=== PATIENT | male | born 1950 | race Caucasian/White ===

== ENCOUNTER 2017-03-04 06:00 | Emergency (ER) | payer BC ==
[2017-03-04 06:55] LABS: CHLORIDE,CL 103 mEq/L (98-106); SODIUM,NA 137 mEq/L (136-145)
--- NOTE | 2017-03-04 07:10 | EDM.PDOC ---
<Marla Evans - Last Filed: 03/04/17 06:59> ED HPI GENERAL MEDICAL PROBLEM - General Chief Complaint: General Stated Complaint: CP Time Seen by Provider: 03/04/17 06:35 Source of Information: Reports: Patient History Limitations: Reports: No Limitations - History of Present Illness INITIAL COMMENTS - FREE TEXT/NARRATIVE: Patient presents today with concerns of back and chest pain. He was at work at the [employer] and around 4 am he started having pain in his back and radiated through to this chest. Went and sat out in his car and took 2 aspirin but the pain didn't subside. He states he was belching a great deal but that did not relieve the pain. Patient has a cardiac/DC history, had CABG 6 years ago. Has not had a stress test since that time. Did have some shortness of breath with this. No nausea or diaphoresis. He relates that prior to his DC, he was feeling very weak, got very diaphoretic and legs did not feel they would hold him up. Did not experience those same symptoms today. 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 Also relates that he has broke posterior ribs that on occasion to give him pain but that also feels different than today. He is pain free while at rest now. Onset: sudden Duration: Hour(s): Location: Reports: chest, back Quality: Reports: Ache Severity: mild Improves with: Reports: Rest Associated Symptoms: Reports: chest pain, shortness of breath (breathing became heavier but didn't feel short of breath), weakness (legs feel somewhat weak). 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 Chest Pain Score (Numeric/FACES): 4 - Related Data Allergies Allergy/AdvReac Type Severity Reaction Status Date / Time meperidine [From Demerol] Allergy Cannot Verified 03/04/17 06:14 Remember Penicillins Allergy Airway Verified 03/04/17 06:14 Tightness Home Meds: Home Meds Aspirin/Calcium Carbonate/Mag [Aspirin Buffered 325 mg Tab] 325 mg PO DAILY 03/07 [History] Ibuprofen 600 mg PO Q6H PRN 07/30/16 [History] Cholecalciferol (Vitamin D3) [Vitamin D3] 2,000 unit PO DAILY 08/03/16 [History] Magnesium 250 mg PO DAILY 08/03/16 [History] atorvaSTATin Calcium [Atorvastatin Calcium] 20 mg PO DAILY 08/03/16 [History] Lisinopril 10 mg PO DAILY 10/10/16 [History] Past Medical History HEENT History: Reports: Hard of hearing Cardiovascular History: Reports: High cholesterol, Hypertension, [place] Other Cardiovascular History: reports that pt had a heart attack in 2010 follow by a "5 way coronary artery bypass." Gastrointestinal History: Reports: GERD, Other (see below) Other Gastrointestinal History: colitis Genitourinary History: Reports: Renal calculus Musculoskeletal History: Reports: Arthritis, Fracture, Neck pain, chronic Other Musculoskeletal History: "I have broken lots of bones. 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." Oncologic (Cancer) History: Reports: Other (see below) Other Oncologic History: skin CA Dermatologic History: Reports: Other (see below) Other Dermatologic History: skin CA - Past Surgical History Cardiovascular Surgical History: Reports: Other (see below) Other Cardiovascular Surgeries/Procedures: 5 way bypass GI Surgical History: Reports: Cholecystectomy Dermatological Surgical History: Reports: Skin biopsy Social & Family History - Family History Family Medical History: Noncontributory Cardiac: Reports: [place] Oncologic: Reports: Brain - Tobacco Use Smoking Status *Q: Never Smoker Second Hand Smoke Exposure: No - Caffeine Use Caffeine Use: Reports: None - Recreational Drug Use Recreational Drug Use: No ED ROS GENERAL - Review of Systems Review Of Systems: See Below Constitutional: Reports: Weakness. Denies: Fever, Chills, Malaise, Fatigue, Decreased Appetite HEENT: Reports: Rhinitis, Sinus Problem Respiratory: Denies: Shortness of Breath, Other Cardiovascular: Reports: Chest Pain. Denies: Edema, Lightheadedness Endocrine: Reports: Fatigue GI/Abdominal: Denies: Abdominal Pain, Nausea, Vomiting : Reports: No Symptoms Musculoskeletal: Reports: Back Pain, Joint Pain Skin: Reports: No Symptoms Neurological: Reports: No Symptoms Psychiatric: Reports: No Symptoms ED EXAM, GENERAL - Physical Exam Exam: See Below Exam Limited By: No Limitations General Appearance: Alert, WD/WN, No Apparent Distress Ears: Normal External Exam, Normal TMs Nose: Normal Inspection, Normal Mucosa, No Blood Throat/Mouth: Normal Inspection, Normal Oropharynx Head: Normocephalic Neck: Normal Inspection, Supple, Non-Tender Respiratory/Chest: No Respiratory Distress, Lungs Clear, Normal Breath Sounds Cardiovascular: No Edema, Bradycardia GI/Abdominal: Normal Bowel Sounds, Soft, Non-Tender Extremities: Normal Inspection, Normal Capillary Refill Neurological: Alert, Oriented Skin Exam: Warm, Dry EKG INTERPRETATION EKG Date: 03/04/17 Rhythm: NSR Rate (beats/min): 52 Course - Vital Signs Last Recorded V/S: Last Vital Signs Temp 97.2 F 03/04/17 10:17 Pulse 51 L 03/04/17 10:17 Resp 18 03/04/17 10:17 BP 107/65 03/04/17 10:17 Pulse Ox 96 03/04/17 10:17 - Orders/Labs/Meds Orders: Active Orders 24 hr Category Date Time Status EKG Documentation Completion [RC] STAT Care 03/04/17 06:25 Active Chest 2V [CR] Stat Exams 03/04/17 06:07 Taken Labs: Laboratory Tests 03/04/17 03/04/17 03/04/17 Range/Units 06:32 06:32 06:32 WBC 6.9 (5.0-10.0) 10^3/uL RBC 4.24 L (4.50-6.00) 10^6/uL Hgb 12.9 L (14.0-18.0) g/dL Hct 38.6 L (40.0-54.0) % MCV 91.0 (82.0-94.0) fL MCH 30.4 (27.0-32.0) pg MCHC 33.4 (33.0-38.0) g/dL RDW Coeff of Keith 12.3 (11.0-15.0) % Plt Count 157 (150-400) 10^3/uL Neut % (Auto) 64.9 (35-85) % Lymph % (Auto) 24.0 (10-55) % Cloud % (Auto) 7.9 (0-16) % Eos % (Auto) 3.1 (0-5) % Baso % (Auto) 0.1 (0-3) % Neut # (Auto) 4.46 (1.80-7.00) 10^3/uL Lymph # (Auto) 1.65 (1.00-4.80) 10^3/uL Cloud # (Auto) 0.54 (0.00-0.80) 10^3/uL Eos # (Auto) 0.21 (0.00-0.45) 10^3/uL Baso # (Auto) 0.01 10^3/uL PT 11.0 (9.7-12.3) SEC INR 1.02 (0.92-1.18) APTT 27.9 (24.5-30.9) SEC Sodium 137 (136-145) mEq/L Potassium 4.2 (3.5-5.0) mEq/L Chloride 103 (98-106) mEq/L Carbon Dioxide 26 (21-32) mmol/L BUN 35 H D (7-18) mg/dL Creatinine 1.4 H (0.7-1.3) mg/dL Est Cr Clr Drug Dosing 51.57 mL/min Estimated GFR (MDRD) 51 L (>=60) mL/min Glucose 144 H D (75-99) mg/dL Calcium 8.5 (8.4-10.1) mg/dL Lactate Dehydrogenase 159 (100-190) U/L Creatine Kinase 296 H (35-232) U/L Troponin I < 0.017 (0.00-0.06) ng/mL Amylase 68 (25-115) U/L 03/04/17 Range/Units 11:09 WBC (5.0-10.0) 10^3/uL RBC (4.50-6.00) 10^6/uL Hgb (14.0-18.0) g/dL Hct (40.0-54.0) % MCV (82.0-94.0) fL MCH (27.0-32.0) pg MCHC (33.0-38.0) g/dL RDW Coeff of Keith (11.0-15.0) % Plt Count (150-400) 10^3/uL Neut % (Auto) (35-85) % Lymph % (Auto) (10-55) % Cloud % (Auto) (0-16) % Eos % (Auto) (0-5) % Baso % (Auto) (0-3) % Neut # (Auto) (1.80-7.00) 10^3/uL Lymph # (Auto) (1.00-4.80) 10^3/uL Cloud # (Auto) (0.00-0.80) 10^3/uL Eos # (Auto) (0.00-0.45) 10^3/uL Baso # (Auto) 10^3/uL PT (9.7-12.3) SEC INR (0.92-1.18) APTT (24.5-30.9) SEC Sodium (136-145) mEq/L Potassium (3.5-5.0) mEq/L Chloride (98-106) mEq/L Carbon Dioxide (21-32) mmol/L BUN (7-18) mg/dL Creatinine (0.7-1.3) mg/dL Est Cr Clr Drug Dosing mL/min Estimated GFR (MDRD) (>=60) mL/min Glucose (75-99) mg/dL Calcium (8.4-10.1) mg/dL Lactate Dehydrogenase 173 (100-190) U/L Creatine Kinase 270 H (35-232) U/L Troponin I < 0.017 (0.00-0.06) ng/mL Amylase (25-115) U/L - Re-Assessments/Exams Free Text/Narrative Re-Assessment/Exam: 03/04/17 07:24 Patient EKG shows sinus olman but he relates that is chronic for him. CPK is elevated, troponin normal. Patient informed. Due to his medical history and symptoms, will repeat his troponin in 4 hours and possibly, if normal, schedule him for a cardiolyte stress test. Departure - Departure Disposition: Home, Self-Care 01 Clinical Impression: Chest wall pain Back pain Qualifiers: Back pain location: thoracic back pain Chronicity: chronic Back pain laterality : midline Qualified Code(s): M54.6 - Pain in thoracic spine; G89.29 - Other chronic pain - Discharge Information Referrals: Dewayne Cramer MD [Primary Care Provider] - Forms: ED Department Discharge Additional Instructions: Follow up with Dr. Cramer in 1 week for the back pain or if chest pains return Tylenol or advil as needed for pain Ice to back where it is most painful Recheck sooner if symptoms change <Kathy Dailey - Last Filed: 03/04/17 11:50> Course - Re-Assessments/Exams Free Text/Narrative Re-Assessment/Exam: 03/04/17 11:46 In to discuss normal repeat labs. Will discharge home Note for work given to return Follow up with Dr. Cramer in 1 week for recheck. Departure - Departure Time of Disposition: 11:48 Condition: good - Problem List & Annotations (1) Back pain SNOMED Code(s): 757771665 Code(s): M54.9 - DORSALGIA, UNSPECIFIED Status: Acute Priority: High Current Visit: Yes Qualifiers: Back pain location: thoracic back pain Chronicity: chronic Back pain laterality: midline Qualified Code(s): M54.6 - Pain in thoracic spine; G89.29 - Other chronic pain (2) Chest wall pain SNOMED Code(s): 977402879 Code(s): R07.89 - OTHER CHEST PAIN Status: Acute Priority: High Current Visit: Yes - Problem List Review Problem List Initiated/Reviewed/Updated: Yes
[2017-03-04 10:18] VITALS: BP 107/65
== END 2017-03-04 11:56 | disposition home or self-care (01) ==
LOC: CC.ED 06:00
DX: R07.89 Other chest pain (principal); M54.6 Pain in thoracic spine; G89.29 Other chronic pain; E78.00 Pure hypercholesterolemia, unspecified; I10 Essential (primary) hypertension; I25.2 Old myocardial infarction; K21.9 Gastro-esophageal reflux disease without esophagitis; M19.90 Unspecified osteoarthritis, unspecified site; F41.9 Anxiety disorder, unspecified; F32.9 Major depressive disorder, single episode, unspecified; Z88.0 Allergy status to penicillin; Z88.5 Allergy status to narcotic agent; Z79.82 Long term (current) use of aspirin; Z79.899 Other long term (current) drug therapy; Z90.49 Acquired absence of other specified parts of digestive tract; Z95.1 Presence of aortocoronary bypass graft
CPT/HCPCS: 36415; 71020; 80048; 82150; 82550; 83615; 84484; 85025; 85610; 85730; 93005; 99285

== ENCOUNTER 2017-08-12 13:14 | Emergency (ER) | payer MEDICARE, BC ==
[2017-08-12 13:26] VITALS: BP 143/82
[2017-08-12 13:54] LABS: CHLORIDE,CL 106 mEq/L (98-106); SODIUM,NA 142 mEq/L (136-145)
[2017-08-12] MEDS ORDERED: Lidocaine 1% 20 ML MDV ONE (14:16)
[2017-08-12] MEDS ORDERED: cefTRIAXone 1 GM Vial IM ONE (14:18)
[2017-08-12] MEDS ORDERED: methylPREDNISolone Acetate 80 MG/ML SDV IM ONE (14:18)
--- NOTE | 2017-08-12 14:20 | EDM.PDOC ---
ED HPI GENERAL MEDICAL PROBLEM - General Chief Complaint: General Stated Complaint: R) flank pain, cold symptoms Time Seen by Provider: 08/12/17 14:04 Source of Information: Reports: Patient History Limitations: Reports: No Limitations - History of Present Illness INITIAL COMMENTS - FREE TEXT/NARRATIVE: Patient presents to ER with a 2 week history of cough and chest congestion. States symptoms are worsening. He is worried about pneumonia as he has had this several times in the past. States started off as sinus congestion and postnasal drainage. Unable to sleep due to drainage and cough. Patient denies fever. Does have productive cough of green phlegm. He denies sore throat or ear pain. Patient has taken advil and OTC cough medicine without much relief. Onset: Gradual Duration: Week(s): Location: Reports: Chest Severity: Mild Improves with: Reports: Rest Associated Symptoms: Reports: Cough, cough w sputum, Headaches, Shortness of Breath. 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 Right Flank Pain Score (Numeric/FACES): 5 - Related Data Allergies Allergy/AdvReac Type Severity Reaction Status Date / Time meperidine [From Demerol] Allergy Cannot Verified 08/12/17 13:26 Remember Penicillins Allergy Airway Verified 08/12/17 13:26 Tightness Home Meds: Home Meds Ibuprofen 600 mg PO Q6H PRN 07/30/16 [History] Cholecalciferol (Vitamin D3) [Vitamin D3] 2,000 unit PO DAILY 08/03/16 [History] Magnesium 250 mg PO DAILY 08/03/16 [History] atorvaSTATin Calcium [Atorvastatin Calcium] 20 mg PO DAILY 08/03/16 [History] Lisinopril 10 mg PO DAILY 10/10/16 [History] Aspirin [Ecotrin] 81 mg PO DAILY 08/12/17 [History] Past Medical History HEENT History: Reports: Hard of Hearing Cardiovascular History: Reports: High Cholesterol, Hypertension, [place] Other Cardiovascular History: reports that pt had a heart attack in 2010 follow by a "5 way coronary artery bypass." Gastrointestinal History: Reports: GERD, Other (See Below) Other Gastrointestinal History: colitis Genitourinary History: Reports: Renal Calculus Musculoskeletal History: Reports: Arthritis, Fracture, Neck Pain, Chronic Other Musculoskeletal History: "I have broken lots of bones. 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." Oncologic (Cancer) History: Reports: Other (See Below) Other Oncologic History: skin CA Dermatologic History: Reports: Other (See Below) Other Dermatologic History: skin CA - Past Surgical History Cardiovascular Surgical History: Reports: Other (See Below) Dermatological Surgical History: Reports: Skin Biopsy Social & Family History - Family History Family Medical History: Noncontributory Cardiac: Reports: [place] Oncologic: Reports: Brain - Tobacco Use Smoking Status *Q: Never Smoker Second Hand Smoke Exposure: No - Caffeine Use Caffeine Use: Reports: None - Recreational Drug Use Recreational Drug Use: No ED ROS GENERAL - Review of Systems Review Of Systems: See Below Constitutional: Reports: Chills, Weakness. Denies: Fever HEENT: Reports: Rhinitis, Sinus Problem, Throat Pain. Denies: Ear Discharge, Ear Pain Respiratory: Reports: Cough, Sputum. Denies: Shortness of Breath Cardiovascular: Reports: No Symptoms Endocrine: Reports: Fatigue GI/Abdominal: Reports: No Symptoms : Reports: No Symptoms Musculoskeletal: Reports: No Symptoms Skin: Reports: No Symptoms Neurological: Reports: Headache ED EXAM, GENERAL - Physical Exam Exam: See Below Exam Limited By: No Limitations General Appearance: Alert, WD/WN, No Apparent Distress Ears: Normal External Exam, Normal TMs Nose: Normal Inspection, Nasal Drainage Throat/Mouth: Normal Inspection, Normal Oropharynx Head: Normocephalic Neck: Normal Inspection, Supple, Non-Tender Respiratory/Chest: No Respiratory Distress, Decreased Breath Sounds Cardiovascular: Regular Rate, Rhythm GI/Abdominal: Normal Bowel Sounds, Soft, Non-Tender Extremities: Normal Inspection, No Pedal Edema Neurological: Alert, Oriented Skin Exam: Warm, Dry Course - Vital Signs Last Recorded V/S: Last Vital Signs Temp 98.9 F 08/12/17 13:20 Pulse 68 08/12/17 13:20 Resp 20 08/12/17 13:20 BP 143/82 H 08/12/17 13:20 Pulse Ox 97 08/12/17 13:20 - Orders/Labs/Meds Orders: Active Orders 24 hr Category Date Time Status Chest 2V [CR] Stat Exams 08/12/17 13:37 Taken Labs: Laboratory Tests 08/12/17 08/12/17 08/12/17 Range/Units 13:37 13:49 13:49 WBC 9.0 (5.0-10.0) 10^3/uL RBC 4.90 (4.50-6.00) 10^6/uL Hgb 14.5 (14.0-18.0) g/dL Hct 43.9 (40.0-54.0) % MCV 89.6 (82.0-94.0) fL MCH 29.6 (27.0-32.0) pg MCHC 33.0 (33.0-38.0) g/dL RDW Coeff of Keith 13.3 (11.0-15.0) % Plt Count 168 (150-400) 10^3/uL Neut % (Auto) 64.7 (35-85) % Lymph % (Auto) 22.2 (10-55) % Wilkinson % (Auto) 8.9 (0-16) % Eos % (Auto) 4.0 (0-5) % Baso % (Auto) 0.2 (0-3) % Neut # (Auto) 5.80 (1.80-7.00) 10^3/uL Lymph # (Auto) 1.99 (1.00-4.80) 10^3/uL Wilkinson # (Auto) 0.80 (0.00-0.80) 10^3/uL Eos # (Auto) 0.36 (0.00-0.45) 10^3/uL Baso # (Auto) 0.02 10^3/uL Sodium 142 (136-145) mEq/L Potassium 4.1 (3.5-5.0) mEq/L Chloride 106 (98-106) mEq/L Carbon Dioxide 29 (21-32) mmol/L BUN 11 D (7-18) mg/dL Creatinine 1.2 (0.7-1.3) mg/dL Est Cr Clr Drug Dosing 59.38 mL/min Estimated GFR (MDRD) > 60 (>=60) mL/min Glucose 102 H (75-99) mg/dL Calcium 8.9 (8.4-10.1) mg/dL C-Reactive Protein 2.2 H (0.2-0.8) mg/dL Urine Color Yellow (YELLOW) Urine Appearance Clear (CLEAR) Urine pH 6.0 (4.5-8.0) Ur Specific [place] 1.010 (1.003-1.020) Urine Protein Negative (NEGATIVE) mg/dL Urine Glucose (UA) Negative (NEGATIVE) mg/dL Urine Ketones Negative (NEGATIVE) mg/dL Urine Occult Blood Negative (NEGATIVE) Urine Nitrite Negative (NEGATIVE) Urine Bilirubin Negative (NEGATIVE) Urine Urobilinogen 0.2 (0.2-1.0) EU/dL Ur Leukocyte Esterase Negative (NEGATIVE) Urine RBC Not seen (0-5) /HPF Urine WBC Not seen (0-5) /HPF Meds: Medications Discontinued Medications Generic Name Dose Route Start Last Admin Trade Name Blackq PRN Reason Stop Dose Admin Ceftriaxone Sodium 1 gm 08/12/17 14:18 08/12/17 14:30 Rocephin IM 08/12/17 14:19 1 gm ONETIME ONE Administration Lidocaine HCl Confirm 08/12/17 14:16 08/12/17 14:30 Xylocaine 1% Administered 08/12/17 14:17 2.1 ml Dose Administration 20 ml .ROUTE .STK-MED ONE Methylprednisolone Acetate 80 mg 08/12/17 14:18 08/12/17 14:28 Depo-Medrol IM 08/12/17 14:19 80 mg ONETIME ONE Administration - Re-Assessments/Exams Free Text/Narrative Re-Assessment/Exam: 08/12/17 Lab and xray reviewed. All stable at this time. Departure - Departure Time of Disposition: 14:19 Disposition: Home, Self-Care 01 Condition: Good Clinical Impression: Bronchitis - Discharge Information Forms: ED Department Discharge Additional Instructions: 1. Rest 2. Push fluids 3. Levaquin 500 mg daily for 10 days 4. Follow up with primary care provider if any ongoing concerns. - My Orders Last 24 Hours: My Active Orders 08/12/17 13:37 Chest 2V [CR] Stat - Assessment/Plan Last 24 Hours: My Active Orders 08/12/17 13:37 Chest 2V [CR] Stat
== END 2017-08-12 14:40 | disposition home or self-care (01) ==
LOC: CC.ED 13:14
DX: J40 Bronchitis, not specified as acute or chronic (principal); E78.00 Pure hypercholesterolemia, unspecified; I10 Essential (primary) hypertension; Z88.0 Allergy status to penicillin; Z79.82 Long term (current) use of aspirin
CPT/HCPCS: 36415; 71020; 80048; 81001; 85025; 86140; 96372; 99283; J0696; J1040

== ENCOUNTER 2017-08-18 21:25 | Emergency (ER) | payer MEDICARE, BC ==
[2017-08-18 21:28] VITALS: BP 125/74
[2017-08-18] MEDS ORDERED: Ondansetron 4 MG/2 ML SDV IVPUSH STA (21:29)
[2017-08-18] MEDS ORDERED: Ketorolac 30 MG/ML SDV IVPUSH ONE (21:29)
--- NOTE | 2017-08-18 22:09 | EDM.PDOC ---
ED HPI GENERAL MEDICAL PROBLEM - General Chief Complaint: Headache Stated Complaint: headache Time Seen by Provider: 08/18/17 21:45 Source of Information: Reports: Patient History Limitations: Reports: No Limitations - History of Present Illness INITIAL COMMENTS - FREE TEXT/NARRATIVE: Patient presents to ER with complaints of a severe headache. States was sitting in the recliner tonight watching TV when started experiencing neck pain that ultimately radiated around the right side of his head. States pain to forehead and by eye were very intense. He did have associated nausea and photophobia. Has never experienced migraines or really even had headaches. He does admit to moving 2 couches to the dump ground earlier today and relates did tweak his shoulder. Tonight shoulder joint not hurting so bad but neck remains sore. Did take one of his 's excedrin and has some relief of the headache now. Onset: Today, Sudden Duration: Minutes: Location: Reports: Head, Neck Quality: Reports: Sharp, Throbbing Severity: Severe Improves with: Reports: Medication Associated Symptoms: Reports: Nausea/Vomiting. 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 (see below) Other Treatments AIR INTERCEPT CONTROLLER SUPERVISOR: excedrin migraine Right Headache Pain Score (Numeric/FACES): 10 - Related Data Allergies Allergy/AdvReac Type Severity Reaction Status Date / Time meperidine [From Demerol] Allergy Cannot Verified 08/18/17 21:28 Remember Penicillins Allergy Airway Verified 08/18/17 21:28 Tightness Home Meds: Home Meds Ibuprofen 600 mg PO Q6H PRN 07/30/16 [History] Cholecalciferol (Vitamin D3) [Vitamin D3] 2,000 unit PO DAILY 08/03/16 [History] Magnesium 250 mg PO DAILY 08/03/16 [History] atorvaSTATin Calcium [Atorvastatin Calcium] 20 mg PO DAILY 08/03/16 [History] Lisinopril 10 mg PO DAILY 10/10/16 [History] Aspirin [Ecotrin] 81 mg PO DAILY 08/12/17 [History] Past Medical History HEENT History: Reports: Hard of Hearing Cardiovascular History: Reports: High Cholesterol, Hypertension, [place] Other Cardiovascular History: reports that pt had a heart attack in 2010 follow by a "5 way coronary artery bypass." Gastrointestinal History: Reports: GERD, Other (See Below) Other Gastrointestinal History: colitis Genitourinary History: Reports: Renal Calculus Musculoskeletal History: Reports: Arthritis, Fracture, Neck Pain, Chronic Other Musculoskeletal History: "I have broken lots of bones. 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." Oncologic (Cancer) History: Reports: Other (See Below) Other Oncologic History: skin CA Dermatologic History: Reports: Other (See Below) Other Dermatologic History: skin CA - Past Surgical History Cardiovascular Surgical History: Reports: Other (See Below) Dermatological Surgical History: Reports: Skin Biopsy Social & Family History - Family History Family Medical History: Noncontributory Cardiac: Reports: [place] Oncologic: Reports: Brain - Tobacco Use Smoking Status *Q: Never Smoker Second Hand Smoke Exposure: No - Caffeine Use Caffeine Use: Reports: Tea - Recreational Drug Use Recreational Drug Use: No ED ROS GENERAL - Review of Systems Review Of Systems: See Below Constitutional: Denies: Fever, Chills, Malaise, Weakness, Decreased Appetite HEENT: Reports: Eye Pain. Denies: Ear Pain, Rhinitis, Throat Pain Respiratory: Denies: Shortness of Breath, Wheezing, Cough Cardiovascular: Denies: Chest Pain, Edema, Lightheadedness Endocrine: Denies: Fatigue GI/Abdominal: Reports: Nausea. Denies: Abdominal Pain, Vomiting : Reports: No Symptoms Musculoskeletal: Reports: Neck Pain Skin: Reports: No Symptoms Neurological: Reports: Headache. Denies: Trouble Speaking, Difficulty Walking, Weakness, Change in Speech, Gait Disturbance Psychiatric: Reports: No Symptoms - Physical Exam Exam: See Below Exam Limited By: No Limitations General Appearance: Alert, WD/WN, No Apparent Distress Eye Exam: Bilateral Eye: EOMI, PERRL Ears: Normal External Exam, Normal TMs Nose: Normal Inspection, Normal Mucosa, No Blood Throat/Mouth: Normal Inspection, Normal Oropharynx Head Exam: Normocephalic Neck: Normal Inspection, Supple, Full Range of Motion (has pain with rotation of neck), Tender Lateral (right) Respiratory/Chest: No Respiratory Distress, Lungs Clear, Normal Breath Sounds Cardiovascular: Regular Rate, Rhythm GI/Abdominal: Normal Bowel Sounds, Soft, Non-Tender Extremities: Normal Inspection, Normal Capillary Refill Psychiatric: Normal Affect, Normal Mood Skin Exam: Warm, Dry Course - Vital Signs Last Recorded V/S: Last Vital Signs Temp 96.0 F 08/18/17 21:25 Pulse 65 08/18/17 21:25 Resp 18 08/18/17 21:25 BP 125/74 08/18/17 21:25 Pulse Ox 98 08/18/17 21:25 - Orders/Labs/Meds Orders: Active Orders 24 hr Category Date Time Status Head wo Cont [CT] Stat Exams 08/18/17 21:53 Ordered Meds: Medications Discontinued Medications Generic Name Dose Route Start Last Admin Trade Name Elizabeth PRN Reason Stop Dose Admin Ketorolac Tromethamine 30 mg 08/18/17 21:29 08/18/17 21:35 Toradol IVPUSH 08/18/17 21:30 30 mg ONETIME ONE Administration Ondansetron HCl 4 mg 08/18/17 21:29 08/18/17 21:35 Zofran IVPUSH 08/18/17 21:30 4 mg NOW STA Administration Orphenadrine Citrate 60 mg 08/18/17 22:17 08/18/17 22:18 Norflex IM 08/18/17 22:18 Not Given NOW STA Orphenadrine Citrate 60 mg 08/18/17 22:18 08/18/17 22:20 Norflex IV 08/18/17 22:19 60 mg NOW STA Administration - Re-Assessments/Exams Free Text/Narrative Re-Assessment/Exam: 08/18/17 22:23 Patient does have improvement of his headache. CT scan done. Awaiting report. Norflex given in the ER. Departure - Departure Time of Disposition: 22:35 Disposition: Home, Self-Care 01 Condition: Fair Clinical Impression: Tension-type headache - Discharge Information Referrals: Dewayne Cramer MD [Primary Care Provider] - Forms: ED Department Discharge Additional Instructions: 1. Rest 2. Push fluids 3. Toradol 10 mg every 6 hours as needed for headache/neck pain 4. Flexeril 10 mg every 8 hours as needed for muscle spasms 5. If continue to have ongoing neck pain, may need to consider seeing physical therapy 6. Follow up with Dr. Cramer for any ongoing concern - My Orders Last 24 Hours: My Active Orders 08/18/17 21:53 Head wo Cont [CT] Stat - Assessment/Plan Last 24 Hours: My Active Orders 08/18/17 21:53 Head wo Cont [CT] Stat
== END 2017-08-18 22:48 | disposition home or self-care (01) ==
LOC: CC.ED 21:25
DX: G44.209 Tension-type headache, unspecified, not intractable (principal); I10 Essential (primary) hypertension; E78.00 Pure hypercholesterolemia, unspecified; Z88.0 Allergy status to penicillin; Z88.8 Allergy status to other drugs, medicaments and biological substances
CPT/HCPCS: 70450; 96374; 96375; 99284; J1885; J2360; J2405; 99283

== ENCOUNTER 2017-08-24 13:58 | Emergency (ER) | payer MEDICARE, BC ==
[2017-08-24] MEDS ORDERED: Meclizine 12.5 MG Tab PO ONE (14:38)
--- NOTE | 2017-08-24 14:46 | EDM.PDOC ---
ED HPI GENERAL MEDICAL PROBLEM - General Chief Complaint: Neuro Symptoms/Deficits Stated Complaint: dizziness, head tingling Time Seen by Provider: 08/24/17 14:25 Source of Information: Reports: Patient History Limitations: Reports: No Limitations - History of Present Illness INITIAL COMMENTS - FREE TEXT/NARRATIVE: States that he woke up at 0200 this morning at about and he was very dizzy and everything was spinning. Then up again at 0400 and the same thing happened. Feels weak no n/v/d with it "If I lay still it isn't bad" The top of my head tingles and feels prickly. No unilateral weakness noted with the dizziness. No headache. No chest pain with it. No SOB with it. no cough but did state that he had a cold about 10 days ago. Onset: Sudden Location: Reports: Head Worsens with: Reports: Movement Associated Symptoms: Denies: Chest Pain, Cough, Fever/Chills, Headaches, Nausea/ Vomiting, Shortness of Breath - Related Data Allergies Allergy/AdvReac Type Severity Reaction Status Date / Time meperidine [From Demerol] Allergy Cannot Verified 08/24/17 14:05 Remember Penicillins Allergy Airway Verified 08/24/17 14:05 Tightness Home Meds: Home Meds Ibuprofen 600 mg PO Q6H PRN 07/30/16 [History] Cholecalciferol (Vitamin D3) [Vitamin D3] 2,000 unit PO DAILY 08/03/16 [History] Magnesium 250 mg PO DAILY 08/03/16 [History] atorvaSTATin Calcium [Atorvastatin Calcium] 20 mg PO DAILY 08/03/16 [History] Lisinopril 10 mg PO DAILY 10/10/16 [History] Aspirin [Ecotrin] 81 mg PO DAILY 08/12/17 [History] Past Medical History HEENT History: Reports: Hard of Hearing Cardiovascular History: Reports: High Cholesterol, Hypertension, [place] Other Cardiovascular History: reports that pt had a heart attack in 2010 follow by a "5 way coronary artery bypass." Gastrointestinal History: Reports: GERD, Other (See Below) Other Gastrointestinal History: colitis Genitourinary History: Reports: Renal Calculus Musculoskeletal History: Reports: Arthritis, Fracture, Neck Pain, Chronic Other Musculoskeletal History: "I have broken lots of bones. 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." Oncologic (Cancer) History: Reports: Other (See Below) Other Oncologic History: skin CA Dermatologic History: Reports: Other (See Below) Other Dermatologic History: skin CA - Past Surgical History Cardiovascular Surgical History: Reports: Other (See Below) Dermatological Surgical History: Reports: Skin Biopsy Social & Family History - Family History Family Medical History: Noncontributory Cardiac: Reports: [place] Oncologic: Reports: Brain - Tobacco Use Smoking Status *Q: Never Smoker Second Hand Smoke Exposure: No - Caffeine Use Caffeine Use: Reports: Tea - Recreational Drug Use Recreational Drug Use: No ED ROS GENERAL - Review of Systems Review Of Systems: See Below Constitutional: Reports: Weakness. Denies: Fever, Chills HEENT: Reports: Ear Pain (last evening for about 15 minutes.) Respiratory: Denies: Shortness of Breath, Cough Cardiovascular: Denies: Chest Pain, Dyspnea on Exertion, Edema GI/Abdominal: Denies: Constipation, Diarrhea, Nausea, Vomiting Musculoskeletal: Reports: No Symptoms Skin: Reports: No Symptoms ED EXAM, NEURO - Physical Exam Exam: See Below Exam Limited By: No Limitations General Appearance: Alert, Mild Distress Ears: Normal External Exam, Normal Canal, Normal TMs Nose: Normal Inspection, Normal Mucosa Throat/Mouth: Normal Inspection, Normal Oropharynx, No Airway Compromise Head Exam: Atraumatic, Normocephalic Neck: Normal Inspection, Supple, Non-Tender Respiratory/Chest: No Respiratory Distress, Lungs Clear, Normal Breath Sounds Cardiovascular: Regular Rate, Rhythm, No Edema, No Murmur GI/Abdominal: Normal Bowel Sounds, Soft, Non-Tender, No Organomegaly Neurological: Alert, Oriented x 3, Other (NHISS stroke scale is 0. neuro check is completely normal.) Back Exam: Normal Inspection, Full Range of Motion Extremities: Normal Inspection, No Pedal Edema, Normal Capillary Refill Skin Exam: Warm, Dry, Intact Course - Vital Signs Last Recorded V/S: Last Vital Signs Temp 97.2 F 08/24/17 14:02 Pulse 66 08/24/17 14:55 Resp 20 08/24/17 14:02 BP 199/85 H 08/24/17 15:16 Pulse Ox 96 08/24/17 14:02 - Orders/Labs/Meds Labs: Laboratory Tests 08/24/17 08/24/17 08/24/17 Range/Units 14:15 14:15 14:15 WBC 8.8 (5.0-10.0) 10^3/uL RBC 4.99 (4.50-6.00) 10^6/uL Hgb 14.9 (14.0-18.0) g/dL Hct 44.5 (40.0-54.0) % MCV 89.2 (82.0-94.0) fL MCH 29.9 (27.0-32.0) pg MCHC 33.5 (33.0-38.0) g/dL RDW Coeff of Keith 13.6 (11.0-15.0) % Plt Count 189 (150-400) 10^3/uL Neut % (Auto) 67.2 (35-85) % Lymph % (Auto) 22.5 (10-55) % [place] % (Auto) 8.3 (0-16) % Eos % (Auto) 1.8 (0-5) % Baso % (Auto) 0.2 (0-3) % Neut # (Auto) 5.91 (1.80-7.00) 10^3/uL Lymph # (Auto) 1.98 (1.00-4.80) 10^3/uL [place] # (Auto) 0.73 (0.00-0.80) 10^3/uL Eos # (Auto) 0.16 (0.00-0.45) 10^3/uL Baso # (Auto) 0.02 10^3/uL PT 11.4 (9.7-12.3) SEC INR 1.05 (0.92-1.18) Sodium 136 (136-145) mEq/L Potassium 4.1 (3.5-5.0) mEq/L Chloride 102 (98-106) mEq/L Carbon Dioxide 28 (21-32) mmol/L BUN 21 H D (7-18) mg/dL Creatinine 1.2 (0.7-1.3) mg/dL Est Cr Clr Drug Dosing 59.38 mL/min Estimated GFR (MDRD) > 60 (>=60) mL/min Glucose 127 H (75-99) mg/dL Calcium 9.4 (8.4-10.1) mg/dL Lactate Dehydrogenase 172 (100-190) U/L Creatine Kinase 63 (35-232) U/L Troponin I < 0.017 (0.00-0.06) ng/mL Meds: Medications Discontinued Medications Generic Name Dose Route Start Last Admin Trade Name Elizabeth PRN Reason Stop Dose Admin Clonidine HCl 0.1 mg 08/24/17 15:14 08/24/17 15:16 Catapres PO 08/24/17 15:15 0.1 mg NOW ONE Administration Meclizine HCl 25 mg 08/24/17 14:38 08/24/17 14:41 Antivert PO 08/24/17 14:39 25 mg ONETIME ONE Administration - Re-Assessments/Exams Free Text/Narrative Re-Assessment/Exam: 08/24/17 15:49 In to visit with pt and daughter. He feels much better as far as the dizziness. No chest pain or SOB. Is very talkative which daughter states is his normal. Is able to be up and around without increase in dizziness or having to hold on to wall. Feels much calmer at this time. Departure - Departure Time of Disposition: 15:51 Disposition: Home, Self-Care 01 Condition: Good Clinical Impression: Inner ear dysfunction Qualifiers: Laterality: bilateral Qualified Code(s): H83.93 - Unspecified disease of inner ear, bilateral - Discharge Information Forms: ED Department Discharge Additional Instructions: Meclizine 25 mg three tmes a day for the next week and then as needed if dizzy Push fluids as much as possible Check BP at home daily and if not below 140/90 then contact your primary care provider - Problem List & Annotations (1) Inner ear dysfunction SNOMED Code(s): 956022015 Code(s): H83.90 - UNSPECIFIED DISEASE OF INNER EAR, UNSPECIFIED EAR Status : Acute Priority: High Qualifiers: Laterality: bilateral Qualified Code(s): H83.93 - Unspecified disease of inner ear, bilateral (2) Hypertension SNOMED Code(s): 85100398 Code(s): I10 - ESSENTIAL (PRIMARY) HYPERTENSION Status: Chronic Priority : High Qualifiers: Hypertension type: essential hypertension Qualified Code(s): I10 - Essential (primary) hypertension
[2017-08-24 14:48] LABS: CHLORIDE,CL 102 mEq/L (98-106); SODIUM,NA 136 mEq/L (136-145)
[2017-08-24] MEDS ORDERED: cloNIDine 0.1 MG Tab PO ONE (15:14)
[2017-08-24 15:16] VITALS: BP 199/85
== END 2017-08-24 15:56 | disposition home or self-care (01) ==
LOC: CC.ED 13:58
DX: H83.93 Unspecified disease of inner ear, bilateral (principal); I10 Essential (primary) hypertension; E78.00 Pure hypercholesterolemia, unspecified; Z88.0 Allergy status to penicillin; Z88.8 Allergy status to other drugs, medicaments and biological substances; Z79.82 Long term (current) use of aspirin
CPT/HCPCS: 36415; 80048; 82550; 83615; 84484; 85025; 85610; 93005; 99284; A9270; 93010; 99283

== ENCOUNTER 2019-01-09 21:05 | Emergency (ER) | payer BC, MEDICARE ==
[2019-01-09] MEDS ORDERED: Alum Hydrox/Mag Hydrox/Simeth 30 ML, Lidocaine 2% 15 ML PO ONE ×2 (21:09)
--- NOTE | 2019-01-09 21:14 | EDM.PDOC ---
ED HPI GENERAL MEDICAL PROBLEM - General Chief Complaint: Chest Pain Stated Complaint: chest and epigastric pain Time Seen by Provider: 01/09/19 21:05 Source of Information: Reports: Patient History Limitations: Reports: No Limitations - History of Present Illness INITIAL COMMENTS - FREE TEXT/NARRATIVE: Patient presents to ER with midepigastric and chest discomfort. States has been noting increased discomfort, mild dizziness and nausea after eating for the last month or so but has gotten much worse over the last 3 days. States "feels like I swallowed gasoline". Chest muscles are "sore". No shortness of breath or diaphoresis. Does have a history of 5 vessel bypass. Has been taking TUMS and OTC antacid pills but has not been getting relief from that. Unable to eat anything or lie down now due to the discomfort. Denies melena or hematochezia. History of cholecystectomy 2 years ago. Denies any history of PUD. Onset: Gradual Duration: Day(s):, Getting Worse Location: Reports: Chest, Abdomen Quality: Reports: Burning Severity: Severe Improves with: Reports: None Worsens with: Reports: Eating Associated Symptoms: Reports: Chest Pain, Nausea/Vomiting. Denies: Cough, Diaphoresis, Fever/Chills, Loss of Appetite, Shortness of Breath Chest Pain Score (Numeric/FACES): 10 - Related Data Allergies Allergy/AdvReac Type Severity Reaction Status Date / Time meperidine [From Demerol] Allergy Cannot Verified 01/09/19 21:17 Remember Penicillins Allergy Airway Verified 01/09/19 21:17 Tightness Home Meds: Home Meds Ibuprofen 600 mg PO Q6H PRN 07/30/16 [History] Cholecalciferol (Vitamin D3) [Vitamin D3] 2,000 unit PO DAILY 08/03/16 [History] Magnesium 250 mg PO DAILY 08/03/16 [History] atorvaSTATin Calcium [Atorvastatin Calcium] 20 mg PO DAILY 08/03/16 [History] Lisinopril 10 mg PO DAILY 10/10/16 [History] Aspirin [Ecotrin] 81 mg PO DAILY 08/12/17 [History] Past Medical History HEENT History: Reports: Hard of Hearing Cardiovascular History: Reports: High Cholesterol, Hypertension, [place] Other Cardiovascular History: reports that pt had a heart attack in 2010 follow by a "5 way coronary artery bypass." Gastrointestinal History: Reports: GERD, Other (See Below) Other Gastrointestinal History: colitis Genitourinary History: Reports: Renal Calculus Musculoskeletal History: Reports: Arthritis, Fracture, Neck Pain, Chronic Other Musculoskeletal History: "I have broken lots of bones. 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 Denies: Fever, Chills, Malaise, Weakness HEENT: Reports: No Symptoms Respiratory: Reports: Pleuritic Chest Pain. Denies: Shortness of Breath, Cough Cardiovascular: Denies: Chest Pain, Edema, Lightheadedness Endocrine: Denies: Fatigue GI/Abdominal: Reports: Abdominal Pain, Nausea. Denies: Diarrhea, Hematochezia, Melena, Vomiting : Reports: No Symptoms Musculoskeletal: Reports: No Symptoms Skin: Reports: No Symptoms Neurological: Reports: Dizziness ED EXAM, GI/ABD - Physical Exam Exam: See Below Exam Limited By: No Limitations General Appearance: Alert, WD/WN, Mild Distress Ears: Normal External Exam, Normal TMs Nose: Normal Inspection, Normal Mucosa, No Blood Throat/Mouth: Normal Inspection, Normal Oropharynx Head: Normocephalic Neck: Normal Inspection, Supple, Non-Tender Respiratory/Chest: No Respiratory Distress, Lungs Clear, Normal Breath Sounds Cardiovascular: Regular Rate, Rhythm GI/Abdominal Exam: Normal Bowel Sounds, Soft, Tender (midepigastric area) Extremities: Normal Inspection, Normal Capillary Refill Neurological: Alert, Oriented Skin Exam: Warm, Dry Course - Vital Signs Last Recorded V/S: Last Vital Signs Temp 97.5 F 01/09/19 21:20 Pulse 65 01/09/19 21:42 Resp 18 01/09/19 21:20 BP 155/97 H 03/18/19 21:42 Pulse Ox 100 01/09/19 21:20 - Orders/Labs/Meds Orders: Active Orders 24 hr Category Date Time Status EKG Documentation Completion [RC] STAT Care 01/09/19 21:24 Active EKG 12 Lead [EK] Stat Ther 01/09/19 21:08 Ordered Labs: Laboratory Tests 01/09/19 01/09/19 Range/Units 21:20 21:20 WBC 8.0 (5.0-10.0) 10^3/uL RBC 4.98 (4.50-6.00) 10^6/uL Hgb 15.6 (14.0-18.0) g/dL Hct 45.5 (40.0-54.0) % MCV 91.4 (82.0-94.0) fL MCH 31.3 (27.0-32.0) pg MCHC 34.3 (33.0-38.0) g/dL RDW Coeff of Keith 12.7 (11.0-15.0) % Plt Count 185 (150-400) 10^3/uL Neut % (Auto) 59.7 (35-85) % Lymph % (Auto) 30.2 (10-55) % [place] % (Auto) 7.2 (0-16) % Eos % (Auto) 2.7 (0-5) % Baso % (Auto) 0.2 (0-3) % Neut # (Auto) 4.78 (1.80-7.00) 10^3/uL Lymph # (Auto) 2.42 (1.00-4.80) 10^3/uL [place] # (Auto) 0.58 (0.00-0.80) 10^3/uL Eos # (Auto) 0.22 (0.00-0.45) 10^3/uL Baso # (Auto) 0.02 10^3/uL Sodium 142 (136-145) mEq/L Potassium 3.9 (3.5-5.0) mEq/L Chloride 104 (98-106) mEq/L Carbon Dioxide 30 (21-32) mmol/L BUN 31 H (7-18) mg/dL Creatinine 1.4 H (0.7-1.3) mg/dL Est Cr Clr Drug Dosing 50.21 mL/min Estimated GFR (MDRD) 51 L (>=60) mL/min Glucose 113 H (75-99) mg/dL Calcium 9.3 (8.4-10.1) mg/dL Lactate Dehydrogenase 166 (100-190) U/L Creatine Kinase 97 (35-232) U/L Troponin I 0.051 (0.00-0.06) ng/mL Lipase 127 (73-393) U/L Meds: Medications Discontinued Medications Generic Name Dose Route Start Last Admin Trade Name Elizabeth PRN Reason Stop Dose Admin Al Hydroxide/Mg Hydroxide 30 0 ml 01/09/19 21:09 01/09/19 21:10 ml/ Lidocaine HCl 15 ml PO 01/09/19 21:10 30 ml ONETIME ONE Administration Pantoprazole Sodium 40 mg 01/09/19 22:00 Protonix PO 01/09/19 22:01 NOW STA - Re-Assessments/Exams Free Text/Narrative Re-Assessment/Exam: 01/09/19 22:02 Lab results all essentially negative. patient did get significant relief from the GI cocktail, feeling much better, states was "almost instantaneous". Departure - Departure Time of Disposition: 22:02 Disposition: Home, Self-Care 01 Condition: Good Clinical Impression: GERD (gastroesophageal reflux disease) - Discharge Information *PRESCRIPTION DRUG MONITORING PROGRAM REVIEWED*: No *COPY OF PRESCRIPTION DRUG MONITORING REPORT IN PATIENT MELISSA: No Forms: ED Department Discharge Additional Instructions: 1. Rest 2. Push fluids 3. Avoid stimulants, ie. caffeine, spicy foods, alcohol, nicotine 4. Start Protonix 40 mg daily 5. Carafate 1 gm four times a day for 10 days 6. If pain persists, likely proceed with EGD (scope of abdomen) 7. Follow up in clinic for blood pressure check later this week. - My Orders Last 24 Hours: My Active Orders 01/09/19 21:08 EKG 12 Lead [EK] Stat 01/09/19 21:24 EKG Documentation Completion [RC] STAT - Assessment/Plan Last 24 Hours: My Active Orders 01/09/19 21:08 EKG 12 Lead [EK] Stat 01/09/19 21:24 EKG Documentation Completion [RC] STAT
[2019-01-09 21:43] VITALS: BP 155/97
[2019-01-09] MEDS ORDERED: Pantoprazole 40 MG Tab.CR PO STA (22:00)
== END 2019-01-09 22:20 | disposition home or self-care (01) ==
LOC: CC.ED 21:05
DX: K21.9 Gastro-esophageal reflux disease without esophagitis (principal); I10 Essential (primary) hypertension; Z88.0 Allergy status to penicillin; Z88.8 Allergy status to other drugs, medicaments and biological substances; Z79.899 Other long term (current) drug therapy
CPT/HCPCS: 36415; 80048; 82550; 83615; 83690; 84484; 85025; 93005; 99284; A9270

== ENCOUNTER 2019-02-02 19:51 | Emergency (ER) | payer BC, MEDICARE ==
[2019-02-02 20:44] VITALS: BP 157/69
--- NOTE | 2019-02-02 21:07 | EDM.PDOC ---
ED HPI GENERAL MEDICAL PROBLEM - General Chief Complaint: Chest Pain Stated Complaint: chest pain Time Seen by Provider: 02/02/19 20:27 Source of Information: Reports: Patient History Limitations: Reports: No Limitations - History of Present Illness INITIAL COMMENTS - FREE TEXT/NARRATIVE: Patient presents to ER with complaints of chest heaviness and shortness of breath. Was sitting at home in his recliner, heard the wind blow over his garbage can so he got up suddenly and quickly went out the door. States was "residential down the driveway when had sudden chest heaviness and had trouble breathing". No nausea or diaphoresis. Did have to stop what he was doing and relates had a difficult time getting back to his house. On presentation to ER, chest heaviness has nearly resolved. "Doesn't feel quite right yet though". Did have CABG back in 2010, has not had any cardiac issues since that time. States "was run over 17 years ago and has had continued back and chest discomfort since then as well". Was seen in the ER weeks ago for midepigastric/ burning pain in chest. Has been on a PPI since that time and admits that type of discomfort has much improved. Onset: Today, Sudden Duration: Minutes: Location: Reports: Chest Quality: Reports: Sharp, Stabbing Severity: Moderate Worsens with: Reports: Rest Associated Symptoms: Reports: Chest Pain, Shortness of Breath. Denies: Cough, Diaphoresis, Fever/Chills, Headaches, Loss of Appetite, Nausea/Vomiting, Syncope , Weakness Chest Pain Score (Numeric/FACES): 3 - Related Data Allergies Allergy/AdvReac Type Severity Reaction Status Date / Time meperidine [From Demerol] Allergy Cannot Verified 02/02/19 20:11 Remember Penicillins Allergy Airway Verified 02/02/19 20:11 Tightness Home Meds: Home Meds Ibuprofen 600 mg PO Q6H PRN 07/30/16 [History] atorvaSTATin Calcium [Atorvastatin Calcium] 20 mg PO DAILY 08/03/16 [History] Lisinopril 10 mg PO DAILY 10/10/16 [History] Aspirin [Ecotrin] 81 mg PO DAILY 08/12/17 [History] Past Medical History HEENT History: Reports: Hard of Hearing Cardiovascular History: Reports: High Cholesterol, Hypertension, [place] Other Cardiovascular History: reports that pt had a heart attack in 2011 follow by a "5 way coronary artery bypass." Gastrointestinal History: Reports: GERD, Other (See Below) Other Gastrointestinal History: colitis Genitourinary History: Reports: Renal Calculus Musculoskeletal History: Reports: Arthritis, Fracture, Neck Pain, Chronic, Other (See Below) Other Musculoskeletal History: "I have broken lots of bones. 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." Hematologic History: Reports: Blood Transfusion(s) Oncologic (Cancer) History: Reports: Basal Cell Carcinoma Other Oncologic History: skin CA Dermatologic History: Reports: Other (See Below) Other Dermatologic History: skin CA, basal carcinoma - Past Surgical History HEENT Surgical History: Reports: None Cardiovascular Surgical History: Reports: Coronary Artery Bypass GI Surgical History: Reports: Cholecystectomy, Colonoscopy, Hernia Repair/Other Male Surgical History: Reports: Lithotripsy ([facility]) Neurological Surgical History: Reports: None Musculoskeletal Surgical History: Reports: ORIF Oncologic Surgical History: Reports: None Dermatological Surgical History: Reports: Skin Biopsy Social & Family History - Family History Family Medical History: Noncontributory Cardiac: Reports: [place] Oncologic: Reports: Brain - Tobacco Use Smoking Status *Q: Never Smoker - Caffeine Use Caffeine Use: Reports: None - Recreational Drug Use Recreational Drug Use: No ED ROS GENERAL - Review of Systems Review Of Systems: See Below Constitutional: Denies: Fever, Chills, Malaise, Weakness HEENT: Reports: No Symptoms Respiratory: Reports: Shortness of Breath. Denies: Pleuritic Chest Pain, Cough Cardiovascular: Reports: Chest Pain. Denies: Edema, Lightheadedness Endocrine: Denies: Fatigue GI/Abdominal: Denies: Abdominal Pain, Nausea, Vomiting : Reports: No Symptoms Musculoskeletal: Reports: Arm Pain, Back Pain Skin: Reports: No Symptoms Neurological: Reports: No Symptoms Psychiatric: Reports: No Symptoms ED EXAM, GENERAL - Physical Exam Exam: See Below Exam Limited By: No Limitations General Appearance: Alert, WD/WN, No Apparent Distress Ears: Normal External Exam, Normal TMs Nose: Normal Inspection, Normal Mucosa, No Blood Throat/Mouth: Normal Inspection, Normal Oropharynx Head: Normocephalic Neck: Normal Inspection, Supple, Non-Tender Respiratory/Chest: No Respiratory Distress, Lungs Clear, Normal Breath Sounds Cardiovascular: Regular Rate, Rhythm, No Edema GI/Abdominal: Normal Bowel Sounds, Soft, Non-Tender Extremities: Normal Inspection, No Pedal Edema Neurological: Alert, Oriented Skin Exam: Warm, Dry Course - Vital Signs Last Recorded V/S: Last Vital Signs Temp 97.4 F 02/02/19 19:54 Pulse 57 L 02/02/19 20:43 Resp 16 02/02/19 20:43 BP 157/69 H 02/02/19 20:43 Pulse Ox 96 02/02/19 20:43 - Orders/Labs/Meds Labs: Laboratory Tests 02/02/19 02/02/19 02/02/19 Range/Units 20:09 20:09 20:09 WBC 7.4 (5.0-10.0) 10^3/uL RBC 4.58 (4.50-6.00) 10^6/uL Hgb 14.5 (14.0-18.0) g/dL Hct 41.7 (40.0-54.0) % MCV 91.0 (82.0-94.0) fL MCH 31.7 (27.0-32.0) pg MCHC 34.8 (33.0-38.0) g/dL RDW Coeff of Keith 12.4 (11.0-15.0) % Plt Count 161 (150-400) 10^3/uL Neut % (Auto) 55.9 (35-85) % Lymph % (Auto) 30.1 (10-55) % [place] % (Auto) 8.3 (0-16) % Eos % (Auto) 5.3 H (0-5) % Baso % (Auto) 0.4 (0-3) % Neut # (Auto) 4.13 (1.80-7.00) 10^3/uL Lymph # (Auto) 2.22 (1.00-4.80) 10^3/uL [place] # (Auto) 0.61 (0.00-0.80) 10^3/uL Eos # (Auto) 0.39 (0.00-0.45) 10^3/uL Baso # (Auto) 0.03 10^3/uL PT 10.1 (9.7-12.3) SEC INR 0.98 (0.92-1.18) Sodium 142 (136-145) mEq/L Potassium 3.6 (3.5-5.0) mEq/L Chloride 107 H (98-106) mEq/L Carbon Dioxide 28 (21-32) mmol/L BUN 25 H (7-18) mg/dL Creatinine 1.4 H (0.7-1.3) mg/dL Est Cr Clr Drug Dosing 50.21 mL/min Estimated GFR (MDRD) 51 L (>=60) mL/min Glucose 148 H D (75-99) mg/dL Calcium 9.1 (8.4-10.1) mg/dL Lactate Dehydrogenase 170 (100-190) U/L Creatine Kinase 211 (35-232) U/L Troponin I 0.024 (0.00-0.06) ng/mL - Re-Assessments/Exams Free Text/Narrative Re-Assessment/Exam: 02/02 Labs, EKG normal at this time. Discussed pursuing stress test as outpatient. Patient hesitant, concerned of the "chemical portion of a cardiolyte". Will contact patient tomorrow to arrange if agreeable at that time. Departure - Departure Time of Disposition: 21:04 Disposition: Home, Self-Care 01 Clinical Impression: Atypical chest pain Forms: ED Department Discharge Additional Instructions: 1. Rest 2. Usual meds as ordered 3. Will call you to schedule cardiolyte stress test. 4. Return if any new concerns or complaints
== END 2019-02-02 21:11 | disposition home or self-care (01) ==
LOC: CC.ED 19:51
DX: R07.89 Other chest pain (principal); E78.00 Pure hypercholesterolemia, unspecified; I10 Essential (primary) hypertension; I25.2 Old myocardial infarction; F41.9 Anxiety disorder, unspecified; F32.9 Major depressive disorder, single episode, unspecified; Z88.8 Allergy status to other drugs, medicaments and biological substances; Z88.0 Allergy status to penicillin; Z79.899 Other long term (current) drug therapy; Z79.82 Long term (current) use of aspirin; Z95.1 Presence of aortocoronary bypass graft
CPT/HCPCS: 36415; 71046; 80048; 82550; 83615; 84484; 85025; 85610; 93005; 99285-25

== ENCOUNTER 2019-02-13 01:04 | Observation (INO) | payer BC, MEDICARE ==
[2019-02-13] MEDS: Albuterol/Ipratropium 3.0-0.5 MG/3 ML Neb Soln ONE ×2 (01:10→01:56)
[2019-02-13] MEDS ORDERED: Albuterol/Ipratropium 3.0-0.5 MG/3 ML Neb Soln NEB ONE (01:10)
--- NOTE | 2019-02-13 01:21 | EDM.PDOC ---
ED HPI GENERAL MEDICAL PROBLEM - General Chief Complaint: Respiratory Problem Stated Complaint: SOB Time Seen by Provider: 02/13/19 01:04 Source of Information: Reports: Patient History Limitations: Reports: No Limitations - History of Present Illness INITIAL COMMENTS - FREE TEXT/NARRATIVE: Patient presents to ER with shortness of breath. Concerned that he aspirated. Relates he awoke suddenly with coughing, felt he was choking. Got up to the bathroom and thought he was going to black out from lack of air so called EMS. EMS arrived to find patient lying on his right side, coughing up yellowish mucous. Oxygen sats were in the 80s. Applied NRB mask with 15 liters of oxygen. EMS relates he appeared dusky and now is much improved after the oxygen. He states still feels chest heaviness and shortness of breath. Is anxious. Oxygen sat on room air here 98%. Lung sounds are clear. Per EMS, had wheezing in the right lower lobe. Patient denies heartburn. Concerns of having a heart attack. Is actually scheduled for a cardiolyte this as he has been in the ER x2 prior to this with chest pain and has history of CABG in 2010. Has been taking Protonix now for the last month and that has helped his acid reflux. Onset: Today, Sudden Duration: Minutes:, Improving Location: Reports: Chest Quality: Reports: Ache, Dull Severity: Moderate Improves with: Reports: Rest Associated Symptoms: Reports: Chest Pain, Cough, cough w sputum, Nausea/Vomiting , Shortness of Breath. 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 - Related Data Allergies Allergy/AdvReac Type Severity Reaction Status Date / Time meperidine [From Demerol] Allergy Cannot Verified 02/13/19 01:19 Remember Penicillins Allergy Airway Verified 02/13/19 01:19 Tightness Home Meds: Home Meds Ibuprofen 600 mg PO Q6H PRN 07/30/16 [History] atorvaSTATin Calcium [Atorvastatin Calcium] 20 mg PO DAILY 08/03/16 [History] Lisinopril 10 mg PO DAILY 10/10/16 [History] Aspirin [Ecotrin] 81 mg PO DAILY 08/12/17 [History] Pantoprazole Sodium [Protonix] 40 mg PO DAILY 02/13/19 [History] Past Medical History HEENT History: Reports: Hard of Hearing Cardiovascular History: Reports: High Cholesterol, Hypertension, CT Other Cardiovascular History: reports that pt had a heart attack in 2011 follow by a "5 way coronary artery bypass." Gastrointestinal History: Reports: GERD, Other (See Below) Other Gastrointestinal History: colitis Genitourinary History: Reports: Renal Calculus Musculoskeletal History: Reports: Arthritis, Fracture, Neck Pain, Chronic, Other (See Below) Other Musculoskeletal History: "I have broken lots of bones. 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." Hematologic History: Reports: Blood Transfusion(s) Oncologic (Cancer) History: Reports: Basal Cell Carcinoma Other Oncologic History: skin CA Dermatologic History: Reports: Other (See Below) Other Dermatologic History: skin CA, basal carcinoma - Past Surgical History HEENT Surgical History: Reports: None Cardiovascular Surgical History: Reports: Coronary Artery Bypass GI Surgical History: Reports: Cholecystectomy, Colonoscopy, Hernia Repair/Other Male Surgical History: Reports: Lithotripsy (ESWL) Neurological Surgical History: Reports: None Musculoskeletal Surgical History: Reports: ORIF Oncologic Surgical History: Reports: None Dermatological Surgical History: Reports: Skin Biopsy Social & Family History - Family History Family Medical History: Noncontributory Cardiac: Reports: CT Oncologic: Reports: Brain - Caffeine Use Caffeine Use: Reports: None ED ROS GENERAL - Review of Systems Review Of Systems: See Below Constitutional: Denies: Fever, Chills, Malaise, Weakness, Fatigue HEENT: Reports: Rhinitis. Denies: Ear Pain, Sinus Problem, Throat Pain Respiratory: Reports: Shortness of Breath, Cough, Sputum Cardiovascular: Reports: Lightheadedness. Denies: Chest Pain, Edema Endocrine: Denies: Fatigue GI/Abdominal: Reports: Nausea, Vomiting. Denies: Abdominal Pain, Decreased Appetite : Reports: No Symptoms Musculoskeletal: Reports: No Symptoms Skin: Reports: No Symptoms Neurological: Reports: No Symptoms Psychiatric: Reports: Anxiety ED EXAM, GENERAL - Physical Exam Exam: See Below Exam Limited By: No Limitations General Appearance: Alert, WD/WN, No Apparent Distress Ears: Normal External Exam, Normal TMs Nose: Normal Inspection, Normal Mucosa, No Blood Throat/Mouth: Normal Inspection, Normal Oropharynx Head: Normocephalic Neck: Normal Inspection, Supple, Non-Tender Respiratory/Chest: No Respiratory Distress, Lungs Clear, Normal Breath Sounds Cardiovascular: Regular Rate, Rhythm, No Edema GI/Abdominal: Normal Bowel Sounds, Soft, Non-Tender Extremities: Normal Inspection, Normal Capillary Refill Neurological: Alert, Oriented Psychiatric: Anxious Skin Exam: Warm, Dry Course - Vital Signs Last Recorded V/S: Last Vital Signs Temp 98.6 F 02/13/19 01:05 Pulse 67 02/13/19 02:07 Resp 16 02/13/19 02:07 BP 162/84 H 02/13/19 02:07 Pulse Ox 95 02/13/19 02:07 - Orders/Labs/Meds Orders: Active Orders 24 hr Category Date Time Status Patient Status Manage Transfer [TRANSFER] Routine ADT 02/13/19 02:12 Ordered RT Aerosol Therapy [RC] ASDIRECTED Care 02/13/19 01:47 Active Respiratory Care Assess and Treatment [CONS] Stat Cons 02/13/19 01:14 Active Chest 2V [CR] Stat Exams 02/13/19 01:14 Taken Ondansetron [Zofran] Med 02/13/19 01:43 Active 4 mg IVPUSH Q6H PRN Resuscitation Status Routine Resus Stat 02/13/19 02:13 Ordered Medication Orders Ondansetron HCl (Zofran) 4 mg IVPUSH Q6H PRN PRN Reason: Nausea Last Admin: 02/13/19 01:51 Dose: 4 mg Labs: Laboratory Tests 02/13/19 02/13/19 02/13/19 Range/Units 01:40 01:40 01:40 WBC 7.8 (5.0-10.0) 10^3/uL RBC 4.68 (4.50-6.00) 10^6/uL Hgb 14.7 (14.0-18.0) g/dL Hct 42.6 (40.0-54.0) % MCV 91.0 (82.0-94.0) fL MCH 31.4 (27.0-32.0) pg MCHC 34.5 (33.0-38.0) g/dL RDW Coeff of Keith 12.4 (11.0-15.0) % Plt Count 140 L (150-400) 10^3/uL Neut % (Auto) 56.6 (35-85) % Lymph % (Auto) 33.0 (10-55) % [place] % (Auto) 8.7 (0-16) % Eos % (Auto) 1.4 (0-5) % Baso % (Auto) 0.3 (0-3) % Neut # (Auto) 4.41 (1.80-7.00) 10^3/uL Lymph # (Auto) 2.57 (1.00-4.80) 10^3/uL [place] # (Auto) 0.68 (0.00-0.80) 10^3/uL Eos # (Auto) 0.11 (0.00-0.45) 10^3/uL Baso # (Auto) 0.02 10^3/uL D-Dimer, Quantitative 0.28 (0.00-0.50) Sodium 141 (136-145) mEq/L Potassium 3.2 L (3.5-5.0) mEq/L Chloride 103 (98-106) mEq/L Carbon Dioxide 29 (21-32) mmol/L BUN 15 (7-18) mg/dL Creatinine 1.5 H (0.7-1.3) mg/dL Est Cr Clr Drug Dosing 46.87 mL/min Estimated GFR (MDRD) 47 L (>=60) mL/min Glucose 130 H (75-99) mg/dL Calcium 9.0 (8.4-10.1) mg/dL Troponin I 0.026 (0.00-0.06) ng/mL C-Reactive Protein < 0.2 L (0.2-0.8) mg/dL Meds: Medications Generic Name Dose Route Start Last Admin Trade Name Freq PRN Reason Stop Dose Admin Ondansetron HCl 4 mg 02/13/19 01:43 02/13/19 01:51 Zofran IVPUSH 4 mg Q6H PRN Administration Nausea Discontinued Medications Generic Name Dose Route Start Last Admin Trade Name Freq PRN Reason Stop Dose Admin Albuterol/Ipratropium Confirm 02/13/19 00:59 02/13/19 01:56 Duoneb 3.0-0.5 Mg/3 Ml Administered 02/13/19 01:00 Not Given Dose 3 ml .ROUTE .STK-MED ONE Albuterol/Ipratropium 3 ml 02/13/19 01:10 02/13/19 01:10 Duoneb 3.0-0.5 Mg/3 Ml NEB 02/13/19 01:11 3 ml ONETIME ONE Administration - Re-Assessments/Exams Free Text/Narrative Re-Assessment/Exam: 02/13/19 02:18 Lab and xray normal. Patient still complaining of burning/discomfort in his chest and shortness of breath. Has been nauseated so given zofran. Feels weak. Will keep him observation for cardiac monitoring and repeat of labs. Departure - Departure Time of Disposition: : Disposition: Refer to Observation Condition: Good Clinical Impression: Shortness of breath, GERD (gastroesophageal reflux disease) - Discharge Information *PRESCRIPTION DRUG MONITORING PROGRAM REVIEWED*: No *COPY OF PRESCRIPTION DRUG MONITORING REPORT IN PATIENT MELISSA: No Forms: ED Department Discharge - Problem List & Annotations (1) Atypical chest pain SNOMED Code(s): 477212796 Code(s): R07.89 - OTHER CHEST PAIN Status: Acute Priority: High Current Visit: Yes (2) GERD (gastroesophageal reflux disease) SNOMED Code(s): 553820123 Code(s): K21.9 - GASTRO-ESOPHAGEAL REFLUX DISEASE WITHOUT ESOPHAGITIS Status: Acute Priority: High Current Visit: Yes (3) Shortness of breath SNOMED Code(s): 089321092 Code(s): R06.02 - SHORTNESS OF BREATH Status: Acute Priority: High Current Visit: Yes - Problem List Review Problem List Initiated/Reviewed/Updated: Yes - My Orders Last 24 Hours: My Active Orders 02/13/19 01:14 Respiratory Care Assess and Treatment [CONS] Stat Chest 2V [CR] Stat 02/13/19 01:43 Ondansetron [Zofran] 4 mg IVPUSH Q6H PRN 02/13/19 01:47 RT Aerosol Therapy [RC] ASDIRECTED 02/13/19 02:12 Patient Status Manage Transfer [TRANSFER] Routine 02/13/19 02:13 Resuscitation Status Routine - Assessment/Plan Admission H&P: Please use this note as an admission H&P Last 24 Hours: My Active Orders 02/13/19 01:14 Respiratory Care Assess and Treatment [CONS] Stat Chest 2V [CR] Stat 02/13/19 01:43 Ondansetron [Zofran] 4 mg IVPUSH Q6H PRN 02/13/19 01:47 RT Aerosol Therapy [RC] ASDIRECTED 02/13/19 02:12 Patient Status Manage Transfer [TRANSFER] Routine 02/13/19 02:13 Resuscitation Status Routine Assessment:: Shortness of Breath GERD Atypical chest discomfort Plan: Admit to observation. Will repeat labs and EKG in am. Start IV Protonix
[2019-02-13] MEDS ORDERED: Ondansetron 4 MG/2 ML SDV IVPUSH PRN (01:43)
[2019-02-13 02:03] LABS: CHLORIDE,CL 103 mEq/L (98-106); SODIUM,NA 141 mEq/L (136-145)
[2019-02-13] MEDS ORDERED: Acetaminophen 325 MG Tab PO PRN (02:47)
[2019-02-13] MEDS ORDERED: Ondansetron 4 MG Tab.DIS PO PRN (02:47)
[2019-02-13] MEDS ORDERED: Pantoprazole 40 MG Vial IVPUSH SCH (02:47)
[2019-02-13] MEDS ORDERED: Albuterol/Ipratropium 3.0-0.5 MG/3 ML Neb Soln NEB PRN (02:47)
[2019-02-13] MEDS ORDERED: Sodium Chloride 0.9% 10 ML Syringe FLUSH PRN (02:47)
[2019-02-13] MEDS ORDERED: Ondansetron 4 MG/2 ML SDV IV PRN (02:47)
[2019-02-13] MEDS ORDERED: Lisinopril 10 MG Tab PO SCH (08:00)
[2019-02-13] MEDS ORDERED: atorvaSTATin 20 MG Tab PO SCH (08:00)
[2019-02-13] MEDS ORDERED: Aspirin 81 MG Tab.EC PO SCH (08:00)
[2019-02-13 08:02] VITALS: BP 124/71
[2019-02-13 08:02] LABS: CHLORIDE,CL 106 mEq/L (98-106); SODIUM,NA 141 mEq/L (136-145)
--- NOTE | 2019-02-13 09:08 | PCM.DCSUM1 ---
Discharge Summary - Hospital Course Free Text/Narrative:: Patient presented to ER early am with increased shortness of breath. States awoke suddenly, questioned if aspirated as was having a great deal of sputum production, felt lightheaded during cough. He was ambulating to the bathroom and had to lie down on the floor. As was unable to catch breath, EMS was called. EMS states was dusky on arrival, did respond well to 15 liters of oxygen. Patient questions if may have vomited or had acid reflux and then "choked on it". Labs done in ER show normal WBC, negative CRP. Chest xray unremarkable. Effie chest discomfort so was admitted to monitor due to shortness of breath, cardiac monitoring Diagnosis: Stroke: No Modified [place] Scale: No Symptoms at All Modified [place] Scale Score: 0 - Discharge Data Discharge Date: 02/13/19 Discharge Disposition: Home, Self-Care 01 Condition: Good - Discharge Diagnosis/Problem(s) (1) Atypical chest pain SNOMED Code(s): 494521856 ICD Code: R07.89 - OTHER CHEST PAIN Status: Acute Priority: High (2) GERD (gastroesophageal reflux disease) SNOMED Code(s): 606522251 ICD Code: K21.9 - GASTRO-ESOPHAGEAL REFLUX DISEASE WITHOUT ESOPHAGITIS Status: Acute Priority: High (3) Shortness of breath SNOMED Code(s): 207645065 ICD Code: R06.02 - SHORTNESS OF BREATH Status: Acute Priority: High - Patient Summary/Data Complications: none Consults: Consultations 02/13/19 01:14 Respiratory Care Assess and Treatment [CONS] Stat Hospital Course: Patient feels much better this am. Now questions if it was the whipped cream he ate for supper as that has triggered worsening reflux before for him. He states his throat hurts this am now and feels related to reflux. Denies any shortness of breath or chest discomfort this am. Labs have remained normal this am. He is up and ambulating now, less weakness. EKG unchanged. Ate breakfast without difficulty. Will discharge home. Continue Protonix. Avoid eating in the evening. Will proceed with cardiolyte stress test on as previously scheduled. - Patient Instructions Diet: Usual Diet as Tolerated Activity: As Tolerated - Discharge Plan *PRESCRIPTION DRUG MONITORING PROGRAM REVIEWED*: No *COPY OF PRESCRIPTION DRUG MONITORING REPORT IN PATIENT MELISSA: No Home Medications: Home Meds Ibuprofen 600 mg PO Q6H PRN 07/30/16 [History] atorvaSTATin Calcium [Atorvastatin Calcium] 20 mg PO DAILY 08/03/16 [History] Lisinopril 10 mg PO DAILY 10/10/16 [History] Aspirin [Ecotrin] 81 mg PO DAILY 08/12/17 [History] Pantoprazole Sodium [Protonix] 40 mg PO DAILY 02/13/19 [History] Patient Handouts: Gastroesophageal Reflux Disease, Adult, [id number] Forms: ED Department Discharge Referrals: Marla Evans PA [Primary Care Provider] - (Hospital follow up in one week with Antoinette) - Discharge Summary/Plan Comment DC Time >30 min.: No - General Info Date of Service: 02/13/19 Admission Dx/Problem (Free Text: GERD Functional Status: Reports: Pain Controlled, Tolerating Diet, Ambulating - Review of Systems General: Reports: Fatigue, Malaise. Denies: Weakness HEENT: Reports: Sore Throat Pulmonary: Denies: Shortness of Breath, Cough Cardiovascular: Denies: Chest Pain, Edema, Lightheadedness Gastrointestinal: Denies: Abdominal Pain, Nausea, Vomiting Genitourinary: Reports: No Symptoms Musculoskeletal: Reports: No Symptoms Skin: Reports: No Symptoms Neurological: Reports: No Symptoms Psychiatric: Reports: No Symptoms - Patient Data Vitals - Most Recent: Last Vital Signs Temp 99.3 F 02/13/19 08:01 Pulse 64 02/13/19 08:01 Resp 16 02/13/19 08:01 BP 124/71 02/13/19 08:01 Pulse Ox 96 02/13/19 08:01 Weight - Most Recent: 190 lb 1.6 oz Lab Results - Last 24 hrs: Laboratory Results - last 24 hr 02/13/19 02/13/19 02/13/19 Range/Units 01:40 01:40 01:40 WBC 7.8 (5.0-10.0) 10^3/uL RBC 4.68 (4.50-6.00) 10^6/uL Hgb 14.7 (14.0-18.0) g/dL Hct 42.6 (40.0-54.0) % MCV 91.0 (82.0-94.0) fL MCH 31.4 (27.0-32.0) pg MCHC 34.5 (33.0-38.0) g/dL RDW Coeff of Keith 12.4 (11.0-15.0) % Plt Count 140 L (150-400) 10^3/uL Neut % (Auto) 56.6 (35-85) % Lymph % (Auto) 33.0 (10-55) % [place] % (Auto) 8.7 (0-16) % Eos % (Auto) 1.4 (0-5) % Baso % (Auto) 0.3 (0-3) % Neut # (Auto) 4.41 (1.80-7.00) 10^3/uL Lymph # (Auto) 2.57 (1.00-4.80) 10^3/uL [place] # (Auto) 0.68 (0.00-0.80) 10^3/uL Eos # (Auto) 0.11 (0.00-0.45) 10^3/uL Baso # (Auto) 0.02 10^3/uL D-Dimer, Quantitative 0.28 (0.00-0.50) Sodium 141 (136-145) mEq/L Potassium 3.2 L (3.5-5.0) mEq/L Chloride 103 (98-106) mEq/L Carbon Dioxide 29 (21-32) mmol/L BUN 15 (7-18) mg/dL Creatinine 1.5 H (0.7-1.3) mg/dL Est Cr Clr Drug Dosing 46.87 mL/min Estimated GFR (MDRD) 47 L (>=60) mL/min Glucose 130 H (75-99) mg/dL Calcium 9.0 (8.4-10.1) mg/dL Troponin I 0.026 (0.00-0.06) ng/mL C-Reactive Protein < 0.2 L (0.2-0.8) mg/dL 02/13/19 02/13/19 Range/Units 07:00 07:00 WBC 8.9 (5.0-10.0) 10^3/uL RBC 4.34 L (4.50-6.00) 10^6/uL Hgb 13.6 L (14.0-18.0) g/dL Hct 40.2 (40.0-54.0) % MCV 92.6 (82.0-94.0) fL MCH 31.3 (27.0-32.0) pg MCHC 33.8 (33.0-38.0) g/dL RDW Coeff of [place] 12.6 (11.0-15.0) % Plt Count 165 (150-400) 10^3/uL Neut % (Auto) 70.3 (35-85) % Lymph % (Auto) 21.3 (10-55) % [place] % (Auto) 7.2 (0-16) % Eos % (Auto) 1.0 (0-5) % Baso % (Auto) 0.2 (0-3) % Neut # (Auto) 6.25 (1.80-7.00) 10^3/uL Lymph # (Auto) 1.89 (1.00-4.80) 10^3/uL [place] # (Auto) 0.64 (0.00-0.80) 10^3/uL Eos # (Auto) 0.09 (0.00-0.45) 10^3/uL Baso # (Auto) 0.02 10^3/uL D-Dimer, Quantitative (0.00-0.50) Sodium 141 (136-145) mEq/L Potassium 3.8 (3.5-5.0) mEq/L Chloride 106 (98-106) mEq/L Carbon Dioxide 29 (21-32) mmol/L BUN 18 (7-18) mg/dL Creatinine 1.4 H (0.7-1.3) mg/dL Est Cr Clr Drug Dosing 50.21 mL/min Estimated GFR (MDRD) 51 L (>=60) mL/min Glucose 137 H (75-99) mg/dL Calcium 8.9 (8.4-10.1) mg/dL Troponin I 0.029 (0.00-0.06) ng/mL C-Reactive Protein < 0.2 L (0.2-0.8) mg/dL Med Orders - Current: Current Medications Acetaminophen (Tylenol) 650 mg PO Q4H PRN PRN Reason: Pain (Mild 1-3)/fever Albuterol/Ipratropium (Duoneb 3.0-0.5 Mg/3 Ml) 3 ml NEB Q4H PRN PRN Reason: Shortness Of Breath/wheezing Aspirin (Halfprin) 81 mg PO DAILY [facility] Atorvastatin Calcium (Lipitor) 20 mg PO BEDTIME MARGO Lisinopril (Prinivil) 10 mg PO DAILY [facility] Ondansetron HCl (Zofran Odt) 4 mg PO Q4H PRN PRN Reason: nausea, able to take PO Ondansetron HCl (Zofran) 4 mg IV Q4H PRN PRN Reason: Nausea/Vomiting Pantoprazole Sodium (Protonix Iv) 40 mg IVPUSH BEDTIME MARGO Last Admin: 02/13/19 03:22 Dose: 40 mg Sodium Chloride (Saline Flush) 10 ml FLUSH ASDIRECTED PRN PRN Reason: Keep Vein Open Discontinued Medications Albuterol/Ipratropium (Duoneb 3.0-0.5 Mg/3 Ml) Confirm Administered Dose 3 ml .ROUTE .STK-MED ONE Stop: 02/13/19 01:00 Last Admin: 02/13/19 01:56 Dose: Not Given Albuterol/Ipratropium (Duoneb 3.0-0.5 Mg/3 Ml) 3 ml NEB ONETIME ONE Stop: 02/13/19 01:11 Last Admin: 02/13/19 01:10 Dose: 3 ml Atorvastatin Calcium (Lipitor) 20 mg PO DAILY [facility] Ondansetron HCl (Zofran) 4 mg IVPUSH Q6H PRN PRN Reason: Nausea Last Admin: 02/13/19 01:51 Dose: 4 mg - Exam General: Reports: Alert, Oriented HEENT: Reports: Mucous Membr. Moist/[place] Neck: Reports: Supple Lungs: Reports: Clear to Auscultation, Normal Respiratory Effort Cardiovascular: Reports: Regular Rate, Regular Rhythm GI/Abdominal Exam: Normal Bowel Sounds, Soft, Non-Tender Extremities: Normal Inspection, No Pedal Edema Skin: Reports: Warm, Dry Neurological: Reports: No New Focal Deficit
== END 2019-02-13 10:30 | disposition home or self-care (01) ==
LOC: CC.ED 01:04 → CC.MS 02:13 → UNDOADMOB 02:30
PROVIDERS: ADMIT Physician Assistant Medical; ATTEND Family Medicine
DX: R06.02 Shortness of breath (principal); R07.89 Other chest pain; K21.9 Gastro-esophageal reflux disease without esophagitis; I10 Essential (primary) hypertension; I25.2 Old myocardial infarction; E78.00 Pure hypercholesterolemia, unspecified; Z88.0 Allergy status to penicillin; Z88.5 Allergy status to narcotic agent; Z95.1 Presence of aortocoronary bypass graft; Z79.82 Long term (current) use of aspirin; Z79.899 Other long term (current) drug therapy
CPT/HCPCS: 36415; 71046; 80048; 84484; 85025; 85379; 86140; 93005; 94640; 96374; 99285-25; C9113; J2405; J7620-GY

== ENCOUNTER 2019-03-19 08:00 | Emergency (ER) | payer BC, MEDICARE ==
--- NOTE | 2019-03-19 08:42 | EDM.PDOC ---
ED HPI GENERAL MEDICAL PROBLEM - General Chief Complaint: Chest Pain Stated Complaint: HEART BEATING FUNNY Time Seen by Provider: 03/19/19 08:20 Source of Information: Reports: Patient History Limitations: Reports: No Limitations - History of Present Illness INITIAL COMMENTS - FREE TEXT/NARRATIVE: This patient is a 68 year old male that presents to the ER. Patient arrived via private vehicle. Patient reports that he woke up this morning at 4am to let his dogs out and felt fine, went back to bed. Then, about 7:15am this morning he wok up. He reports that the chest tightness and sensation to belch woke him from his sleep. Patient reports that he felt like his heart was beating 7 times a second. He reports taking his pulse and becoming anxious. He reports that he told his he needed to go to the hospital. Patient reports that she told him it was nothing, patient then said he argued with his and drove himself to the hospital. Patient reports upon arriving tot [facility] and walking in, he still had his chest tightness, belching sensation, increased HR. He also then developed shortness of breath and felt dizzy. The patent reports he does not have history of Afib. Patient reports he had a 5 vessel bypass about 10 years ago in [place] after having a big [place]. Patient reports he was see in our ER 02/13/19 for shrotness of breath and CP. He reports on 02/16/19 he was supposed to have a cardiolyte, but could not lay on the table due to back pain, so it was cancelled. Onset: Today Onset Date: 03/19/19 Onset Time: 07:15 Duration: Constant Location: Reports: Chest Quality: Reports: Other ("Tightness, with senstation I have to belch) Severity: Moderate Improves with: Reports: None Worsens with: Reports: None Associated Symptoms: Reports: Chest Pain ("tightness"), Shortness of Breath. 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 - Related Data Allergies Allergy/AdvReac Type Severity Reaction Status Date / Time meperidine [From Demerol] Allergy Cannot Verified 03/19/19 08:10 Remember Penicillins Allergy Airway Verified 03/19/19 08:10 Tightness Home Meds: Home Meds Ibuprofen 600 mg PO Q6H PRN 07/30/16 [History] atorvaSTATin Calcium [Atorvastatin Calcium] 20 mg PO DAILY 08/03/16 [History] Lisinopril 10 mg PO DAILY 10/10/16 [History] Aspirin [Ecotrin] 81 mg PO DAILY 08/12/17 [History] Pantoprazole Sodium [Protonix] 40 mg PO DAILY 02/13/19 [History] Past Medical History HEENT History: Reports: Hard of Hearing Cardiovascular History: Reports: High Cholesterol, Hypertension, [place] Other Cardiovascular History: reports that pt had a heart attack in 2010 follow by a "5 way coronary artery bypass." Gastrointestinal History: Reports: GERD, Other (See Below) Other Gastrointestinal History: colitis Genitourinary History: Reports: Renal Calculus Musculoskeletal History: Reports: Arthritis, Fracture, Neck Pain, Chronic, Other (See Below) Other Musculoskeletal History: "I have broken lots of bones. 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." Hematologic History: Reports: Blood Transfusion(s) Oncologic (Cancer) History: Reports: Basal Cell Carcinoma Other Oncologic History: skin CA Dermatologic History: Reports: Other (See Below) Other Dermatologic History: skin CA, basal carcinoma - Past Surgical History HEENT Surgical History: Reports: None Cardiovascular Surgical History: Reports: Coronary Artery Bypass GI Surgical History: Reports: Cholecystectomy, Colonoscopy, Hernia Repair/Other Male Surgical History: Reports: Lithotripsy (ESWL) Neurological Surgical History: Reports: None Musculoskeletal Surgical History: Reports: ORIF Oncologic Surgical History: Reports: None Dermatological Surgical History: Reports: Skin Biopsy Social & Family History - Family History Family Medical History: Noncontributory Cardiac: Reports: [place] Oncologic: Reports: Brain - Tobacco Use Smoking Status *Q: Never Smoker - Caffeine Use Caffeine Use: Reports: Tea - Recreational Drug Use Recreational Drug Use: No ED ROS GENERAL - Review of Systems Review Of Systems: See Below Constitutional: Reports: No Symptoms HEENT: Reports: No Symptoms Respiratory: Reports: Shortness of Breath Cardiovascular: Reports: Chest Pain, Dyspnea on Exertion, Lightheadedness Endocrine: Reports: No Symptoms GI/Abdominal: Reports: No Symptoms : Reports: No Symptoms Musculoskeletal: Reports: No Symptoms Skin: Reports: No Symptoms Neurological: Reports: No Symptoms Psychiatric: Reports: No Symptoms Hematologic/Lymphatic: Reports: No Symptoms Immunologic: Reports: No Symptoms ED EXAM, GENERAL - Physical Exam Exam: See Below Exam Limited By: No Limitations General Appearance: Alert, WD/WN, Anxious, Mild Distress Eye Exam: Bilateral Eye: Normal Inspection, PERRL Ears: Normal External Exam, Normal Canal, Hearing Grossly Normal, Normal TMs Ear Exam: Bilateral Ear: Auricle Normal, Canal Normal, TM normal Nose: Normal Inspection, Normal Mucosa, No Blood Throat/Mouth: Normal Inspection, Normal Lips, Normal Teeth, Normal Gums, Normal Oropharynx, Normal Voice, No Airway Compromise Head: Atraumatic, Normocephalic Neck: Normal Inspection, Supple, Non-Tender, Full Range of Motion Respiratory/Chest: No Respiratory Distress, Lungs Clear, Normal Breath Sounds, No Accessory Muscle Use, Chest Non-Tender. No: Respiratory Distress Cardiovascular: Irregularly Irregular (Rate 110 irregular. ) Peripheral Pulses: 2+: Radial (L), Radial (R), Posterior Tibial (L), Posterior Tibial (R), Dorsalis Pedis (L), Dorsalis Pedis (R) GI/Abdominal: Normal Bowel Sounds, Soft, Non-Tender, No Organomegaly, No Distention, No Abnormal Bruit, No Mass, Pelvis Stable Back Exam: Normal Inspection, Full Range of Motion Extremities: Normal Inspection, Normal Range of Motion, Non-Tender, No Pedal Edema, Normal Capillary Refill Neurological: Alert, Oriented, Normal Cognition, Normal Gait, No Motor/Sensory Deficits Psychiatric: Normal Affect, Normal Mood Skin Exam: Warm, Dry, Intact, Normal Color, No Rash Lymphatic: No Adenopathy EKG INTERPRETATION EKG Date: 03/19/19 Time: 08:00 Rhythm: A-Fib Rate (Beats/Min): 104 Comparison: Change From Previous EKG EKG Interpretation Comments: Dr. Ashley Hansen also reviewed EKG and agrees with Course - Vital Signs Last Recorded V/S: Last Vital Signs Temp 97.3 F 03/19/19 09:59 Pulse 53 L 03/19/19 10:14 Resp 16 03/19/19 10:14 BP 179/84 H 03/19/19 10:14 Pulse Ox 98 03/19/19 10:14 - Orders/Labs/Meds Labs: Laboratory Tests 03/19/19 03/19/19 03/19/19 Range/Units 08:05 08:05 08:05 WBC 6.4 (5.0-10.0) 10^3/uL RBC 5.25 (4.50-6.00) 10^6/uL Hgb 16.7 (14.0-18.0) g/dL Hct 47.1 (40.0-54.0) % MCV 89.7 (82.0-94.0) fL MCH 31.8 (27.0-32.0) pg MCHC 35.5 (33.0-38.0) g/dL RDW Coeff of Keith 12.2 (11.0-15.0) % Plt Count 193 (150-400) 10^3/uL Neut % (Auto) 50.8 (35-85) % Lymph % (Auto) 36.0 (10-55) % [place] % (Auto) 9.6 (0-16) % Eos % (Auto) 3.3 (0-5) % Baso % (Auto) 0.3 (0-3) % Neut # (Auto) 3.23 (1.80-7.00) 10^3/uL Lymph # (Auto) 2.29 (1.00-4.80) 10^3/uL [place] # (Auto) 0.61 (0.00-0.80) 10^3/uL Eos # (Auto) 0.21 (0.00-0.45) 10^3/uL Baso # (Auto) 0.02 10^3/uL PT 10.0 (9.7-12.3) SEC INR 0.97 (0.92-1.18) APTT 26.5 (23.2-32.3) SEC Sodium (136-145) mEq/L Potassium (3.5-5.0) mEq/L Chloride (98-106) mEq/L Carbon Dioxide (21-32) mmol/L BUN (7-18) mg/dL Creatinine (0.7-1.3) mg/dL Est Cr Clr Drug Dosing mL/min Estimated GFR (MDRD) (>=60) mL/min Glucose (75-99) mg/dL Calcium (8.4-10.1) mg/dL Total Bilirubin (0.0-1.0) mg/dL AST (15-37) U/L ALT (12-78) U/L Alkaline Phosphatase (46-116) U/L Lactate Dehydrogenase 220 H (100-190) U/L Creatine Kinase 251 H (35-232) U/L Troponin I < 0.017 (0.00-0.06) ng/mL NT-Pro-B Natriuret Pep (0-1000) pg/mL Total Protein (6.4-8.2) g/dL Albumin (3.4-5.0) g/dL 03/19/19 03/19/19 Range/Units 08:34 10:00 WBC (5.0-10.0) 10^3/uL RBC (4.50-6.00) 10^6/uL Hgb (14.0-18.0) g/dL Hct (40.0-54.0) % MCV (82.0-94.0) fL MCH (27.0-32.0) pg MCHC (33.0-38.0) g/dL RDW Coeff of Keith (11.0-15.0) % Plt Count (150-400) 10^3/uL Neut % (Auto) (35-85) % Lymph % (Auto) (10-55) % [place] % (Auto) (0-16) % Eos % (Auto) (0-5) % Baso % (Auto) (0-3) % Neut # (Auto) (1.80-7.00) 10^3/uL Lymph # (Auto) (1.00-4.80) 10^3/uL [place] # (Auto) (0.00-0.80) 10^3/uL Eos # (Auto) (0.00-0.45) 10^3/uL Baso # (Auto) 10^3/uL PT (9.7-12.3) SEC INR (0.92-1.18) APTT (23.2-32.3) SEC Sodium 140 (136-145) mEq/L Potassium 4.0 (3.5-5.0) mEq/L Chloride 103 (98-106) mEq/L Carbon Dioxide 27 (21-32) mmol/L BUN 18 (7-18) mg/dL Creatinine 1.3 (0.7-1.3) mg/dL Est Cr Clr Drug Dosing 54.08 mL/min Estimated GFR (MDRD) 55 L (>=60) mL/min Glucose 123 H (75-99) mg/dL Calcium 9.5 (8.4-10.1) mg/dL Total Bilirubin 0.6 (0.0-1.0) mg/dL AST 25 (15-37) U/L ALT 27 (12-78) U/L Alkaline Phosphatase 102 (46-116) U/L Lactate Dehydrogenase (100-190) U/L Creatine Kinase (35-232) U/L Troponin I 0.030 (0.00-0.06) ng/mL NT-Pro-B Natriuret Pep 255 (0-1000) pg/mL Total Protein 8.0 (6.4-8.2) g/dL Albumin 3.9 (3.4-5.0) g/dL Meds: Medications Discontinued Medications Generic Name Dose Route Start Last Admin Trade Name Elizabeth PRN Reason Stop Dose Admin Diltiazem HCl 20 mg 03/19/19 08:31 03/19/19 08:43 Diltiazem IVPUSH 03/19/19 08:32 20 mg ONETIME ONE Administration Diltiazem HCl 100 mg/ Sodium 100 mls @ 5 mls/hr 03/19/19 08:45 Chloride IV TITRATE MARGO Protocol 5 MG/HR - Radiology Interpretation Free Text/Narrative:: CXR: No acute abnormality - Re-Assessments/Exams Free Text/Narrative Re-Assessment/Exam: 03/19/19 08:54 The patient was in A-fib and symptomatic with rate of about 110. Raúl Lenz RN reports during the push, about 5mg in, patient converted, rate of 64. Patient now reports he no longer has dyspnea, chest tightness, belching sensation. He reports he no longer feels anxious. He states "I feel good and feel like I could go home." Patient HR now is 68, BP is now 174/95. Repeat EKG done at 0901am rate 59, SR, with very mild ST elevation. This is compared to previous 02/13/19 ekg with very subtle changes of ST elevation. 03/19/19 09:[address] Reis hospitalist at [facility]. He has accepted the patient. No other medication tx at this time per Dr. Reis. 03/19/19 09:45 The patient has agreed now to call his , will use his cell phone. 03/19/19 09:[address] Ramirez at [facility] about this patient. he agrees with EKG interpretation and transfer of this patient. He reports that at this time, since patient is asymptomatic, no heparin, nitro, or meds at this time. He reports transfer for possible stress/cath of this patient. Especially with patient history and presentation. Awaiting transfer ambulance at this time. Departure - Departure Time of Disposition: 09:46 Disposition: DC/Tfer to Acute Hospital 02 Reason for Transfer *Q: Other Condition: Fair Clinical Impression: Hypertension Qualifiers: Hypertension type: essential hypertension Qualified Code(s): I10 - Essential ( primary) hypertension Atrial fibrillation Qualifiers: Atrial fibrillation type: paroxysmal Qualified Code(s): I48.0 - Paroxysmal atrial fibrillation Chest pain Qualifiers: Chest pain type: chest pain due to myocardial ischemia Ischemic chest pain type : other angina pectoris type Qualified Code(s): I20.8 - Other forms of angina pectoris Dyspnea Qualifiers: Dyspnea type: shortness of breath Qualified Code(s): R06.02 - Shortness of breath Referrals: Marla Evans PA [Primary Care Provider] - Forms: ED Department Discharge - Assessment/Plan Plan: PLEASE SEE RN NOTE FOR PFSH. The patient is being transferred to [facility]. The risks and benefits have been explained to the patient. The patient has discussed concern over billing because he is currently paying collections on a bill from here previously. After further conversation, the patient has agreed to the transfer. The risks of the transfer are going agustin into A-fib, cardiac arrest, mvc, . The benefits of the transfer are seeing a steamer tender, higher level of care, ability for stress test, cardiac intervention if needed. The risks of staying in [place] is no steamer tender, no cardiac intervention available, . The benefits of staying in [place] is close to home.
[2019-03-19] MEDS: Diltiazem 25 MG/5 ML SDV IVPUSH ONE (08:43)
[2019-03-19] MEDS ORDERED: Diltiazem 100 MG in Sodium Chloride 0.9% 100 ML IV SCH (08:45)
[2019-03-19 10:15] VITALS: BP 179/84
== END 2019-03-19 10:28 ==
LOC: CC.ED 08:00
DX: I48.0 Paroxysmal atrial fibrillation (principal); I10 Essential (primary) hypertension; I25.2 Old myocardial infarction; E78.00 Pure hypercholesterolemia, unspecified; K21.9 Gastro-esophageal reflux disease without esophagitis; F41.9 Anxiety disorder, unspecified; F32.9 Major depressive disorder, single episode, unspecified; Z85.828 Personal history of other malignant neoplasm of skin; Z79.82 Long term (current) use of aspirin; Z79.899 Other long term (current) drug therapy; Z88.0 Allergy status to penicillin; Z88.5 Allergy status to narcotic agent; Z88.8 Allergy status to other drugs, medicaments and biological substances
CPT/HCPCS: 36415; 71046; 80053; 82550; 83615; 83880; 84484; 85025; 85610; 85730; 93005; 96374; 99285; J3490

== ENCOUNTER 2019-04-22 18:41 | Emergency (ER) | payer BC, MEDICARE ==
[2019-04-22] MEDS ORDERED: Acetaminophen/HYDROcodone 325-5 MG Tab PO ONE (18:42)
[2019-04-22] MEDS ORDERED: Ondansetron 4 MG Tab.DIS PO ONE (18:42)
[2019-04-22] MEDS ORDERED: Sodium Chloride 0.9% 1,000 ML IV ONE (18:46)
[2019-04-22] MEDS ORDERED: Morphine 4 MG/ML Syringe IVPUSH ONE (18:46)
[2019-04-22] MEDS ORDERED: Ondansetron 4 MG/2 ML SDV IVPUSH STA (18:47)
--- NOTE | 2019-04-22 18:49 | EDM.PDOC ---
ED HPI GENERAL MEDICAL PROBLEM - General Chief Complaint: Abdominal Pain Stated Complaint: POSSIBLE KIDNEY STONE Time Seen by Provider: 04/22/19 18:41 Source of Information: Reports: Patient History Limitations: Reports: No Limitations - History of Present Illness INITIAL COMMENTS - FREE TEXT/NARRATIVE: This patient is a 68 year old male that presents to the ER. Patient reports that two days ago he has been feeling right groin pain. Patient reports that the pain has come and gone over the past 2 days. Patient reports yesterday he began having gross hematuria. Patient reports that he was seen in the clinic yesterday, had labs, urine, and ct done. Patient reports he was told he has kidney stones and a urology appointment was made in May. Patient reports that today he has had an increase in pain with nausea and continued blood clots in his urine. Patient reports nausea. Patient reports he has not taken anything for pain. Onset Date: 04/20/19 Duration: Colic Location: Reports: Other (right groin) Quality: Reports: Sharp Severity: Moderate Improves with: Reports: None Worsens with: Reports: None Associated Symptoms: Denies: Confusion, Chest Pain, Cough, cough w sputum, Diaphoresis, Fever/Chills, Headaches, Loss of Appetite, Malaise, Nausea/Vomiting , Rash, Seizure, Shortness of Breath, Syncope, Weakness Right Lower Abdominal Pain Score (Numeric/FACES): 10 - Related Data Allergies Allergy/AdvReac Type Severity Reaction Status Date / Time meperidine [From Demerol] Allergy Cannot Verified 04/22/19 18:43 Remember Penicillins Allergy Airway Verified 04/22/19 18:43 Tightness Home Meds: Home Meds atorvaSTATin Calcium [Atorvastatin Calcium] 80 mg PO DAILY 08/03/16 [History] Pantoprazole Sodium [Protonix] 40 mg PO DAILY 02/13/19 [History] Clopidogrel Bisulfate [Clopidogrel] 75 mg PO DAILY 04/22/19 [History] Sotalol HCl [Sotalol] 80 mg PO DAILY 04/22/19 [History] Past Medical History HEENT History: Reports: Hard of Hearing Cardiovascular History: Reports: High Cholesterol, Hypertension, [place] Other Cardiovascular History: reports that pt had a heart attack in 2010 follow by a "5 way coronary artery bypass." Gastrointestinal History: Reports: GERD, Other (See Below) Other Gastrointestinal History: colitis Genitourinary History: Reports: Renal Calculus Musculoskeletal History: Reports: Arthritis, Fracture, Neck Pain, Chronic, Other (See Below) Other Musculoskeletal History: "I have broken lots of bones. 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." Hematologic History: Reports: Blood Transfusion(s) Oncologic (Cancer) History: Reports: Basal Cell Carcinoma Other Oncologic History: skin CA Dermatologic History: Reports: Other (See Below) Other Dermatologic History: skin CA, basal carcinoma - Past Surgical History HEENT Surgical History: Reports: None Cardiovascular Surgical History: Reports: Coronary Artery Bypass GI Surgical History: Reports: Cholecystectomy, Colonoscopy, Hernia Repair/Other Male Surgical History: Reports: Lithotripsy (ESWL) Neurological Surgical History: Reports: None Musculoskeletal Surgical History: Reports: ORIF Oncologic Surgical History: Reports: None Dermatological Surgical History: Reports: Skin Biopsy Social & Family History - Family History Family Medical History: Noncontributory Cardiac: Reports: [place] Oncologic: Reports: Brain - Caffeine Use Caffeine Use: Reports: Tea ED ROS GENERAL - Review of Systems Review Of Systems: See Below Constitutional: Reports: No Symptoms HEENT: Reports: No Symptoms Respiratory: Reports: No Symptoms Cardiovascular: Reports: No Symptoms Endocrine: Reports: No Symptoms GI/Abdominal: Reports: Nausea. Denies: Abdominal Pain, Constipation, Diarrhea, Vomiting : Reports: Hematuria, Other (right groin pain) Musculoskeletal: Reports: No Symptoms Skin: Reports: No Symptoms Neurological: Reports: No Symptoms Psychiatric: Reports: No Symptoms Hematologic/Lymphatic: Reports: No Symptoms ED EXAM, RENAL/ - Physical Exam Exam: See Below Exam Limited By: No Limitations General Appearance: Alert, WD/WN, No Apparent Distress, Anxious Eye Exam: Bilateral Eye: Normal Inspection, PERRL Ears: Normal External Exam, Normal Canal, Hearing Grossly Normal, Normal TMs Nose: Normal Inspection, Normal Mucosa, No Blood Throat/Mouth: Normal Inspection, Normal Lips, Normal Teeth, Normal Gums, Normal Oropharynx, Normal Voice, No Airway Compromise Head: Atraumatic, Normocephalic Neck: Normal Inspection, Supple, Non-Tender, Full Range of Motion Respiratory/Chest: No Respiratory Distress, Lungs Clear, Normal Breath Sounds, No Accessory Muscle Use Cardiovascular: Normal Peripheral Pulses, Regular Rate, Rhythm, No Edema, No Gallop, No JVD, No Murmur, No Rub GI/Abdominal: Normal Bowel Sounds, Soft, Non-Tender, No Organomegaly, No Distention, No Abnormal Bruit, No Mass, Pelvis Stable (Male) Exam: Other (Right groin tenderness. ) Rectal (Males) Exam: Deferred Back Exam: Normal Inspection, Full Range of Motion. No: CVA Tenderness (L), CVA Tenderness (R) Extremities: Normal Inspection, Normal Range of Motion, Non-Tender, No Pedal Edema, Normal Capillary Refill Neurological: Alert, Oriented, Normal Cognition, Normal Gait, No Motor/Sensory Deficits Psychiatric: Normal Affect, Normal Mood, Anxious Skin Exam: Warm, Dry, Intact, Normal Color Lymphatic: No Adenopathy Course - Vital Signs Last Recorded V/S: Last Vital Signs Temp 99.0 F 04/22/19 19:01 Pulse 60 04/22/19 19:01 Resp 18 04/22/19 19:01 BP 138/80 04/22/19 19:01 Pulse Ox 97 04/22/19 19:01 - Orders/Labs/Meds Orders: Active Orders 24 hr Category Date Time Status Acetaminophen/HYDROcodone [Take Home: Acetaminophen/ Med 04/22/19 20:01 Once HYDROcod, 2 Tab Pack] 3 packet PO ONETIME ONE Ondansetron [Take Home: Ondansetron ODT 4 MG, 2 Tab Med 04/22/19 20:02 Once Pack] 2 packet PO ONETIME ONE Medication Orders Hydrocodone Bitart/Acetaminophen (Take Home: Acetaminophen/Hydrocod, 2 Tab Pack ) 3 packet PO ONETIME ONE Stop: 04/22/19 20:02 Labs: Laboratory Tests 04/22/19 04/22/19 04/22/19 Range/Units 18:44 18:44 18:44 WBC 7.4 (5.0-10.0) 10^3/uL RBC 4.69 (4.50-6.00) 10^6/uL Hgb 14.5 (14.0-18.0) g/dL Hct 41.9 (40.0-54.0) % MCV 89.3 (82.0-94.0) fL MCH 30.9 (27.0-32.0) pg MCHC 34.6 (33.0-38.0) g/dL RDW Coeff of Keith 12.4 (11.0-15.0) % Plt Count 173 (150-400) 10^3/uL Neut % (Auto) 59.4 (35-85) % Lymph % (Auto) 25.0 (10-55) % [place] % (Auto) 9.6 (0-16) % Eos % (Auto) 5.6 H (0-5) % Baso % (Auto) 0.4 (0-3) % Neut # (Auto) 4.38 (1.80-7.00) 10^3/uL Lymph # (Auto) 1.84 (1.00-4.80) 10^3/uL [place] # (Auto) 0.71 (0.00-0.80) 10^3/uL Eos # (Auto) 0.41 (0.00-0.45) 10^3/uL Baso # (Auto) 0.03 10^3/uL Sodium 142 (136-145) mEq/L Potassium 3.9 (3.5-5.0) mEq/L Chloride 104 (98-106) mEq/L Carbon Dioxide 28 (21-32) mmol/L BUN 15 (7-18) mg/dL Creatinine 1.3 (0.7-1.3) mg/dL Est Cr Clr Drug Dosing 50.44 mL/min Estimated GFR (MDRD) 55 L (>=60) mL/min Glucose 108 H (75-99) mg/dL Calcium 9.3 (8.4-10.1) mg/dL Total Bilirubin 0.5 (0.0-1.0) mg/dL AST 17 (15-37) U/L ALT 20 (12-78) U/L Alkaline Phosphatase 101 (46-116) U/L Total Protein 7.1 (6.4-8.2) g/dL Albumin 3.2 L (3.4-5.0) g/dL Urine Color Red (YELLOW) Urine Appearance Cloudy (CLEAR) Urine pH 5.5 (4.5-8.0) Ur Specific [place] 1.020 (1.003-1.020) Urine Protein 100 H (NEGATIVE) mg/dL Urine Glucose (UA) Negative (NEGATIVE) mg/dL Urine Ketones Negative (NEGATIVE) mg/dL Urine Occult Blood Large H (NEGATIVE) Urine Nitrite Negative (NEGATIVE) Urine Bilirubin Negative (NEGATIVE) Urine Urobilinogen 0.2 (0.2-1.0) EU/dL Ur Leukocyte Esterase Negative (NEGATIVE) Urine RBC >100 H (0-5) /HPF Urine WBC Not seen (0-5) /HPF Meds: Medications Generic Name Dose Route Start Last Admin Trade Name Freq PRN Reason Stop Dose Admin Hydrocodone Bitart/Acetaminophen 3 packet 04/22/19 20:01 Take Home: Acetaminophen/Hydrocod, 2 Tab Pack PO 04/22/19 20:02 ONETIME ONE Discontinued Medications Generic Name Dose Route Start Last Admin Trade Name Freq PRN Reason Stop Dose Admin Sodium Chloride 1,000 mls @ 1,000 mls/hr 04/22/19 18:46 04/22/19 18:56 Normal Saline IV 04/22/19 19:45 1,000 mls/hr .BOLUS ONE Administration Morphine Sulfate 4 mg 04/22/19 18:46 Morphine IVPUSH 04/22/19 18:47 ONETIME ONE Ondansetron HCl 4 mg 04/22/19 18:47 Zofran IVPUSH 04/22/19 18:48 NOW STA Tamsulosin HCl 0.4 mg 04/22/19 20:01 Flomax PO 04/22/19 20:02 ONETIME ONE Tamsulosin HCl 0.4 mg 04/22/19 20:01 Flomax PO 04/22/19 20:02 ONETIME ONE - Radiology Interpretation Free Text/Narrative:: CT abd/pelvis with and without contrast: Done yesterday in clinic 04/21/19. "extensive nephrolithiasis. 1cm calculus at the right UPJ with minimal obstructive change. the right ureter distal to the UPJ is not opacified. portions of the left ureter are opacified. the visualized portions appear normal. The bladder is not well visualized. There may be some bladder wall thickening. It would be difficult to exclude a mass on this study. Renal cysts. Cholecystectomy." CT Results Date: 04/21/19 - Re-Assessments/Exams Free Text/Narrative Re-Assessment/Exam: 04/22/19 19:56 After my examination, the patient urinated and reported his pain and nausea has completely resolved. The patient has been in the ER more than an hour after urinating. He has been pain free this entire time. I discussed with the patient he possibly could have passed the stone. However, did also discuss he may not have. After discussion and the patient being pain free, will discharge home. Will prescribe him medications in case he has not passed stone. Educated also that he should return to the ER if the pain returns. He agrees with this plan. Departure - Departure Time of Disposition: 19:58 Disposition: Home, Self-Care 01 Condition: Fair Clinical Impression: Ureteropelvic junction (UPJ) obstruction, right, Nephrolithiasis - Discharge Information *PRESCRIPTION DRUG MONITORING PROGRAM REVIEWED*: No *COPY OF PRESCRIPTION DRUG MONITORING REPORT IN PATIENT MELISSA: No Instructions: Kidney Stones, [id number] Referrals: Marla Evans PA [Primary Care Provider] - Forms: ED Department Discharge Additional Instructions: Followup with your primary care provider Return to the ER for worsening of condition or any emergent concerns or return of pain Increase fluids [place] 5/325mg 1-2 pills every 4-6 hours as needed for pain #6 take home Flomax 0.4mg 1 pill once a day #1 take home: #5 no refill Zofran 4mg 1 pill every 6 hours as needed for nausea #4 take home - My Orders Last 24 Hours: My Active Orders 04/22/19 20:01 Acetaminophen/HYDROcodone [Take Home: Acetaminophen/HYDROcod, 2 Tab Pack] 3 packet PO ONETIME ONE 04/22/19 20:02 Ondansetron [Take Home: Ondansetron ODT 4 MG, 2 Tab Pack] 2 packet PO ONETIME ONE - Assessment/Plan Last 24 Hours: My Active Orders 04/22/19 20:01 Acetaminophen/HYDROcodone [Take Home: Acetaminophen/HYDROcod, 2 Tab Pack] 3 packet PO ONETIME ONE 04/22/19 20:02 Ondansetron [Take Home: Ondansetron ODT 4 MG, 2 Tab Pack] 2 packet PO ONETIME ONE Plan: PLEASE SEE RN NOTE FOR PFSH.
[2019-04-22 19:04] VITALS: BP 138/80
[2019-04-22] MEDS ORDERED: Tamsulosin 0.4 MG Cap.ER PO ONE ×2 (20:01)
[2019-04-22] MEDS ORDERED: Take Home: Acetaminophen/HYDROcodone 325-5 MG, 2 Tab Pack PO ONE (20:01)
[2019-04-22] MEDS ORDERED: Take Home: Ondansetron 4 MG Tab.DIS, 2 Tab Pack PO ONE (20:02)
== END 2019-04-22 20:17 | disposition home or self-care (01) ==
LOC: CC.ED 18:41
DX: N13.5 Crossing vessel and stricture of ureter without hydronephrosis (principal); N20.0 Calculus of kidney; I10 Essential (primary) hypertension; K21.9 Gastro-esophageal reflux disease without esophagitis; I25.2 Old myocardial infarction; Z88.0 Allergy status to penicillin; Z88.8 Allergy status to other drugs, medicaments and biological substances; Z79.899 Other long term (current) drug therapy; Z95.1 Presence of aortocoronary bypass graft; Z90.49 Acquired absence of other specified parts of digestive tract
CPT/HCPCS: 36415; 80053; 81001; 85025; 99283; A9270-GY; J7030

== ENCOUNTER 2019-05-22 19:30 | Emergency (ER) | payer BC, MEDICARE ==
[2019-05-22] MEDS ORDERED: Acetaminophen/HYDROcodone 325-5 MG Tab PO ONE (19:31)
[2019-05-22] MEDS ORDERED: Ketorolac 60 MG/2 ML SDV IM ONE (19:43)
--- NOTE | 2019-05-22 20:05 | EDM.PDOC ---
ED HPI GENERAL MEDICAL PROBLEM - General Chief Complaint: General Stated Complaint: facial pain Time Seen by Provider: 05/22/19 20:04 Source of Information: Reports: Patient History Limitations: Reports: No Limitations - History of Present Illness INITIAL COMMENTS - FREE TEXT/NARRATIVE: Jason is a 68 year old male who presents to the ED with c/o left sided facial pain. He reports he was seen in the clinic Sunday 05/20, day of onset of symptoms, and was diagnosed with sinusitis. He reports he has been taking his antibiotic as prescribed. Reports today his facial pain seemed to be worsening. Reports it is a constant ache with episodes of sharp stabbing pains. Reports it got unbearable this evening, prompting ED visit. He reports he is also nauseated. Points to left cheek when c/o pain. He reports the only thing that makes the pain better is when his mouth is full of cold water. Onset Date: 05/20/19 Duration: Getting Worse Location: Reports: Face (left) Quality: Reports: Ache, Stabbing Severity: Severe Improves with: Reports: Cold Therapy Associated Symptoms: Reports: Loss of Appetite, Nausea/Vomiting. Denies: Confusion, Chest Pain, Cough, cough w sputum, Diaphoresis, Fever/Chills, Headaches, Malaise, Rash, Seizure, Shortness of Breath, Syncope, Weakness Treatments BARK TANNER: Reports: Cold Therapy Left Face/Facial Pain Score (Numeric/FACES): 10 - Related Data Allergies Allergy/AdvReac Type Severity Reaction Status Date / Time meperidine [From Demerol] Allergy Cannot Verified 05/22/19 19:31 Remember Penicillins Allergy Airway Verified 05/22/19 19:31 Tightness Home Meds: Home Meds atorvaSTATin Calcium [Atorvastatin Calcium] 80 mg PO DAILY 08/03/16 [History] Pantoprazole Sodium [Protonix] 40 mg PO DAILY 02/13/19 [History] Clopidogrel Bisulfate [Clopidogrel] 75 mg PO DAILY 04/22/19 [History] Sotalol HCl [Sotalol] 80 mg PO DAILY 04/22/19 [History] Hydrocodone/Acetaminophen [Rainier 5-325 Tablet] 1 - 2 tab PO Q4H PRN #20 tablet 05/22/19 [Rx] cephALEXin [Cephalexin] 500 mg PO TID 05/22/19 [History] predniSONE 40 mg PO DAILY 5 Days #10 tab 05/22/19 [Rx] Past Medical History HEENT History: Reports: Hard of Hearing Cardiovascular History: Reports: High Cholesterol, Hypertension, [place] Other Cardiovascular History: reports that pt had a heart attack in 2010 follow by a "5 way coronary artery bypass." Gastrointestinal History: Reports: GERD, Other (See Below) Other Gastrointestinal History: colitis Genitourinary History: Reports: Renal Calculus Musculoskeletal History: Reports: Arthritis, Fracture, Neck Pain, Chronic, Other (See Below) Other Musculoskeletal History: "I have broken lots of bones. 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." Hematologic History: Reports: Blood Transfusion(s) Oncologic (Cancer) History: Reports: Basal Cell Carcinoma Other Oncologic History: skin CA Dermatologic History: Reports: Other (See Below) Other Dermatologic History: skin CA, basal carcinoma - Past Surgical History HEENT Surgical History: Reports: None Cardiovascular Surgical History: Reports: Coronary Artery Bypass GI Surgical History: Reports: Cholecystectomy, Colonoscopy, Hernia Repair/Other Male Surgical History: Reports: Lithotripsy (ESWL) Neurological Surgical History: Reports: None Musculoskeletal Surgical History: Reports: ORIF Oncologic Surgical History: Reports: None Dermatological Surgical History: Reports: Skin Biopsy Social & Family History - Family History Family Medical History: Noncontributory Cardiac: Reports: [place] Oncologic: Reports: Brain - Tobacco Use Smoking Status *Q: Never Smoker - Caffeine Use Caffeine Use: Reports: Tea - Recreational Drug Use Recreational Drug Use: No ED ROS GENERAL - Review of Systems Review Of Systems: ROS reveals no pertinent complaints other than HPI. ED EXAM, GENERAL - Physical Exam Exam: See Below Exam Limited By: No Limitations General Appearance: Alert, WD/WN, Anxious, Moderate Distress Eye Exam: Bilateral Eye: EOMI, Normal Fundi, Normal Inspection, PERRL Ears: Normal External Exam, Normal Canal, Hearing Grossly Normal, Normal TMs Nose: Nasal Swelling, Nasal Drainage, Clear Rhinorrhea Throat/Mouth: Normal Inspection, Normal Lips, Normal Teeth, Normal Gums, Normal Oropharynx, Normal Voice, No Airway Compromise Head: Atraumatic, Normocephalic, Facial Tenderness (left sided), Sinus Tenderness (left maxillary) Neck: Normal Inspection, Supple, Non-Tender, Full Range of Motion Respiratory/Chest: No Respiratory Distress, Lungs Clear, Normal Breath Sounds, No Accessory Muscle Use, Chest Non-Tender Cardiovascular: Normal Peripheral Pulses, Regular Rate, Rhythm, No Edema, No Gallop, No JVD, No Murmur, No Rub GI/Abdominal: Normal Bowel Sounds, Soft, Non-Tender, No Organomegaly, No Distention, No Abnormal Bruit, No Mass Neurological: Alert, Oriented, CN II-XII Intact, Normal Cognition, Normal Gait, No Motor/Sensory Deficits Psychiatric: Anxious, Tearful Skin Exam: Warm, Dry, Intact, Normal Color, No Rash Lymphatic: No Adenopathy Course - Vital Signs Last Recorded V/S: Last Vital Signs Temp 97.7 F 05/22/19 19:31 Pulse 66 05/22/19 20:42 Resp 16 05/22/19 19:31 BP 178/82 H 05/22/19 20:42 Pulse Ox 99 05/22/19 19:31 - Orders/Labs/Meds Labs: Laboratory Tests 05/22/19 05/22/19 05/22/19 Range/Units 19:42 19:50 19:50 WBC 6.4 (5.0-10.0) 10^3/uL RBC 4.78 (4.50-6.00) 10^6/uL Hgb 14.7 (14.0-18.0) g/dL Hct 42.7 (40.0-54.0) % MCV 89.3 (82.0-94.0) fL MCH 30.8 (27.0-32.0) pg MCHC 34.4 (33.0-38.0) g/dL RDW Coeff of Keith 12.2 (11.0-15.0) % Plt Count 160 (150-400) 10^3/uL Neut % (Auto) 67.0 (35-85) % Lymph % (Auto) 22.0 (10-55) % [place] % (Auto) 7.7 (0-16) % Eos % (Auto) 3.0 (0-5) % Baso % (Auto) 0.3 (0-3) % Neut # (Auto) 4.29 (1.80-7.00) 10^3/uL Lymph # (Auto) 1.41 (1.00-4.80) 10^3/uL [place] # (Auto) 0.49 (0.00-0.80) 10^3/uL Eos # (Auto) 0.19 (0.00-0.45) 10^3/uL Baso # (Auto) 0.02 10^3/uL ESR 14 (0-15) mm/hr Sodium 143 (136-145) mEq/L Potassium 4.1 (3.5-5.0) mEq/L Chloride 104 (98-106) mEq/L Carbon Dioxide 34 H (21-32) mmol/L BUN 22 H (7-18) mg/dL Creatinine 1.6 H (0.7-1.3) mg/dL Est Cr Clr Drug Dosing 43.94 mL/min Estimated GFR (MDRD) 43 L (>=60) mL/min Glucose 112 H (75-99) mg/dL Calcium 9.1 (8.4-10.1) mg/dL C-Reactive Protein 0.5 (0.2-0.8) mg/dL Urine Color Light yellow (YELLOW) Urine Appearance Clear (CLEAR) Urine pH 7.0 (4.5-8.0) Ur Specific [place] 1.015 (1.003-1.020) Urine Protein Negative (NEGATIVE) mg/dL Urine Glucose (UA) Negative (NEGATIVE) mg/dL Urine Ketones Negative (NEGATIVE) mg/dL Urine Occult Blood Negative (NEGATIVE) Urine Nitrite Negative (NEGATIVE) Urine Bilirubin Negative (NEGATIVE) Urine Urobilinogen 0.2 (0.2-1.0) EU/dL Ur Leukocyte Esterase Negative (NEGATIVE) Urine RBC 0-5 (0-5) /HPF Urine WBC Not seen (0-5) /HPF Meds: Medications Discontinued Medications Generic Name Dose Route Start Last Admin Trade Name Freq PRN Reason Stop Dose Admin Hydrocodone Bitart/Acetaminophen 3 packet 05/22/19 20:30 05/22/19 20:37 Take Home: Acetaminophen/Hydrocod, 2 Tab Pack PO 05/22/19 20:31 3 packet ONETIME ONE Administration Ketorolac Tromethamine 60 mg 05/22/19 19:43 05/22/19 19:53 Toradol IM 05/22/19 19:44 60 mg ONETIME ONE Administration Methylprednisolone Acetate 80 mg 05/22/19 20:27 05/22/19 20:34 Depo-Medrol IM 05/22/19 20:28 80 mg ONETIME ONE Administration Ondansetron HCl 4 mg 05/22/19 20:09 05/22/19 20:11 Zofran Odt PO 05/22/19 20:10 4 mg ONETIME ONE Administration Ondansetron HCl Confirm 05/22/19 20:17 05/22/19 20:14 Zofran Odt Administered 05/22/19 20:18 Not Given Dose 4 mg .ROUTE .STK-MED ONE Departure - Departure Time of Disposition: 20:34 Disposition: Home, Self-Care 01 Condition: Fair Clinical Impression: Left facial pain Sinusitis, acute Qualifiers: Sinusitis location: maxillary Recurrence: not specified as recurrent Qualified Code(s): J01.00 - Acute maxillary sinusitis, unspecified - Discharge Information *PRESCRIPTION DRUG MONITORING PROGRAM REVIEWED*: No (unable to access as sytem down at this time) *COPY OF PRESCRIPTION DRUG MONITORING REPORT IN PATIENT MELISSA: No Prescriptions: Hydrocodone/Acetaminophen [Rainier 5-325 Tablet] 1 - 2 tab PO Q4H PRN #20 tablet PRN Reason: Pain predniSONE 40 mg PO DAILY 5 Days #10 tab Forms: ED Department Discharge Additional Instructions: - Ice affected area - Start Prednisone 40 mg daily x 5 days tomorrow. Can be picked up from pharmacy. - Continue antibiotics as previously prescribed - Continue Zofran as needed for nausea - Rainier 1-2 tablets every 4-6 hours as needed for pain. Additional can be picked up at pharmacy. May want to start daily stool softener while taking pain medications. - May also use Tylenol 1000 mg and ibuprofen 800 mg as needed for pain - Rest and take it easy - Note provided to excuse from work tomorrow 05/23/2019 - Follow up with Antoinette for recheck this week, sooner rather than later if symptoms do not seem to be improving. Need BP recheck.
[2019-05-22] MEDS ORDERED: Ondansetron 4 MG Tab.DIS PO ONE (20:09)
[2019-05-22] MEDS ORDERED: Ondansetron 4 MG Tab.DIS ONE (20:17)
[2019-05-22] MEDS ORDERED: methylPREDNISolone Acetate 80 MG/ML SDV IM ONE (20:27)
[2019-05-22] MEDS ORDERED: Take Home: Acetaminophen/HYDROcodone 325-5 MG, 2 Tab Pack PO ONE (20:30)
[2019-05-22 20:55] VITALS: BP 178/82; PULSE 66
== END 2019-05-22 20:54 | disposition home or self-care (01) ==
LOC: CC.ED 19:30
DX: J01.00 Acute maxillary sinusitis, unspecified (principal); E78.00 Pure hypercholesterolemia, unspecified; I10 Essential (primary) hypertension; I25.2 Old myocardial infarction; K21.9 Gastro-esophageal reflux disease without esophagitis; Z88.0 Allergy status to penicillin; Z88.5 Allergy status to narcotic agent; Z79.899 Other long term (current) drug therapy; Z87.442 Personal history of urinary calculi; Z85.828 Personal history of other malignant neoplasm of skin
CPT/HCPCS: 36415; 80048; 81001; 85025; 85651; 86140; 96372; 99283; A9270; J1040; J1885

== ENCOUNTER 2019-12-25 18:58 | Emergency (ER) | payer BC, MEDICARE ==
[2019-12-25 19:06] VITALS: BP 147/83; PULSE 75
== END 2019-12-25 19:17 | disposition left against medical advice (07) ==
LOC: CC.ED 18:58
DX: Z53.21 Procedure and treatment not carried out due to patient leaving prior to being seen by health care provider (principal)

== ENCOUNTER 2020-02-01 15:15 | Emergency (ER) | payer BC, MEDICARE ==
--- NOTE | 2020-02-01 15:30 | EDM.PDOC ---
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 He continues to feel weak. States that everything went black and felt like he was very weak. Denies any chest pain or shortness of breathe. He did not completely black out. He did check his BP after this and it was 150/94 and his pulse was regular. He arrived per private car. He states that he feels weak. After lying down he states that he feels better. No nausea noted. Onset: Sudden Location: Reports: Generalized Worsens with: Reports: Rest Associated Symptoms: Reports: Weakness. Denies: Confusion, Chest Pain, Cough, Diaphoresis, Fever/Chills, Nausea/Vomiting, Shortness of Breath - Related Data Allergies Allergy/AdvReac Type Severity Reaction Status Date / Time meperidine [From Demerol] Allergy Cannot Verified 02/01/20 15:50 Remember Penicillins Allergy Airway Verified 02/01/20 15:50 Tightness Home Meds: Home Meds atorvaSTATin Calcium [Atorvastatin Calcium] 80 mg PO DAILY 08/03/16 [History] Clopidogrel Bisulfate [Clopidogrel] 75 mg PO DAILY 04/22/19 [History] Sotalol HCl [Sotalol] 80 mg PO DAILY 04/22/19 [History] Aspirin 325 mg PO DAILY PRN 02/01/20 [History] Calcium Carbonate [Calcium] 500 mg PO DAILY 02/01/20 [History] Cholecalciferol (Vitamin D3) [Vitamin D3] 5,000 unit PO DAILY 02/01/20 [History] [place]-3/DHA/Epa/Fish Oil [Fish Oil 1,000 mg Softgel] 1 cap PO DAILY 02/01/20 [ History] Past Medical History HEENT History: Reports: Hard of Hearing Cardiovascular History: Reports: High Cholesterol, Hypertension, [place] Other Cardiovascular History: reports that pt had a heart attack in 2010 follow by a "5 way coronary artery bypass." Gastrointestinal History: Reports: GERD, Other (See Below) Other Gastrointestinal History: colitis Genitourinary History: Reports: Renal Calculus Musculoskeletal History: Reports: Arthritis, Fracture, Neck Pain, Chronic, Other (See Below) Other Musculoskeletal History: "I have broken lots of bones. 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." Hematologic History: Reports: Blood Transfusion(s) Oncologic (Cancer) History: Reports: Basal Cell Carcinoma Other Oncologic History: skin CA Dermatologic History: Reports: Other (See Below) Other Dermatologic History: skin CA, basal carcinoma - Past Surgical History HEENT Surgical History: Reports: None Cardiovascular Surgical History: Reports: Coronary Artery Bypass GI Surgical History: Reports: Cholecystectomy, Colonoscopy, Hernia Repair/Other Male Surgical History: Reports: Lithotripsy (ESWL) Neurological Surgical History: Reports: None Musculoskeletal Surgical History: Reports: ORIF Oncologic Surgical History: Reports: None Dermatological Surgical History: Reports: Skin Biopsy Social & Family History - Family History Family Medical History: Noncontributory Cardiac: Reports: [place] Oncologic: Reports: Brain - Caffeine Use Caffeine Use: Reports: Tea - Living Situation & Occupation Living situation: Reports: , with Family Occupation: Employed ED ROS GENERAL - Review of Systems Review Of Systems: See Below Constitutional: Reports: Weakness. Denies: Fever, Chills, Diaphoresis HEENT: Reports: No Symptoms Respiratory: Reports: No Symptoms Cardiovascular: Reports: No Symptoms GI/Abdominal: Reports: No Symptoms Musculoskeletal: Reports: No Symptoms Skin: Reports: No Symptoms Neurological: Reports: Dizziness, Tingling. Denies: Confusion, Headache, Numbness Psychiatric: Reports: Anxiety ED EXAM, DIZZINESS - Physical Exam Exam: See Below Exam Limited By: No Limitations General Appearance: Alert, WD/WN, Mild Distress Ears: Normal External Exam Throat/Mouth: Normal Inspection, Normal Oropharynx Head Exam: Atraumatic, Normocephalic Vertigo: No: reproducible Neck: Normal Inspection, Supple, Non-Tender Respiratory/Chest: No Respiratory Distress, Lungs Clear, Normal Breath Sounds Cardiovascular: Regular Rate, Rhythm, No Edema GI/Abdominal: Normal Bowel Sounds, Soft, Non-Tender Neurological: Alert, Oriented x 3 Back Exam: Normal Inspection Extremities: Normal Inspection, No Pedal Edema Psychiatric: Tearful Skin Exam: Warm, Dry, Intact Course - Vital Signs Last Recorded V/S: Last Vital Signs Temp 99.1 F 02/01/20 15:43 Pulse 83 02/01/20 15:43 Resp 16 02/01/20 15:43 BP 169/100 H 02/01/20 15:43 Pulse Ox 100 02/01/20 15:43 - Orders/Labs/Meds Orders: Active Orders 24 hr Category Date Time Status Chest 2V [CR] Stat Exams 02/01/20 15:20 Taken Labs: Laboratory Tests 02/01/20 02/01/20 02/01/20 Range/Units 15:25 15:25 15:25 WBC 7.7 (5.0-10.0) 10^3/uL RBC 4.45 L (4.50-6.00) 10^6/uL Hgb 13.7 L (14.0-18.0) g/dL Hct 39.7 L (40.0-54.0) % MCV 89.2 (82.0-94.0) fL MCH 30.8 (27.0-32.0) pg MCHC 34.5 (33.0-38.0) g/dL RDW Coeff of Keith 12.4 (11.0-15.0) % Plt Count 175 (150-400) 10^3/uL Neut % (Auto) 64.7 (35-85) % Lymph % (Auto) 24.3 (10-55) % [place] % (Auto) 8.0 (0-16) % Eos % (Auto) 2.7 (0-5) % Baso % (Auto) 0.3 (0-3) % Neut # (Auto) 5.00 (1.80-7.00) 10^3/uL Lymph # (Auto) 1.88 (1.00-4.80) 10^3/uL [place] # (Auto) 0.62 (0.00-0.80) 10^3/uL Eos # (Auto) 0.21 (0.00-0.45) 10^3/uL Baso # (Auto) 0.02 10^3/uL PT 10.4 (9.7-12.3) SEC INR 1.03 (0.92-1.18) APTT 24.7 (23.2-32.3) SEC Sodium 137 (136-145) mEq/L Potassium 4.0 (3.5-5.0) mEq/L Chloride 100 (98-106) mEq/L Carbon Dioxide 28 (21-32) mmol/L BUN 29 H (7-18) mg/dL Creatinine 1.5 H (0.7-1.3) mg/dL Est Cr Clr Drug Dosing TNP Estimated GFR (MDRD) 47 L (>=60) mL/min Glucose 121 H (75-99) mg/dL Calcium 9.2 (8.4-10.1) mg/dL Total Bilirubin 0.3 (0.0-1.0) mg/dL AST 16 (15-37) U/L ALT 21 (12-78) U/L Alkaline Phosphatase 70 (46-116) U/L Lactate Dehydrogenase 154 (100-190) U/L Creatine Kinase 149 (35-232) U/L Troponin I < 0.017 (0.00-0.06) ng/mL Total Protein 7.2 (6.4-8.2) g/dL Albumin 3.5 (3.4-5.0) g/dL Lipase 109 (73-393) U/L Urine Color (YELLOW) Urine Appearance (CLEAR) Urine pH (4.5-8.0) Ur Specific [place] (1.003-1.020) Urine Protein (NEGATIVE) mg/dL Urine Glucose (UA) (NEGATIVE) mg/dL Urine Ketones (NEGATIVE) mg/dL Urine Occult Blood (NEGATIVE) Urine Nitrite (NEGATIVE) Urine Bilirubin (NEGATIVE) Urine Urobilinogen (0.2-1.0) EU/dL Ur Leukocyte Esterase (NEGATIVE) Urine RBC (0-5) /HPF Urine WBC (0-5) /HPF Ur Epithelial Cells (NOT SEEN) /HPF Urine Mucus (NOT SEEN) /HPF 02/01/20 Range/Units 16:09 WBC (5.0-10.0) 10^3/uL RBC (4.50-6.00) 10^6/uL Hgb (14.0-18.0) g/dL Hct (40.0-54.0) % MCV (82.0-94.0) fL MCH (27.0-32.0) pg MCHC (33.0-38.0) g/dL RDW Coeff of [place] (11.0-15.0) % Plt Count (150-400) 10^3/uL Neut % (Auto) (35-85) % Lymph % (Auto) (10-55) % [place] % (Auto) (0-16) % Eos % (Auto) (0-5) % Baso % (Auto) (0-3) % Neut # (Auto) (1.80-7.00) 10^3/uL Lymph # (Auto) (1.00-4.80) 10^3/uL [place] # (Auto) (0.00-0.80) 10^3/uL Eos # (Auto) (0.00-0.45) 10^3/uL Baso # (Auto) 10^3/uL PT (9.7-12.3) SEC INR (0.92-1.18) APTT (23.2-32.3) SEC Sodium (136-145) mEq/L Potassium (3.5-5.0) mEq/L Chloride (98-106) mEq/L Carbon Dioxide (21-32) mmol/L BUN (7-18) mg/dL Creatinine (0.7-1.3) mg/dL Est Cr Clr Drug Dosing Estimated GFR (MDRD) (>=60) mL/min Glucose (75-99) mg/dL Calcium (8.4-10.1) mg/dL Total Bilirubin (0.0-1.0) mg/dL AST (15-37) U/L ALT (12-78) U/L Alkaline Phosphatase (46-116) U/L Lactate Dehydrogenase (100-190) U/L Creatine Kinase (35-232) U/L Troponin I (0.00-0.06) ng/mL Total Protein (6.4-8.2) g/dL Albumin (3.4-5.0) g/dL Lipase (73-393) U/L Urine Color Yellow (YELLOW) Urine Appearance Clear (CLEAR) Urine pH 6.5 (4.5-8.0) Ur Specific [place] 1.020 (1.003-1.020) Urine Protein Negative (NEGATIVE) mg/dL Urine Glucose (UA) Negative (NEGATIVE) mg/dL Urine Ketones Negative (NEGATIVE) mg/dL Urine Occult Blood Trace-intact H (NEGATIVE) Urine Nitrite Negative (NEGATIVE) Urine Bilirubin Negative (NEGATIVE) Urine Urobilinogen 0.2 (0.2-1.0) EU/dL Ur Leukocyte Esterase Negative (NEGATIVE) Urine RBC 0-5 (0-5) /HPF Urine WBC 0-5 (0-5) /HPF Ur Epithelial Cells Occasional H (NOT SEEN) /HPF Urine Mucus Moderate H (NOT SEEN) /HPF - Re-Assessments/Exams Free Text/Narrative Re-Assessment/Exam: 02/01/20 15:54 Discussed lab results with pt. All are normal as well as EKG and CXR. Will watch pt as he gets up and moves around. Currently he feels back to baseline. Departure - Departure Time of Disposition: 15:55 Disposition: Home, Self-Care 01 Condition: Good Clinical Impression: Near syncope, Anxiety - Discharge Information *PRESCRIPTION DRUG MONITORING PROGRAM REVIEWED*: Not Applicable *COPY OF PRESCRIPTION DRUG MONITORING REPORT IN PATIENT MELISSA: Not Applicable Instructions: Near-Syncope, Near-Syncope, [id number] Referrals: Natalio Hilton MD [Primary Care Provider] - Forms: ED Department Discharge Additional Instructions: Follow with primary provider if not feeling well. continue on all meds as currently ordered. Sepsis Event Note - Focused Exam Date Exam was Performed: 02/02/20 Time Exam was Performed: 14:26 - Problem List & Annotations (1) Near syncope SNOMED Code(s): 476330736 Code(s): R55 - SYNCOPE AND COLLAPSE Status: Acute Priority: High (2) Anxiety SNOMED Code(s): 58539038 Code(s): F41.9 - ANXIETY DISORDER, UNSPECIFIED Status: Chronic Priority: High - Problem List Review Problem List Initiated/Reviewed/Updated: Yes - My Orders Last 24 Hours: My Active Orders 02/01/20 15:20 Chest 2V [CR] Stat - Assessment/Plan Last 24 Hours: My Active Orders 02/01/20 15:20 Chest 2V [CR] Stat
[2020-02-01 15:47] LABS: CHLORIDE,CL 100 mEq/L (98-106); SODIUM,NA 137 mEq/L (136-145)
[2020-02-01 15:49] VITALS: BP 169/100; PULSE 83
[2020-02-01 15:49] LABS: PTT,PARTIAL THROMBOPLSTIN TIME 24.7 SEC (23.2-32.3)
== END 2020-02-01 16:29 | disposition home or self-care (01) ==
LOC: CC.ED 15:15
DX: R55 Syncope and collapse (principal); F41.9 Anxiety disorder, unspecified; I10 Essential (primary) hypertension; E78.00 Pure hypercholesterolemia, unspecified; I25.2 Old myocardial infarction; Z88.0 Allergy status to penicillin; Z79.02 Long term (current) use of antithrombotics/antiplatelets; Z79.82 Long term (current) use of aspirin; Z79.899 Other long term (current) drug therapy; Z88.5 Allergy status to narcotic agent
CPT/HCPCS: 36415; 71046; 80053; 81001; 82550; 83615; 83690; 84484; 85025; 85610; 85730; 93005; 99284-25

== ENCOUNTER 2020-02-27 01:42 | Emergency (ER) | payer BC, MEDICARE ==
[2020-02-27] MEDS ORDERED: Acetaminophen/HYDROcodone 325-5 MG Tab PO ONE (01:43)
[2020-02-27] MEDS ORDERED: Lactated Ringers 1,000 ML IV ONE (01:51)
[2020-02-27] MEDS ORDERED: Ketorolac 30 MG/ML SDV IVPUSH ONE (01:51)
--- NOTE | 2020-02-27 02:12 | EDM.PDOC ---
ED HPI GENERAL MEDICAL PROBLEM - General Chief Complaint: Flank Pain Stated Complaint: kidney stone Time Seen by Provider: 02/27/20 02:12 Source of Information: Reports: Patient History Limitations: Reports: No Limitations - History of Present Illness INITIAL COMMENTS - FREE TEXT/NARRATIVE: Jason is a 69 yo male who presents to the ED with c/o right flank pain. REports sudden onset at 0100 this morning. Has known history of extensive kidney stones. Did see urologist for this in the past but did not follow through with recommended surgery to remove stones. Describes pain as sharp. No other symptoms. Denies any N/V/D, hematuria, dysuria, frequency, urgency. Onset: Today, Sudden Onset Date: 02/27/20 Onset Time: 01:00 Duration: Constant Location: Reports: Other (right flank) Quality: Reports: Sharp Severity: Severe Improves with: Reports: None Worsens with: Reports: None Associated Symptoms: Reports: No Other Symptoms Right Flank Pain Score (Numeric/FACES): 10 - Related Data Allergies Allergy/AdvReac Type Severity Reaction Status Date / Time meperidine [From Demerol] Allergy Cannot Verified 02/27/20 01:44 Remember Penicillins Allergy Airway Verified 02/27/20 01:44 Tightness Home Meds: Home Meds atorvaSTATin Calcium [Atorvastatin Calcium] 80 mg PO DAILY 08/03/16 [History] Clopidogrel Bisulfate [Clopidogrel] 75 mg PO DAILY 04/22/19 [History] Sotalol HCl [Sotalol] 80 mg PO DAILY 04/22/19 [History] Aspirin 325 mg PO DAILY PRN 02/01/20 [History] Calcium Carbonate [Calcium] 500 mg PO DAILY 02/01/20 [History] Cholecalciferol (Vitamin D3) [Vitamin D3] 5,000 unit PO DAILY 02/01/20 [History] [place]-3/DHA/Epa/Fish Oil [Fish Oil 1,000 mg Softgel] 1 cap PO DAILY 02/01/20 [ History] Ketorolac [Toradol] 10 mg PO Q6H PRN #20 tab 02/27/20 [Rx] Ondansetron [Zofran ODT] 4 mg PO Q6H PRN #20 tab.dis 02/27/20 [Rx] Past Medical History HEENT History: Reports: Hard of Hearing Cardiovascular History: Reports: High Cholesterol, Hypertension, [place] Other Cardiovascular History: reports that pt had a heart attack in 2011 follow by a "5 way coronary artery bypass." Respiratory History: Reports: Pneumonia, Recurrent Gastrointestinal History: Reports: GERD, Other (See Below) Other Gastrointestinal History: colitis Genitourinary History: Reports: Renal Calculus Musculoskeletal History: Reports: Arthritis, Fracture, Neck Pain, Chronic, Other (See Below) Other Musculoskeletal History: "I have broken lots of bones. 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." Hematologic History: Reports: Blood Transfusion(s) Oncologic (Cancer) History: Reports: Basal Cell Carcinoma Other Oncologic History: skin CA Dermatologic History: Reports: Other (See Below) Other Dermatologic History: skin CA, basal carcinoma - Past Surgical History HEENT Surgical History: Reports: None Cardiovascular Surgical History: Reports: Coronary Artery Bypass GI Surgical History: Reports: Cholecystectomy, Colonoscopy, Hernia Repair/Other Male Surgical History: Reports: Lithotripsy (ESWL) Neurological Surgical History: Reports: None Musculoskeletal Surgical History: Reports: ORIF Oncologic Surgical History: Reports: None Dermatological Surgical History: Reports: Skin Biopsy Social & Family History - Family History Family Medical History: Noncontributory Cardiac: Reports: [place] Oncologic: Reports: Brain - Caffeine Use Caffeine Use: Reports: Tea - Living Situation & Occupation Living situation: Reports: , with Family Occupation: Employed ED ROS GENERAL - Review of Systems Review Of Systems: Comprehensive ROS is negative, except as noted in HPI. ED EXAM, RENAL/ - Physical Exam Exam: See Below Exam Limited By: No Limitations General Appearance: Alert, WD/WN, No Apparent Distress Head: Atraumatic, Normocephalic Neck: Normal Inspection, Supple, Non-Tender, Full Range of Motion Respiratory/Chest: No Respiratory Distress, Lungs Clear, Normal Breath Sounds, No Accessory Muscle Use, Chest Non-Tender Cardiovascular: Normal Peripheral Pulses, Regular Rate, Rhythm, No Edema, No Gallop, No JVD, No Murmur, No Rub GI/Abdominal: Normal Bowel Sounds, Soft, Non-Tender, No Distention Back Exam: Normal Inspection, Full Range of Motion, CVA Tenderness (R) Extremities: Normal Inspection, Normal Range of Motion, Non-Tender, Normal Capillary Refill, No Pedal Edema Neurological: Alert, Oriented, CN II-XII Intact, Normal Cognition, Normal Gait, Normal Reflexes, No Motor/Sensory Deficits Psychiatric: Anxious Skin Exam: Warm, Dry, Intact, Normal Color, No Rash Course - Vital Signs Last Recorded V/S: Last Vital Signs Temp 98.2 F 02/27/20 01:48 Pulse 50 L 02/27/20 02:30 Resp 18 02/27/20 02:30 BP 153/83 H 02/27/20 02:30 Pulse Ox 97 02/27/20 02:30 - Orders/Labs/Meds Labs: Laboratory Tests 02/27/20 02/27/20 02/27/20 Range/Units 02:00 02:00 02:13 WBC 7.5 (5.0-10.0) 10^3/uL RBC 4.71 (4.50-6.00) 10^6/uL Hgb 14.5 (14.0-18.0) g/dL Hct 42.0 (40.0-54.0) % MCV 89.2 (82.0-94.0) fL MCH 30.8 (27.0-32.0) pg MCHC 34.5 (33.0-38.0) g/dL RDW Coeff of Keith 12.7 (11.0-15.0) % Plt Count 191 (150-400) 10^3/uL Neut % (Auto) 48.1 (35-85) % Lymph % (Auto) 38.5 (10-55) % [place] % (Auto) 8.5 (0-16) % Eos % (Auto) 4.4 (0-5) % Baso % (Auto) 0.5 (0-3) % Neut # (Auto) 3.60 (1.80-7.00) 10^3/uL Lymph # (Auto) 2.89 (1.00-4.80) 10^3/uL [place] # (Auto) 0.64 (0.00-0.80) 10^3/uL Eos # (Auto) 0.33 (0.00-0.45) 10^3/uL Baso # (Auto) 0.04 10^3/uL Sodium 141 (136-145) mEq/L Potassium 3.9 (3.5-5.0) mEq/L Chloride 102 (98-106) mEq/L Carbon Dioxide 30 (21-32) mmol/L BUN 26 H (7-18) mg/dL Creatinine 1.4 H (0.7-1.3) mg/dL Est Cr Clr Drug Dosing 49.54 mL/min Estimated GFR (MDRD) 51 L (>=60) mL/min Glucose 115 H (75-99) mg/dL Calcium 9.7 (8.4-10.1) mg/dL Total Bilirubin 0.3 (0.0-1.0) mg/dL AST 22 (15-37) U/L ALT 22 (12-78) U/L Alkaline Phosphatase 86 (46-116) U/L C-Reactive Protein 0.7 (0.2-0.8) mg/dL Total Protein 7.4 (6.4-8.2) g/dL Albumin 3.6 (3.4-5.0) g/dL Urine Color Light yellow (YELLOW) Urine Appearance Slightly cloudy (CLEAR) Urine pH 8.5 H (4.5-8.0) Ur Specific [place] 1.020 (1.003-1.020) Urine Protein Negative (NEGATIVE) mg/dL Urine Glucose (UA) Negative (NEGATIVE) mg/dL Urine Ketones Negative (NEGATIVE) mg/dL Urine Occult Blood Small H (NEGATIVE) Urine Nitrite Negative (NEGATIVE) Urine Bilirubin Negative (NEGATIVE) Urine Urobilinogen 0.2 (0.2-1.0) EU/dL Ur Leukocyte Esterase Negative (NEGATIVE) Urine RBC 10-20 H (0-5) /HPF Urine WBC Not seen (0-5) /HPF Amorphous Sediment Moderate H (NOT SEEN) /HPF Meds: Medications Discontinued Medications Generic Name Dose Route Start Last Admin Trade Name Freq PRN Reason Stop Dose Admin Hydrocodone Bitart/Acetaminophen 2 packet 02/27/20 02:29 02/27/20 02:40 Take Home: Acetaminophen/Hydrocod, 2 Tab Pack PO 02/27/20 02:30 2 packet ONETIME ONE Administration Lactated Ringer's 1,000 mls @ 999 mls/hr 02/27/20 01:51 02/27/20 02:10 Ringers, Lactated IV 02/27/20 02:51 999 mls/hr .BOLUS ONE Administration Ketorolac Tromethamine 30 mg 02/27/20 01:51 02/27/20 02:10 Toradol IVPUSH 02/27/20 01:52 30 mg ONETIME ONE Administration Departure - Departure Time of Disposition: 02:50 Disposition: Home, Self-Care 01 Condition: Good Clinical Impression: Right ureteral stone, Ureteric colic - Discharge Information *PRESCRIPTION DRUG MONITORING PROGRAM REVIEWED*: Yes *COPY OF PRESCRIPTION DRUG MONITORING REPORT IN PATIENT MELISSA: Yes Prescriptions: Ketorolac [Toradol] 10 mg PO Q6H PRN #20 tab PRN Reason: Pain Ondansetron [Zofran ODT] 4 mg PO Q6H PRN #20 tab.dis PRN Reason: Nausea Instructions: Kidney Stones, [id number] Forms: ED Department Discharge Additional Instructions: - Toradol 1 tablet every 6 hours as needed. May alternate with 1 tablet [place] every 8 hours as needed. - Zofran 1 tablet every 6 hours as needed for nausea - Push fluids - Needs to follow up with urology as patient has known 1 cm stone at right UPJ. Discussed that this large of stone will not pass on its own. - Schedule follow up visit with Dr. Willie PATRICK - Follow up with PCP for recheck - Return to ED for emergent needs Sepsis Event Note - Evaluation Sepsis Screening Result: No Definite Risk - Focused Exam Vital Signs: Vital Signs Temp Pulse Resp BP Pulse Ox 02/27/20 02:30 50 L 18 153/83 H 97 02/27/20 01:48 98.2 F 70 20 188/109 H 98 Date Exam was Performed: 02/27/20 Time Exam was Performed: 08:09 - Assessment/Plan Plan: Patient presents to ED with c/o right flank pain. Has known history of extensive nephrolithiasis, with 1 cm stone at R UPJ last year on both CT and follow up [facility]. Was advised to have lithotripsy but never followed through due to cost per patients report. Dr. Tapia's noted reviewed. Patient was given 30 mg Toradol and 1 L LR. Did report improvement in pain with Toradol. Labs stable except RBCs noted in blood. Creatinine stable at baseline, 1.4. WBC stable. UA negative for infection. Discussed with patient that we will treat symptomatically, but ultimately he needs to follow up with urology or will continue to have these issues. Advised patient that is he develops worsening of pain, fever, chills, N/V, or dysuria, he needs to follow up for reevaluation. He verbalized understanding and was agreeable with plan. Patient discharged from facility in satisfactory condition.
[2020-02-27] MEDS ORDERED: Take Home: Acetaminophen/HYDROcodone 325-5 MG, 2 Tab Pack PO ONE (02:29)
[2020-02-27 02:33] VITALS: BP 153/83; PULSE 50
== END 2020-02-27 03:12 | disposition home or self-care (01) ==
LOC: CC.ED 01:42
DX: N20.1 Calculus of ureter (principal); E78.00 Pure hypercholesterolemia, unspecified; I10 Essential (primary) hypertension; I25.2 Old myocardial infarction; Z88.5 Allergy status to narcotic agent; Z88.0 Allergy status to penicillin; Z79.02 Long term (current) use of antithrombotics/antiplatelets; Z79.82 Long term (current) use of aspirin; Z79.899 Other long term (current) drug therapy
CPT/HCPCS: 36415; 80053; 81001; 85025; 86140; 96361; 96374; 99284; A9270; J1885; J7120

== ENCOUNTER 2020-12-28 14:00 | Emergency (ER) | payer BC, MEDICARE ==
[2020-12-28] MEDS ORDERED: Aspirin 81 MG Tab.Chew PO ONE (14:18)
--- NOTE | 2020-12-28 14:35 | EDM.PDOC ---
ED HPI GENERAL MEDICAL PROBLEM - General Chief Complaint: General Stated Complaint: "heart skipping beats" Time Seen by Provider: 12/28/20 14:10 Source of Information: Reports: Patient - History of Present Illness INITIAL COMMENTS - FREE TEXT/NARRATIVE: This patient is a 70 year old male that presents to the ER. Patient reports that he was at work and went on break. Patient reports about 1:20pm he felt like he had to belch, but couldnt. Patient reports at that time, he took his pulse and it felt like it was skipping beats. He reports the skipping beats was while taking his radial pulse at wrist. Patient reports that he has had this before and it was a-fib, but usually resolved when he comes to the ER. Patient reports that as he arrived here to the ER, it completely resolved. He reports he took an ASA prior to coming. He reports that he wouldnt have come, but his employer made him. Patient denies ray, dizziness, n, v, d, f, shortness of breath, abd pain, back pain. Patient reports his irregular pulse and belching sensation is resolved. Onset: Today Onset Date: 12/28/20 Onset Time: 13:20 Duration: Minutes: (50), Resolved Prior to Arrival Location: Reports: Chest, Other Severity: Mild Improves with: Reports: None Worsens with: Reports: None Associated Symptoms: Reports: Chest Pain. Denies: Confusion, Cough, cough w sputum, Diaphoresis, Fever/Chills, Headaches, Loss of Appetite, Malaise, Nausea/Vomiting, Rash, Seizure, Shortness of Breath, Syncope, Weakness - Related Data Allergies Allergy/AdvReac Type Severity Reaction Status Date / Time meperidine [From Demerol] Allergy Cannot Verified 12/28/20 14:30 Remember Penicillins Allergy Airway Verified 12/28/20 14:30 Tightness Home Meds: Home Meds Aspirin 325 mg PO DAILY PRN 02/01/20 [History] Calcium Carbonate [Calcium] 500 mg PO DAILY 02/01/20 [History] Cholecalciferol (Vitamin D3) [Vitamin D3] 5,000 unit PO DAILY 02/01/20 [History] [place]-3/DHA/Epa/Fish Oil [Fish Oil 1,000 mg Softgel] 2 cap PO DAILY 02/01/20 [History] Ketorolac [Toradol] 10 mg PO Q6H PRN #20 tab 02/27/20 [Rx] Past Medical History HEENT History: Reports: Hard of Hearing Cardiovascular History: Reports: High Cholesterol, Hypertension, [place] Other Cardiovascular History: reports that pt had a heart attack in 2010 follow by a "5 way coronary artery bypass." Respiratory History: Reports: Pneumonia, Recurrent Gastrointestinal History: Reports: GERD, Other (See Below) Other Gastrointestinal History: colitis Genitourinary History: Reports: Renal Calculus Musculoskeletal History: Reports: Arthritis, Fracture, Neck Pain, Chronic, Other (See Below) Other Musculoskeletal History: "I have broken lots of bones. 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." Hematologic History: Reports: Blood Transfusion(s) Oncologic (Cancer) History: Reports: Basal Cell Carcinoma Other Oncologic History: skin CA Dermatologic History: Reports: Other (See Below) Other Dermatologic History: skin CA, basal carcinoma - Past Surgical History HEENT Surgical History: Reports: None Cardiovascular Surgical History: Reports: Coronary Artery Bypass GI Surgical History: Reports: Cholecystectomy, Colonoscopy, Hernia Repair/Other Male Surgical History: Reports: Lithotripsy (ESWL) Neurological Surgical History: Reports: None Musculoskeletal Surgical History: Reports: ORIF Oncologic Surgical History: Reports: None Dermatological Surgical History: Reports: Skin Biopsy Social & Family History - Family History Family Medical History: No Pertinent Family History Cardiac: Reports: [place] Oncologic: Reports: Brain - Tobacco Use Tobacco Use Status *Q: Never Tobacco User - Caffeine Use Caffeine Use: Reports: Coffee - Recreational Drug Use Recreational Drug Use: No - Living Situation & Occupation Living situation: Reports: , with Family Occupation: Employed ED ROS GENERAL - Review of Systems Review Of Systems: See Below Constitutional: Reports: No Symptoms HEENT: Reports: No Symptoms Respiratory: Reports: No Symptoms Cardiovascular: Reports: Chest Pain (belching sensation epigastric), Other (irregular pulse by taking at raddial pulse wrist) GI/Abdominal: Reports: Other (belching sensation) : Reports: No Symptoms Musculoskeletal: Reports: No Symptoms Skin: Reports: No Symptoms Neurological: Reports: No Symptoms Psychiatric: Reports: No Symptoms Hematologic/Lymphatic: Reports: No Symptoms Immunologic: Reports: No Symptoms ED EXAM, GENERAL - Physical Exam Exam: See Below Exam Limited By: No Limitations General Appearance: Alert, WD/WN, No Apparent Distress Eye Exam: Bilateral Eye: Normal Inspection, PERRL Ears: Normal External Exam, Normal Canal, Hearing Grossly Normal, Normal TMs Ear Exam: Bilateral Ear: Auricle Normal, Canal Normal, TM normal Nose: Normal Inspection, Normal Mucosa, No Blood Throat/Mouth: Normal Inspection, Normal Lips, Normal Teeth, Normal Gums, Normal Oropharynx, Normal Voice, No Airway Compromise Head: Atraumatic, Normocephalic Neck: Normal Inspection, Supple, Non-Tender, Full Range of Motion Respiratory/Chest: No Respiratory Distress, Lungs Clear, Normal Breath Sounds, No Accessory Muscle Use, Chest Non-Tender Cardiovascular: Normal Peripheral Pulses, Regular Rate, Rhythm, No Edema, No Gallop, No JVD, No Murmur, No Rub Peripheral Pulses: 2+: Carotid (L), Carotid (R), Radial (L), Radial (R), Posterior Tibial (L), Posterior Tibial (R) GI/Abdominal: Soft, Non-Tender Back Exam: Normal Inspection Extremities: Normal Inspection, Normal Range of Motion, Non-Tender, No Pedal Edema, Normal Capillary Refill Neurological: Alert, Oriented, Normal Cognition, Normal Gait, No Motor/Sensory Deficits Psychiatric: Normal Affect, Normal Mood Skin Exam: Warm, Dry, Intact, Normal Color, No Rash Course - Vital Signs Last Recorded V/S: Last Vital Signs Temp 97.9 F 12/28/20 14:03 Pulse 60 12/28/20 15:33 Resp 16 12/28/20 15:33 BP 118/74 12/28/20 15:33 Pulse Ox 96 12/28/20 15:33 - Orders/Labs/Meds Orders: Active Orders 24 hr Category Date Time Status Cardiac Monitoring [RC] . DIRECTED Care 12/28/20 14:20 Active EKG Documentation Completion [RC] STAT Care 12/28/20 14:19 Active Chest 2V [CR] Stat Exams 12/28/20 14:19 Taken TROPONIN I [CHEM] Stat Lab 12/28/20 18:00 Ordered Labs: Laboratory Tests 12/28/20 12/28/20 12/28/20 Range/Units 14:25 14:25 14:25 WBC 6.5 (5.0-10.0) 10^3/uL RBC 4.73 (4.50-6.00) 10^6/uL Hgb 14.3 (14.0-18.0) g/dL Hct 41.3 (40.0-54.0) % MCV 87.3 (82.0-94.0) fL MCH 30.2 (27.0-32.0) pg MCHC 34.6 (33.0-38.0) g/dL RDW Coeff of [place] 12.9 (11.0-15.0) % Plt Count 167 (150-400) 10^3/uL Neut % (Auto) 70.1 (35-85) % Lymph % (Auto) 19.0 (10-55) % [place] % (Auto) 7.5 (0-16) % Eos % (Auto) 3.1 (0-5) % Baso % (Auto) 0.3 (0-3) % Neut # (Auto) 4.58 (1.80-7.00) 10^3/uL Lymph # (Auto) 1.24 (1.00-4.80) 10^3/uL [place] # (Auto) 0.49 (0.00-0.80) 10^3/uL Eos # (Auto) 0.20 (0.00-0.45) 10^3/uL Baso # (Auto) 0.02 10^3/uL PT 11.0 (9.7-12.3) SEC INR 1.01 (0.92-1.18) Sodium 141 (136-145) mEq/L Potassium 4.4 (3.5-5.0) mEq/L Chloride 104 (98-106) mEq/L Carbon Dioxide 25 (21-32) mmol/L BUN 38 H (7-18) mg/dL Creatinine 1.6 H (0.7-1.3) mg/dL Est Cr Clr Drug Dosing 42.75 mL/min Estimated GFR (MDRD) 43 L (>=60) mL/min Glucose 130 H (75-99) mg/dL Calcium 9.5 (8.4-10.1) mg/dL Total Bilirubin 0.3 (0.0-1.0) mg/dL AST 16 (15-37) U/L ALT 18 (12-78) U/L Alkaline Phosphatase 69 (46-116) U/L Lactate Dehydrogenase 171 (100-190) U/L Creatine Kinase 144 (35-232) U/L Troponin I < 0.017 (0.00-0.06) ng/mL Total Protein 7.5 (6.4-8.2) g/dL Albumin 3.5 (3.4-5.0) g/dL Meds: Medications Discontinued Medications Generic Name Dose Route Start Last Admin Trade Name Elizabeth PRN Reason Stop Dose Admin Aspirin 324 mg 12/28/20 14:18 12/28/20 14:32 Aspirin PO 12/28/20 14:19 Not Given ONETIME ONE - Radiology Interpretation Free Text/Narrative:: CXR: No acute findings - Re-Assessments/Exams Free Text/Narrative Re-Assessment/Exam: 12/28/20 15:34 Patient labs are unremarkable. CR is 1.6 and is consistent with his baseline from previous multiple lab draws. Troponin is negative. Will repeat troponin in 4 hours from first draw. Patient pain free, belching sensation free, irregular pulse free per patient. Will discharge if second troponin is negative. 12/28/20 16:03 Patient reports he has been in a-fib many times before and it comes and goes. He reports he wouldnt have even known if he hadnt checked his pulse. He reports he only came because his work made him come. Patient reports he does not want to stay for a repeat troponin. He reports he has had angina and bypass before and this doesnt feel like that. Patient reports pain free, belching free, irregular pulse per patient free. Patient reports he does not want a repeat troponin and he is ready to go. Patient tells me a joke before he left. Patient aware c ould result in leaving without completion or workup. Departure - Departure Time of Disposition: 16:05 Disposition: Home, Self-Care 01 Condition: Fair Clinical Impression: Pulse irregularity, Left against medical advice - Discharge Information *PRESCRIPTION DRUG MONITORING PROGRAM REVIEWED*: Not Applicable *COPY OF PRESCRIPTION DRUG MONITORING REPORT IN PATIENT MELISSA: Not Applicable Instructions: Atrial Fibrillation, [id number] Referrals: PCP,Unknown [Primary Care Provider] - Forms: ED Department Discharge Additional Instructions: Followup with primary care provider Return to the ER for worsening of condition or any emergent concerns or if you change your mind about repeating cardiac labs Sepsis Event Note (ED) - Evaluation Sepsis Screening Result: No Definite Risk - Focused Exam Vital Signs: Vital Signs Temp Pulse Resp BP Pulse Ox 03/06/21 15:33 60 16 118/74 96 12/28/20 15:18 63 20 132/75 97 12/28/20 15:03 64 15 134/71 95 12/28/20 14:48 58 L 18 131/75 94 L 12/28/20 14:33 68 14 124/88 97 12/28/20 14:18 69 15 149/81 H 96 12/28/20 14:03 97.9 F 70 19 127/83 95 - My Orders Last 24 Hours: My Active Orders 12/28/20 14:19 EKG Documentation Completion [RC] STAT Chest 2V [CR] Stat 12/28/20 14:20 Cardiac Monitoring [RC] . DIRECTED 12/28/20 18:00 TROPONIN I [CHEM] Stat - Assessment/Plan Last 24 Hours: My Active Orders 12/28/20 14:19 EKG Documentation Completion [RC] STAT Chest 2V [CR] Stat 12/28/20 14:20 Cardiac Monitoring [RC] . DIRECTED 12/28/20 18:00 TROPONIN I [CHEM] Stat Plan: PLEASE SEE RN NOTE FOR PFSH
[2020-12-28 14:44] LABS: CHLORIDE,CL 104 mEq/L (98-106); SODIUM,NA 141 mEq/L (136-145)
[2020-12-28] MEDS ORDERED: Bacitracin Oint 28.35 GM Tube TOP STA (15:31)
[2020-12-28 16:31] VITALS: BP 143/83; PULSE 58
== END 2020-12-28 16:14 | disposition left against medical advice (07) ==
LOC: CC.ED 14:00
DX: R00.8 Other abnormalities of heart beat (principal); I10 Essential (primary) hypertension; I25.2 Old myocardial infarction; M19.90 Unspecified osteoarthritis, unspecified site; Z88.5 Allergy status to narcotic agent; Z88.0 Allergy status to penicillin
CPT/HCPCS: 36415; 71046; 80053; 82550; 83615; 84484; 85025; 85610; 93005; 99285-25; A9270-GY

== ENCOUNTER 2021-01-16 18:54 | Emergency (ER) | payer BC, MEDICARE ==
--- NOTE | 2021-01-16 19:16 | EDM.PDOC ---
ED HPI GENERAL MEDICAL PROBLEM - General Chief Complaint: Cardiovascular Problem Stated Complaint: "Heart beating abnormally" Time Seen by Provider: 01/16/21 19:16 Source of Information: Reports: Patient History Limitations: Reports: No Limitations - History of Present Illness INITIAL COMMENTS - FREE TEXT/NARRATIVE: Jason is a 70 yo male who presents to the ED with c/o his heart beating irregular. He reports he feels his pulse with his thumb on his wrist and felt like it was skipping beats so he came to ER. He reports this has been happening daily for the past few weeks. Was seen in ED 12/28/20 for same issue and had normal workup. He denies any other symptoms. Just reports he "felt funny." Denies any chest pain, shortness of breath, N/V/D, dizziness. Does have hx of CABG x5 in 2010 and PCI with stents 2018, as well as history of paroxysmal atrial fibrillation. Chart review indicates he was supposed to be on dual therapy, Eliquis and Plavix, but patient does not believe he is taking Eliquis. He has been taking Plavix. Onset: Today Location: Reports: Chest Associated Symptoms: Reports: No Other Symptoms. Denies: Confusion, Chest Pain, Cough, cough w sputum, Diaphoresis, Fever/Chills, Headaches, Loss of Appetite, Malaise, Nausea/Vomiting, Rash, Seizure, Shortness of Breath, Syncope, Weakness - Related Data Allergies Allergy/AdvReac Type Severity Reaction Status Date / Time meperidine [From Demerol] Allergy Cannot Verified 01/16/21 19:22 Remember Penicillins Allergy Airway Verified 01/16/21 19:22 Tightness Home Meds: Home Meds Aspirin 325 mg PO DAILY 02/01/20 [History] Calcium Carbonate [Calcium] 500 mg PO DAILY 02/01/20 [History] Cholecalciferol (Vitamin D3) [Vitamin D3] 5,000 unit PO DAILY 02/01/20 [History] [place]-3/DHA/Epa/Fish Oil [Fish Oil 1,000 mg Softgel] 2 cap PO DAILY 02/01/20 [History] Clopidogrel [Plavix] 75 mg PO DAILY 01/16/21 [History] atorvaSTATin [Lipitor] 40 mg PO DAILY 01/16/21 [History] Past Medical History HEENT History: Reports: Hard of Hearing Cardiovascular History: Reports: High Cholesterol, Hypertension, [place] Other Cardiovascular History: reports that pt had a heart attack in 2011 follow by a "5 way coronary artery bypass." Respiratory History: Reports: Pneumonia, Recurrent Gastrointestinal History: Reports: GERD, Other (See Below) Other Gastrointestinal History: colitis Genitourinary History: Reports: Renal Calculus Musculoskeletal History: Reports: Arthritis, Fracture, Neck Pain, Chronic, Other (See Below) Other Musculoskeletal History: "I have broken lots of bones. 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." Hematologic History: Reports: Blood Transfusion(s) Oncologic (Cancer) History: Reports: Basal Cell Carcinoma Other Oncologic History: skin CA Dermatologic History: Reports: Other (See Below) Other Dermatologic History: skin CA, basal carcinoma - Infectious Disease History Infectious Disease History: Reports: None - Past Surgical History HEENT Surgical History: Reports: None Cardiovascular Surgical History: Reports: Coronary Artery Bypass GI Surgical History: Reports: Cholecystectomy, Colonoscopy, Hernia Repair/Other Male Surgical History: Reports: Lithotripsy (ESWL) Neurological Surgical History: Reports: None Musculoskeletal Surgical History: Reports: ORIF Oncologic Surgical History: Reports: None Dermatological Surgical History: Reports: Skin Biopsy Social & Family History - Family History Family Medical History: No Pertinent Family History Cardiac: Reports: [place] Oncologic: Reports: Brain - Caffeine Use Caffeine Use: Reports: Coffee - Living Situation & Occupation Living situation: Reports: , with Family Occupation: Employed ED ROS GENERAL - Review of Systems Review Of Systems: Comprehensive ROS is negative, except as noted in HPI. ED EXAM, GENERAL - Physical Exam Exam: See Below Exam Limited By: No Limitations General Appearance: Alert, WD/WN, No Apparent Distress Eye Exam: Bilateral Eye: EOMI, Normal Fundi, Normal Inspection, PERRL Throat/Mouth: Normal Inspection, Normal Lips, Normal Teeth, Normal Gums, Normal Oropharynx, Normal Voice, No Airway Compromise Head: Atraumatic, Normocephalic Neck: Normal Inspection, Supple, Non-Tender, Full Range of Motion Respiratory/Chest: No Respiratory Distress, Lungs Clear, Normal Breath Sounds, No Accessory Muscle Use, Chest Non-Tender Cardiovascular: Normal Peripheral Pulses, Regular Rate, Rhythm, No Edema, No Gallop, No JVD, No Murmur, No Rub GI/Abdominal: Normal Bowel Sounds, Soft, Non-Tender, No Organomegaly, No Distention, No Abnormal Bruit, No Mass Back Exam: Normal Inspection, Full Range of Motion, NT Extremities: Normal Inspection, Normal Range of Motion, Non-Tender, Normal Capillary Refill, No Pedal Edema Neurological: Alert, Oriented, CN II-XII Intact, Normal Cognition, Normal Gait, Normal Reflexes, No Motor/Sensory Deficits Psychiatric: Anxious Skin Exam: Warm, Dry, Intact, Normal Color, No Rash Lymphatic: No Adenopathy Course - Vital Signs Last Recorded V/S: Last Vital Signs Temp 98.5 F 01/16/21 19:05 Pulse 68 01/16/21 19:05 Resp 20 01/16/21 19:05 BP 145/91 H 01/16/21 19:05 Pulse Ox 99 01/16/21 19:05 - Orders/Labs/Meds Labs: Laboratory Tests 01/16/21 01/16/21 01/16/21 Range/Units 19:05 19:05 19:05 WBC 6.2 (5.0-10.0) 10^3/uL RBC 4.92 (4.50-6.00) 10^6/uL Hgb 14.8 (14.0-18.0) g/dL Hct 42.9 (40.0-54.0) % MCV 87.2 (82.0-94.0) fL MCH 30.1 (27.0-32.0) pg MCHC 34.5 (33.0-38.0) g/dL RDW Coeff of Keith 13.0 (11.0-15.0) % Plt Count 178 (150-400) 10^3/uL Neut % (Auto) 68.7 (35-85) % Lymph % (Auto) 22.3 (10-55) % [place] % (Auto) 7.1 (0-16) % Eos % (Auto) 1.6 (0-5) % Baso % (Auto) 0.3 (0-3) % Neut # (Auto) 4.28 (1.80-7.00) 10^3/uL Lymph # (Auto) 1.39 (1.00-4.80) 10^3/uL [place] # (Auto) 0.44 (0.00-0.80) 10^3/uL Eos # (Auto) 0.10 (0.00-0.45) 10^3/uL Baso # (Auto) 0.02 10^3/uL PT 10.5 (9.7-12.3) SEC INR 0.96 (0.92-1.18) APTT 24.7 (23.2-32.3) SEC Sodium 142 (136-145) mEq/L Potassium 4.3 (3.5-5.0) mEq/L Chloride 105 (98-106) mEq/L Carbon Dioxide 28 (21-32) mmol/L BUN 37 H (7-18) mg/dL Creatinine 1.6 H (0.7-1.3) mg/dL Est Cr Clr Drug Dosing 42.75 mL/min Estimated GFR (MDRD) 43 L (>=60) mL/min Glucose 106 H (75-99) mg/dL Calcium 9.8 (8.4-10.1) mg/dL Lactate Dehydrogenase 197 H (100-190) U/L Creatine Kinase 353 H (35-232) U/L Troponin I < 0.017 (0.00-0.06) ng/mL Departure - Departure Time of Disposition: 19:57 Disposition: Home, Self-Care 01 Condition: Fair Clinical Impression: Pulse irregularity, Anxiety, History of atrial fibrillation Instructions: Atrial Fibrillation, [id number] Referrals: Berna Klein RN [Registered Nurse] - Forms: ED Department Discharge Additional Instructions: - EKG and cardiac monitoring normal throughout ED visit - Labs all stable - Did discuss history of paroxysmal atrial fibrillation. Ultimately, should still be anticoagulated. You were previously taking Eliquis (apixaban) 5 mg twice daily. This should be continued. - You have history of paroxysmal atrial fibrillation. Which means your heart can be going in and out of this irregular rhythm. As long as we have you on your blood thinner and pulse is < 100, this irregular pulse is not concerning. - Follow up next week in clinic to establish care and discuss further workup/treatment - Return to ED for emergent needs Sepsis Event Note (ED) - Evaluation Sepsis Screening Result: No Definite Risk - Focused Exam Vital Signs: Vital Signs Temp Pulse Resp BP Pulse Ox 01/16/21 19:05 98.5 F 68 20 145/91 H 99 - Problem List & Annotations (1) History of atrial fibrillation SNOMED Code(s): 804062650 Code(s): Z86.79 - PERSONAL HISTORY OF OTHER DISEASES OF THE CIRCULATORY SYSTEM Status: Acute Current Visit: Yes (2) Pulse irregularity SNOMED Code(s): 86036979 Code(s): R09.89 - OTH SYMPTOMS AND SIGNS INVOLVING THE CIRC AND RESP SYSTEMS Status: Acute Current Visit: Yes (3) Anxiety SNOMED Code(s): 57771804 Code(s): F41.9 - ANXIETY DISORDER, UNSPECIFIED Status: Chronic Priority: High Current Visit: Yes - Assessment/Plan Assessment:: History of Atrial Fibrillation Pulse Irregularity Anxiety Plan: As above.
[2021-01-16 19:27] LABS: CHLORIDE,CL 105 mEq/L (98-106); SODIUM,NA 142 mEq/L (136-145)
[2021-01-16 19:43] LABS: PTT,PARTIAL THROMBOPLSTIN TIME 24.7 SEC (23.2-32.3)
[2021-01-16 20:06] VITALS: BP 140/79; PULSE 60
== END 2021-01-16 20:10 | disposition home or self-care (01) ==
LOC: CC.ED 18:54
DX: F41.9 Anxiety disorder, unspecified (principal); I49.9 Cardiac arrhythmia, unspecified; I48.91 Unspecified atrial fibrillation; E78.00 Pure hypercholesterolemia, unspecified; I10 Essential (primary) hypertension; I25.2 Old myocardial infarction; M19.90 Unspecified osteoarthritis, unspecified site; Z95.1 Presence of aortocoronary bypass graft; Z88.5 Allergy status to narcotic agent; Z88.0 Allergy status to penicillin; Z79.82 Long term (current) use of aspirin; Z79.02 Long term (current) use of antithrombotics/antiplatelets; Z79.899 Other long term (current) drug therapy
CPT/HCPCS: 36415; 80048; 82550; 83615; 84484; 85025; 85610; 85730; 93005; 99285-25

== ENCOUNTER 2021-02-10 17:25 | Emergency (ER) | payer BC, MEDICARE ==
[2021-02-10 17:30] VITALS: BP 161/83; PULSE 65
--- NOTE | 2021-02-10 18:01 | EDM.PDOC ---
ED HPI GENERAL MEDICAL PROBLEM - General Chief Complaint: General Stated Complaint: kidney pain, "juan manuel high blood pressure" Time Seen by Provider: 02/10/21 17:51 Source of Information: Reports: Patient History Limitations: Reports: No Limitations - History of Present Illness INITIAL COMMENTS - FREE TEXT/NARRATIVE: Jason is a 70 yo male who presents to the ED with c/o left flank pain. He reports pain started around 11 o'clock this morning. Reports pain has been constant and worsening since then. He does have history of kidney stones, with known "10 mm stones in his kidneys." Does report that when he urinates it does seem to make the pain in his flank worse. Rates pain 08/03. Patient is in tears. Reports temp of 99 deg throughout the afternoon. Denies any hematuria, urgency, frequency or dysuria. Also reports he has felt nauseated. No vomiting, diarrhea or abdominal pain. Onset: Today Onset Date: 02/10/21 Onset Time: 11:00 Duration: Constant, Getting Worse Location: Reports: Back (left flank ) Quality: Reports: Sharp, Stabbing, Throbbing Severity: Severe Improves with: Reports: None Worsens with: Reports: Movement Associated Symptoms: Reports: Fever/Chills (low grade, 99 deg), Nausea/Vomiting (nausea, no vomiting). Denies: Confusion, Chest Pain, Cough, cough w sputum, Headaches, Loss of Appetite, Malaise, Rash, Seizure, Shortness of Breath, Syncope, Weakness Flank Pain Score (Numeric/FACES): 9 - Related Data Allergies Allergy/AdvReac Type Severity Reaction Status Date / Time meperidine [From Demerol] Allergy Cannot Verified 02/10/21 17:30 Remember Penicillins Allergy Airway Verified 02/10/21 17:30 Tightness Home Meds: Home Meds Aspirin 325 mg PO DAILY 02/01/20 [History] Calcium Carbonate [Calcium] 500 mg PO DAILY 02/01/20 [History] Cholecalciferol (Vitamin D3) [Vitamin D3] 5,000 unit PO DAILY 02/01/20 [History] [place]-3/DHA/Epa/Fish Oil [Fish Oil 1,000 mg Softgel] 2 cap PO DAILY 02/01/20 [History] Clopidogrel [Plavix] 75 mg PO DAILY 01/16/21 [History] atorvaSTATin [Lipitor] 40 mg PO DAILY 01/16/21 [History] Amoxicillin 500 mg PO BID 02/10/21 [History] Apixaban [Eliquis] 5 mg PO DAILY 02/10/21 [History] Past Medical History HEENT History: Reports: Hard of Hearing Cardiovascular History: Reports: Afib, High Cholesterol, Hypertension, [place] Other Cardiovascular History: reports that pt had a heart attack in 2010 follow by a "5 way coronary artery bypass." Respiratory History: Reports: Pneumonia, Recurrent Gastrointestinal History: Reports: GERD, Other (See Below) Other Gastrointestinal History: colitis Genitourinary History: Reports: Renal Calculus Musculoskeletal History: Reports: Arthritis, Fracture, Neck Pain, Chronic, Other (See Below) Other Musculoskeletal History: "I have broken lots of bones. 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." Hematologic History: Reports: Blood Transfusion(s) Oncologic (Cancer) History: Reports: Basal Cell Carcinoma Other Oncologic History: skin CA Dermatologic History: Reports: Other (See Below) Other Dermatologic History: skin CA, basal carcinoma - Infectious Disease History Infectious Disease History: Reports: None - Past Surgical History HEENT Surgical History: Reports: None Cardiovascular Surgical History: Reports: Coronary Artery Bypass Other Cardiovascular Surgeries/Procedures: "5 way bypass" Respiratory Surgical History: Reports: None GI Surgical History: Reports: Cholecystectomy, Colonoscopy, Hernia Repair/Other Male Surgical History: Reports: Lithotripsy (ESWL) Neurological Surgical History: Reports: None Musculoskeletal Surgical History: Reports: ORIF Oncologic Surgical History: Reports: None Dermatological Surgical History: Reports: Skin Biopsy Social & Family History - Family History Family Medical History: No Pertinent Family History Cardiac: Reports: [place] Oncologic: Reports: Brain - Tobacco Use Tobacco Use Status *Q: Never Tobacco User - Caffeine Use Caffeine Use: Reports: Coffee, Soda - Recreational Drug Use Recreational Drug Use: No - Living Situation & Occupation Living situation: Reports: , with Family Occupation: Employed ED ROS GENERAL - Review of Systems Review Of Systems: Comprehensive ROS is negative, except as noted in HPI. ED EXAM, GENERAL - Physical Exam Exam: See Below Exam Limited By: No Limitations General Appearance: Alert, WD/WN, Anxious, Moderate Distress Head: Atraumatic, Normocephalic Neck: Normal Inspection, Supple, Non-Tender, Full Range of Motion Respiratory/Chest: No Respiratory Distress, Lungs Clear, Normal Breath Sounds, No Accessory Muscle Use, Chest Non-Tender Cardiovascular: Normal Peripheral Pulses, Regular Rate, Rhythm, No Edema, No Gallop, No JVD, No Murmur, No Rub GI/Abdominal: Normal Bowel Sounds, Soft, Non-Tender. No: Guarding, Rigid, Rebound Back Exam: CVA Tenderness (L). No: CVA Tenderness (R) Extremities: Normal Inspection, Normal Range of Motion, Non-Tender, Normal Capillary Refill, No Pedal Edema Neurological: Alert, Oriented, CN II-XII Intact, Normal Cognition, Normal Gait, Normal Reflexes, No Motor/Sensory Deficits Psychiatric: Tearful Skin Exam: Warm, Dry, Intact, Normal Color, No Rash Course - Vital Signs Last Recorded V/S: Last Vital Signs Temp 99 F 02/10/21 17:26 Pulse 65 02/10/21 17:26 Resp 18 02/10/21 17:26 BP 161/83 H 02/10/21 17:26 Pulse Ox 96 02/10/21 17:26 - Orders/Labs/Meds Orders: Active Orders 24 hr Category Date Time Status Abdomen Pelvis wo Cont [CT] Stat Exams 02/10/21 17:40 Taken Labs: Laboratory Tests 02/10/21 02/10/21 02/10/21 Range/Units 17:33 17:33 17:33 WBC 7.6 (5.0-10.0) 10^3/uL RBC 4.68 (4.50-6.00) 10^6/uL Hgb 14.1 (14.0-18.0) g/dL Hct 41.3 (40.0-54.0) % MCV 88.2 (82.0-94.0) fL MCH 30.1 (27.0-32.0) pg MCHC 34.1 (33.0-38.0) g/dL RDW Coeff of [place] 12.9 (11.0-15.0) % Plt Count 153 (150-400) 10^3/uL Neut % (Auto) 70.7 (35-85) % Lymph % (Auto) 16.9 (10-55) % [place] % (Auto) 10.7 (0-16) % Eos % (Auto) 1.6 (0-5) % Baso % (Auto) 0.1 (0-3) % Neut # (Auto) 5.37 (1.80-7.00) 10^3/uL Lymph # (Auto) 1.28 (1.00-4.80) 10^3/uL [place] # (Auto) 0.81 H (0.00-0.80) 10^3/uL Eos # (Auto) 0.12 (0.00-0.45) 10^3/uL Baso # (Auto) 0.01 10^3/uL Sodium 141 (136-145) mEq/L Potassium 4.5 (3.5-5.0) mEq/L Chloride 105 (98-106) mEq/L Carbon Dioxide 27 (21-32) mmol/L BUN 27 H (7-18) mg/dL Creatinine 2.2 H (0.7-1.3) mg/dL Est Cr Clr Drug Dosing 31.09 mL/min Estimated GFR (MDRD) 30 L (>=60) mL/min Glucose 113 H (75-99) mg/dL Calcium 9.0 (8.4-10.1) mg/dL Total Bilirubin 0.3 (0.0-1.0) mg/dL AST 22 (15-37) U/L ALT 26 (12-78) U/L Alkaline Phosphatase 71 (46-116) U/L Total Protein 7.0 (6.4-8.2) g/dL Albumin 3.3 L (3.4-5.0) g/dL Urine Color Yellow (YELLOW) Urine Appearance Clear (CLEAR) Urine pH 7.0 (4.5-8.0) Ur Specific [place] 1.020 (1.003-1.020) Urine Protein Negative (NEGATIVE) mg/dL Urine Glucose (UA) Negative (NEGATIVE) mg/dL Urine Ketones Negative (NEGATIVE) mg/dL Urine Occult Blood Trace-intact H (NEGATIVE) Urine Nitrite Negative (NEGATIVE) Urine Bilirubin Negative (NEGATIVE) Urine Urobilinogen 0.2 (0.2-1.0) EU/dL Ur Leukocyte Esterase Negative (NEGATIVE) Urine RBC 0-5 (0-5) /HPF Urine WBC Not seen (0-5) /HPF Meds: Medications Discontinued Medications Generic Name Dose Route Start Last Admin Trade Name Freq PRN Reason Stop Dose Admin Fentanyl 50 mcg 02/10/21 18:05 02/10/21 18:30 Fentanyl 50 Mcg/Ml Sdv IVPUSH 02/10/21 18:06 50 mcg ONETIME ONE Administration Lactated Ringer's 1,000 mls @ 999 mls/hr 02/10/21 18:03 02/10/21 18:31 Ringers, Lactated IV 02/10/21 19:03 999 mls/hr .BOLUS ONE Administration Ondansetron HCl 4 mg 02/10/21 19:28 02/10/21 19:32 Ondansetron 4 Mg/2 Ml Sdv IVPUSH 02/10/21 19:29 4 mg STAT STA Administration Ondansetron HCl 2 packet 02/10/21 19:32 02/10/21 19:52 Take Home: Ondansetron 4 Mg Tab.Dis, 2 Tab Pack PO 02/10/21 19:33 2 packet ONETIME ONE Administration Oxycodone/Acetaminophen 2 packet 02/10/21 19:34 02/10/21 19:52 Take Home: Acetaminophen/Oxycodone 325-5 Mg, 2 Tab Pack PO 02/10/21 19:35 2 packet ONETIME ONE Administration Tamsulosin HCl 0.4 mg 02/10/21 19:34 02/10/21 19:52 Tamsulosin 0.4 Mg Cap.Er PO 02/10/21 19:35 0.4 mg ONETIME ONE Administration - Radiology Interpretation Free Text/Narrative:: 7 mm obstructing stone within the proximal left ureter causing mild to moderate left-sided hydronephrosis. CT Results Date: 02/10/21 CT Results Time: 19:08 - Re-Assessments/Exams Free Text/Narrative Re-Assessment/Exam: 02/10/21 19:09 Contacted [facility] who will page Dr. Santamaria, urologist. 02/10/21 19:[address] Santamaria. He feels if pain tolerable patient can be seen outpatient in clinic tomorrow. Patient agreeable to this plan. Will discharge home on oral pain medications. Departure - Departure Time of Disposition: 19:35 Disposition: Home, Self-Care 01 Condition: Fair Clinical Impression: Left ureteral stone, Hydronephrosis, left Acute kidney failure Qualifiers: Acute renal failure type: unspecified Qualified Code(s): N17.9 - Acute kidney failure, unspecified - Discharge Information *PRESCRIPTION DRUG MONITORING PROGRAM REVIEWED*: Yes *COPY OF PRESCRIPTION DRUG MONITORING REPORT IN PATIENT MELISSA: Yes Instructions: Hydronephrosis Referrals: PCP,None [Primary Care Provider] - Forms: ED Department Discharge Additional Instructions: - Push Fluids - Tylenol 650 mg every 4 hours as needed for pain - Percocet 1 tablet every 6 hours as needed for severe pain - Zofran 1 tablet every 6 hours as needed for nausea/vomiting. You were given a dose in the ED so do not take another until after 1:30 - Follow up tomorrow afternoon with Dr. Santamaria (urologist) at [facility]. Call [phone] in the morning to get scheduled - Return to ED for uncontrollable pain Sepsis Event Note (ED) - Evaluation Sepsis Screening Result: No Definite Risk - Focused Exam Vital Signs: Vital Signs Temp Pulse Resp BP Pulse Ox 02/10/21 17:26 99 F 65 18 161/83 H 96 - Problem List & Annotations (1) Left ureteral stone SNOMED Code(s): 47285233 Code(s): N20.1 - CALCULUS OF URETER Status: Acute (2) Hydronephrosis, left SNOMED Code(s): 45631173 Code(s): N13.30 - UNSPECIFIED HYDRONEPHROSIS Status: Acute (3) Acute kidney failure SNOMED Code(s): 91562694 Code(s): N17.9 - ACUTE KIDNEY FAILURE, UNSPECIFIED Status: Acute Qualifiers: Acute renal failure type: unspecified Qualified Code(s): N17.9 - Acute kidney failure, unspecified - My Orders Last 24 Hours: My Active Orders 02/10/21 17:40 Abdomen Pelvis wo Cont [CT] Stat - Assessment/Plan Last 24 Hours: My Active Orders 02/10/21 17:40 Abdomen Pelvis wo Cont [CT] Stat Assessment:: Left Proximal Ureteral Stone Left Sided Hydronephrosis Acute on Chronic Kidney Failure Plan: Push fluids. Percocet as needed for pain. Tylenol for less severe pain. Was given 1 L LR fluid bolus due to kidney stone and elevated creatinine and GFR. Pain did improve with 50 mcg fentanyl. Consulted with Dr. Santamaria, urologist at [facility], who will see the patient tomorrow afternoon. Patient is advised to call [facility] clinic in the morning to get scheduled appointment time. Patient agreeable with plan. Discharged home in stable condition.
[2021-02-10] MEDS: fentaNYL 50 MCG/ML SDV IVPUSH ONE (18:30)
[2021-02-10] MEDS: Lactated Ringers 1,000 ML IV ONE (18:31)
[2021-02-10] MEDS: Ondansetron 4 MG/2 ML SDV IVPUSH STA (19:32)
[2021-02-10] MEDS: Take Home: Ondansetron 4 MG Tab.DIS, 2 Tab Pack PO ONE (19:52)
[2021-02-10] MEDS: Take Home: Acetaminophen/oxyCODONE 325-5 MG, 2 Tab Pack PO ONE (19:52)
[2021-02-10] MEDS: Tamsulosin 0.4 MG Cap.ER PO ONE (19:52)
== END 2021-02-10 20:08 | disposition home or self-care (01) ==
LOC: CC.ED 17:25
DX: N13.2 Hydronephrosis with renal and ureteral calculous obstruction (principal); N17.9 Acute kidney failure, unspecified; E78.00 Pure hypercholesterolemia, unspecified; I25.2 Old myocardial infarction; I48.91 Unspecified atrial fibrillation; I10 Essential (primary) hypertension; Z88.0 Allergy status to penicillin; Z88.8 Allergy status to other drugs, medicaments and biological substances; Z79.82 Long term (current) use of aspirin; Z79.01 Long term (current) use of anticoagulants; Z90.49 Acquired absence of other specified parts of digestive tract; Z95.1 Presence of aortocoronary bypass graft
CPT/HCPCS: 36415; 74176; 80053; 81001; 85025; 93005; A9270; J2405; J3010; J7120; 96374; 96375; 99284-25

== ENCOUNTER 2021-09-25 10:11 | Inpatient (IN) | payer BC, MEDICARE ==
--- NOTE | 2021-09-25 10:55 | EDM.PDOC ---
ED HPI GENERAL MEDICAL PROBLEM - General Chief Complaint: General Stated Complaint: Dizziness. COVID+ Time Seen by Provider: 09/25/21 10:40 Source of Information: Reports: Patient, RN History Limitations: Reports: No Limitations - History of Present Illness INITIAL COMMENTS - FREE TEXT/NARRATIVE: States that he feels lightheaded and "thinks" that he passed out for a short time. Was able to get himself into the house and call ambulance. He felt dizzy and lightheaded and sick to stomach. He checked his pulse and was not in afib he felt. He denies any chest pain, nausea or diarrhea. He still feels weak but not like he is going to pass out. Does feel very anxious because of it. He states that he feels something is wrong but he doesn't feel like it is his heart. He was feeling well prior to this occurring. Onset: Today Location: Reports: Generalized Associated Symptoms: Denies: Chest Pain, Cough, Loss of Appetite, Shortness of Breath Lower Back Pain Score (Numeric/FACES): 5 - Related Data Allergies Allergy/AdvReac Type Severity Reaction Status Date / Time meperidine [From Demerol] Allergy Cannot Verified 09/25/21 10:16 Remember Penicillins Allergy Airway Verified 09/25/21 10:16 Tightness Home Meds: Home Meds Aspirin 325 mg PO DAILY 02/01/20 [History] Calcium Carbonate [Calcium] 500 mg PO DAILY 02/01/20 [History] Cholecalciferol (Vitamin D3) [Vitamin D3] 5,000 unit PO DAILY 02/01/20 [History] [place]-3/DHA/Epa/Fish Oil [Fish Oil 1,000 mg Softgel] 2 cap PO DAILY 02/01/20 [History] atorvaSTATin [Lipitor] 40 mg PO DAILY 01/16/21 [History] Magnesium 250 mg PO DAILY 09/25/21 [History] Past Medical History HEENT History: Reports: Hard of Hearing Cardiovascular History: Reports: Afib, High Cholesterol, Hypertension, [place] Other Cardiovascular History: reports that pt had a heart attack in 2010 follow by a "5 way coronary artery bypass." Respiratory History: Reports: Pneumonia, Recurrent Gastrointestinal History: Reports: GERD, Other (See Below) Other Gastrointestinal History: colitis Genitourinary History: Reports: Renal Calculus Musculoskeletal History: Reports: Arthritis, Fracture, Neck Pain, Chronic, Other (See Below) Other Musculoskeletal History: "I have broken lots of bones. 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." Hematologic History: Reports: Blood Transfusion(s) Oncologic (Cancer) History: Reports: Basal Cell Carcinoma Other Oncologic History: skin CA Dermatologic History: Reports: Other (See Below) Other Dermatologic History: skin CA, basal carcinoma - Infectious Disease History Infectious Disease History: Reports: None - Past Surgical History HEENT Surgical History: Reports: None Cardiovascular Surgical History: Reports: Coronary Artery Bypass Other Cardiovascular Surgeries/Procedures: "5 way bypass" Respiratory Surgical History: Reports: None GI Surgical History: Reports: Cholecystectomy, Colonoscopy, Hernia Repair/Other Male Surgical History: Reports: Lithotripsy (ES[facility]) Neurological Surgical History: Reports: None Musculoskeletal Surgical History: Reports: ORIF Oncologic Surgical History: Reports: None Dermatological Surgical History: Reports: Skin Biopsy Social & Family History - Family History Family Medical History: No Pertinent Family History Cardiac: Reports: [place] Oncologic: Reports: Brain - Tobacco Use Tobacco Use Status *Q: Never Tobacco User - Caffeine Use Caffeine Use: Reports: Coffee - Recreational Drug Use Recreational Drug Use: No - Living Situation & Occupation Living situation: Reports: , with Family Occupation: Employed ED ROS GENERAL - Review of Systems Review Of Systems: See Below Constitutional: Denies: Fever, Chills, Weakness HEENT: Reports: No Symptoms Respiratory: Reports: No Symptoms Cardiovascular: Reports: No Symptoms GI/Abdominal: Reports: No Symptoms Musculoskeletal: Reports: No Symptoms Skin: Reports: No Symptoms Neurological: Reports: Dizziness, Weakness. Denies: Confusion, Headache, Trouble Speaking, Change in Speech Psychiatric: Reports: Anxiety ED EXAM, GENERAL - Physical Exam Exam: See Below Exam Limited By: No Limitations General Appearance: Alert, WD/WN, Mild Distress Ears: Normal External Exam, Normal Canal, Normal TMs Throat/Mouth: Normal Inspection, Normal Oropharynx, Normal Voice Head: Atraumatic, Normocephalic Neck: Normal Inspection, Supple, Non-Tender, Full Range of Motion Respiratory/Chest: No Respiratory Distress, Lungs Clear, Normal Breath Sounds Cardiovascular: Normal Peripheral Pulses, Regular Rate, Rhythm, No Edema GI/Abdominal: Normal Bowel Sounds, Soft, Non-Tender Back Exam: Normal Inspection Extremities: Normal Inspection, Non-Tender, No Pedal Edema, Normal Capillary Refill Neurological: Alert, Oriented Psychiatric: Anxious, Tearful Skin Exam: Warm, Dry, Intact Course - Vital Signs Last Recorded V/S: Last Vital Signs Temp 99.0 F 09/25/21 20:15 Pulse 84 09/25/21 16:00 Resp 18 09/25/21 16:00 BP 154/79 H 09/25/21 16:00 Pulse Ox 96 09/25/21 16:00 - Orders/Labs/Meds Orders: Active Orders 24 hr Category Date Time Status Ondansetron [Zofran] Med 09/25/21 12:33 Active 4 mg IVPUSH Q6H PRN Medication Orders Acetaminophen (Acetaminophen 325 Mg Tab) 650 mg PO Q4H PRN PRN Reason: Pain (Mild 1-3)/fever Last Admin: 09/25/21 20:15 Dose: 650 mg Documented by: ARBEN Aspirin (Aspirin 325 Mg Tab) 325 mg PO DAILY [facility] Atorvastatin Calcium (Atorvastatin 20 Mg Tab) 40 mg PO DAILY [facility] Calcium Carbonate/Glycine (Calcium Carbonate 500 Mg Tab.Chew) 500 mg PO QID PRN PRN Reason: Dyspepsia Last Admin: 09/25/21 20:14 Dose: 500 mg Documented by: ARBEN Heparin Sodium/Sodium Chloride (Heparin 25,000 Units In 1/2 Ns 500 Ml) 500 mls @ 18.144 mls/hr IV TITRATE MARGO; Protocol Last Admin: 09/25/21 14:44 Dose: 12 units/kg/hr, 18.144 mls/hr Documented by: BARRON Cosigned by: SLOANE Ondansetron HCl (Ondansetron 4 Mg/2 Ml Sdv) 4 mg IVPUSH Q6H PRN PRN Reason: Nausea/Vomiting Last Admin: 09/25/21 12:36 Dose: 4 mg Documented by: ALEXYS Ondansetron HCl (Ondansetron 4 Mg Tab.Dis) 4 mg PO Q4H PRN PRN Reason: nausea, able to take PO Pantoprazole Sodium (Pantoprazole 40 Mg Vial) 40 mg IVPUSH Q12H MARGO Last Admin: 09/25/21 20:15 Dose: 40 mg Documented by: ARBEN Labs: Laboratory Tests 09/25/21 09/25/2121 Range/Units 10:45 10:45 10:45 WBC 7.3 (4.0-11.0) 10^3/uL RBC 5.20 (4.50-6.00) x10^6/uL Hgb 15.4 (14.0-18.0) g/dL Hct 44.7 (42.0-52.0) % MCV 86.0 (83.0-97.0) fL MCH 29.6 (27.0-32.0) pg MCHC 34.5 (32.0-36.0) g/dL RDW Coeff of Keith 12.1 (11.0-15.0) % Plt Count 187 (150-400) 10^3/uL Immature Gran % (Auto) 1.0 (0.0-4.9) % Neut % (Auto) 67.4 (41-71) % Lymph % (Auto) 21.0 L (24-44) % [place] % (Auto) 8.4 (0-10) % Eos % (Auto) 1.9 (0-6) % Baso % (Auto) 0.3 (0-1) % Neut # (Auto) 4.90 (1.80-8.00) x10^3/uL Lymph # (Auto) 1.53 (0.60-5.00) 10^3/uL [place] # (Auto) 0.61 (0.00-1.50) 10^3/uL Eos # (Auto) 0.14 (0.00-1.50) 10^3/uL Baso # (Auto) 0.02 (0.00-0.50) 10^3/uL Immature Gran # (Auto) 0.07 (0.00-0.49) 10^3/uL PT 10.9 (9.7-12.3) SEC INR 1.00 (0.92-1.18) Sodium 142 (136-145) mEq/L Potassium 4.6 (3.5-5.0) mEq/L Chloride 106 (98-106) mEq/L Carbon Dioxide 29 (21-32) mmol/L BUN 20 H (7-18) mg/dL Creatinine 1.5 H (0.7-1.3) mg/dL Est Cr Clr Drug Dosing 44.97 mL/min Estimated GFR (MDRD) 46 L (>=60) mL/min Glucose 105 H D (75-99) mg/dL Calcium 9.2 (8.4-10.1) mg/dL Lactate Dehydrogenase 169 (100-190) U/L Creatine Kinase 74 (35-232) U/L Troponin I High Sens 325.5 H* (<=76) pg/mL Meds: Medications Generic Name Dose Route Start Last Admin Trade Name Elizabeth PRN Reason Stop Dose Admin Acetaminophen 650 mg 09/25/21 13:46 09/25/21 20:15 Acetaminophen 325 Mg Tab PO 650 mg Q4H PRN Administration Pain (Mild 1-3)/fever Aspirin 325 mg 09/26/21 08:00 Aspirin 325 Mg Tab PO DAILY [facility] Atorvastatin Calcium 40 mg 09/26/21 08:00 Atorvastatin 20 Mg Tab PO DAILY [facility] Calcium Carbonate/Glycine 500 mg 09/25/21 18:50 09/25/21 20:14 Calcium Carbonate 500 Mg Tab.Chew PO 500 mg QID PRN Administration Dyspepsia Heparin Sodium/Sodium Chloride 500 mls @ 18.144 mls/hr 09/25/21 14:15 09/25/21 14:44 Heparin 25,000 Units In 1/2 Ns 500 Ml IV 12 units/kg/hr TITRATE MARGO 18.144 mls/hr Administration Protocol 12 UNITS/KG/HR Ondansetron HCl 4 mg 09/25/21 12:33 09/25/21 12:36 Ondansetron 4 Mg/2 Ml Sdv IVPUSH 4 mg Q6H PRN Administration Nausea/Vomiting Ondansetron HCl 4 mg 09/25/21 13:46 Ondansetron 4 Mg Tab.Dis PO Q4H PRN nausea, able to take PO Pantoprazole Sodium 40 mg 09/25/21 20:00 09/25/21 20:15 Pantoprazole 40 Mg Vial IVPUSH 40 mg Q12H MARGO Administration Discontinued Medications Generic Name Dose Route Start Last Admin Trade Name Elizabeth PRN Reason Stop Dose Admin Heparin Sodium (Porcine) 4,000 units 09/25/21 14:03 09/25/21 14:35 Heparin Sodium 5,000 Units/Ml Vial IVPUSH 09/25/21 14:04 4,000 units ONETIME ONE Administration - Re-Assessments/Exams Free Text/Narrative Re-Assessment/Exam: 09/25/21 1145 called [facility] and discussed pt with Dr. Abernathy applications chemist quarter backer. She states that with his history of 5 vessel bypass in the future he has high concerns for potential for arrhythmias causing the syncope and that he needs to have angiogram but they are full and can not accept the pt at this time. She did suggest that he goes on Heparin gtt and get echo and repeat troponins. 1158 call [facility] and they do not have any open beds. [address] [facility] and they do not have any open beds 1204 call [facility] and they would be able to take the pt for angiogram but because he is on day 9 of his COVID they do not have a COVID bed available. THey did suggest that we call again tomorrow and see if bed is available tomorrow. They are not able to save bed as they have a waiting list. Pt was discussed with Dr. Hilton and explained situation about no open beds. He will be admitted her on telemetry with repeat troponins per protocols. Will get ECHO when able. Heparin gtt will be started. Situation was explained to pt and he voices understanding. Departure - Departure Time of Disposition: 13:00 Disposition: Admitted As Inpatient 68 Clinical Impression: NSTEMI (non-ST elevated myocardial infarction), Syncope and collapse - Discharge Information *PRESCRIPTION DRUG MONITORING PROGRAM REVIEWED*: Not Applicable *COPY OF PRESCRIPTION DRUG MONITORING REPORT IN PATIENT MELISSA: Not Applicable Sepsis Event Note (ED) - Evaluation Sepsis Screening Result: No Definite Risk - Focused Exam Vital Signs: Vital Signs Temp Pulse Resp BP Pulse Ox 09/25/21 12:50 98.7 F 65 18 148/49 H 97 09/25/21 12:11 97.2 F 63 18 160/94 H 96 09/25/21 11:30 97.9 F 66 18 177/98 H 97 09/25/21 10:25 167/94 H 09/25/21 10:18 174/98 H 09/25/21 10:11 97.9 F 61 18 191/98 H 97 - Problem List & Annotations (1) NSTEMI (non-ST elevated myocardial infarction) SNOMED Code(s): 47682083 Code(s): I21.4 - NON-ST ELEVATION (NSTEMI) MYOCARDIAL INFARCTION Status: Acute Priority: High Current Visit: Yes (2) Syncope and collapse SNOMED Code(s): 310507182 Code(s): R55 - SYNCOPE AND COLLAPSE Status: Acute Priority: High Current Visit: Yes - Problem List Review Problem List Initiated/Reviewed/Updated: Yes - My Orders Last 24 Hours: My Active Orders 09/25/21 12:33 Ondansetron [Zofran] 4 mg IVPUSH Q6H PRN - Assessment/Plan Admission H&P: Please use this note as an admission H&P Last 24 Hours: My Active Orders 09/25/21 12:33 Ondansetron [Zofran] 4 mg IVPUSH Q6H PRN Plan: Due to his elevated Troponin and NSTEMI will admit acute status with Heparin gt t, echo tomorrow, Will follow up with serial troponins.
[2021-09-25] MEDS ORDERED: Ondansetron 4 MG/2 ML SDV IVPUSH PRN (12:33)
[2021-09-25] MEDS ORDERED: Ondansetron 4 MG Tab.DIS PO PRN (13:46)
[2021-09-25] MEDS ORDERED: Acetaminophen 325 MG Tab PO PRN (13:46)
[2021-09-25] MEDS ORDERED: Heparin Sodium 5,000 Units/ML Vial IVPUSH ONE ×2 (14:03→21:30)
[2021-09-25] MEDS ORDERED: Heparin Sodium/0.45% NaCl 500 ML IV SCH (14:15)
[2021-09-25] MEDS ORDERED: Calcium Carbonate 500 MG Tab.Chew PO PRN (18:50)
[2021-09-25] MEDS: Pantoprazole 40 MG Vial IVPUSH SCH (20:15)
[2021-09-26] MEDS ORDERED: atorvaSTATin 20 MG Tab PO SCH (08:00)
[2021-09-26] MEDS ORDERED: Aspirin 325 MG Tab PO SCH (08:00)
[2021-09-26] MEDS: Pantoprazole 40 MG Vial IVPUSH SCH (08:31)
[2021-09-26] MEDS ORDERED: Metoprolol Tartrate 25 MG Tab PO SCH (12:45)
[2021-09-26 13:54] VITALS: BP 136/75; PULSE 72
--- NOTE | 2021-09-26 14:13 | PN ---
DATE: S: Mr. Marcelino is a 71-year-old male with known coronary artery disease, has a history of a 5-vessel bypass approximately 12 years ago, and then I believe, a stent placed 2 years ago. He presented to [facility], yesterday on the date of admit with complaint of dizziness. He got lightheaded and felt he passed out for some time. He was able to get himself into his home, called an ambulance, and was brought in to our facility. [facility] did an evaluation on him. It is worthy to note that he is, I believe, on day 9 of having a positive COVID test, but for the most part, his COVID symptoms were improved. Had not had much for any fevers or cough. His exam was notable for an elevated troponin, even though his EKG was normal. He has not had any classic chest pain, but his troponin was 325. [facility] did talk to the on-call eligibility and occupancy interviewer, and they do agree that he needs an angiogram, but they could not accept him. Because of his likely NSTEMI, they recommended cares including an echo, and we are to call today to find out. We are waiting on that at this point. He has no significant discomfort at this time. Says he is breathing easy. He has not required any supplemental O2. He has been on heparin drip since admission. O: GENERAL: The patient is pleasant, alert, and cooperative and in no distress. NECK: Supple. Veins are flat. LUNGS: Lungs sounds appear to be clear without rales, rhonchi, or wheeze. CARDIAC: Tones are regular in the 60s and sinus. ABDOMEN: He has no abdominal pain to palpation. EXTREMITIES: No peripheral edema. ASSESSMENT: 1. SYNCOPAL EPISODE, QUESTIONABLE ETIOLOGY. 2. NON-ST ELEVATED MYOCARDIAL INFARCTION. 3. POSITIVE COVID-19. 4. HISTORY OF CORONARY ARTERY DISEASE. P: We will call back to [facility] and inquire about their ability to take him on transfer. Otherwise, at this time, I am going to put him on a low-dose beta remington and make no other changes. VERONICA/RUBI /[id number]
--- NOTE | 2021-09-28 06:00 | DISCH ---
ADDENDUM: See progress note from today, 09/26/2021. I was able to contact Dr. Estrada at [facility], who agrees to accept this patient on transfer. The patient will continue on heparin drip and his aspirin. I did start him on a low-dose beta remington. The patient will go ALS ground to [facility], and transfer forms are completed. VERONICA/RUBI /[id number]
== END 2021-09-26 16:25 | DRG 190 ==
LOC: CC.ED 10:11 → CC.MS 13:08 → UNDOADMIN 13:11 → CC.MS 13:11
PROVIDERS: ADMIT Physician Assistant Medical; ATTEND Family Medicine
DX: I21.4 Non-ST elevation (NSTEMI) myocardial infarction (principal); U07.1 COVID-19; H91.90 Unspecified hearing loss, unspecified ear; I48.91 Unspecified atrial fibrillation; E78.00 Pure hypercholesterolemia, unspecified; I10 Essential (primary) hypertension; I25.2 Old myocardial infarction; K21.9 Gastro-esophageal reflux disease without esophagitis; M19.90 Unspecified osteoarthritis, unspecified site; G89.29 Other chronic pain; M54.2 Cervicalgia; F41.9 Anxiety disorder, unspecified; F32.A Depression, unspecified; I25.10 Atherosclerotic heart disease of native coronary artery without angina pectoris; Z88.5 Allergy status to narcotic agent; Z88.0 Allergy status to penicillin; Z79.82 Long term (current) use of aspirin; Z79.899 Other long term (current) drug therapy; Z87.01 Personal history of pneumonia (recurrent); Z85.828 Personal history of other malignant neoplasm of skin; Z95.1 Presence of aortocoronary bypass graft; Z90.49 Acquired absence of other specified parts of digestive tract
CPT/HCPCS: 36415; 80048; 80053; 82550; 83615; 83735; 84484; 85025; 85610; 85730; 93005; A9270-GY; C9113; J1644; J2405

== ENCOUNTER 2021-11-22 11:42 | Emergency (ER) | payer BC, MEDICARE ==
[2021-11-22] MEDS ORDERED: Aspirin 81 MG Tab.Chew PO ONE (11:54)
[2021-11-22] MEDS ORDERED: Ketorolac 30 MG/ML SDV IVPUSH ONE (12:05)
[2021-11-22 12:33] VITALS: BP 139/93; PULSE 67
== END 2021-11-22 12:56 | disposition home or self-care (01) ==
LOC: CC.ED 11:42
DX: S29.012A Strain of muscle and tendon of back wall of thorax, initial encounter (principal); R07.9 Chest pain, unspecified; I25.10 Atherosclerotic heart disease of native coronary artery without angina pectoris; I10 Essential (primary) hypertension; I48.91 Unspecified atrial fibrillation; E78.00 Pure hypercholesterolemia, unspecified; K21.9 Gastro-esophageal reflux disease without esophagitis; Z88.0 Allergy status to penicillin; Z88.5 Allergy status to narcotic agent; Z79.82 Long term (current) use of aspirin; Z95.1 Presence of aortocoronary bypass graft; Z79.01 Long term (current) use of anticoagulants; Z79.899 Other long term (current) drug therapy; X50.0XXA Overexertion from strenuous movement or load, initial encounter
CPT/HCPCS: 36415; 71046; 80053; 84484; 85025; 93005; 96374; 99285-25; A9270-GY; J1885

== ENCOUNTER 2022-01-10 11:34 | Emergency (ER) | payer BC, MEDICARE ==
[~2022-01-10 11:34] MED LIST: Ondansetron 4 MG/2 ML SDV ONE
[2022-01-10] MEDS: Ondansetron 4 MG/2 ML SDV IVPUSH STA (11:48)
[2022-01-10] MEDS ORDERED: Dexamethasone 4 MG Tab ONE (12:58)
[2022-01-10] MEDS: Take Home: Ondansetron 4 MG Tab.DIS, 2 Tab Pack PO ONE (13:22)
[2022-01-10] MEDS: Take Home: Levofloxacin 500 MG Tab, 1 Tab Pack PO ONE (13:23)
[2022-01-10] MEDS: Dexamethasone 4 MG Tab PO SCH (13:23)
[2022-01-10 14:02] VITALS: BP 161/79; PULSE 82
== END 2022-01-10 14:02 | disposition home or self-care (01) ==
LOC: CC.ED 11:34
DX: U07.1 COVID-19 (principal); J12.82 Pneumonia due to coronavirus disease 2019; R11.2 Nausea with vomiting, unspecified; I48.91 Unspecified atrial fibrillation; E78.00 Pure hypercholesterolemia, unspecified; I10 Essential (primary) hypertension; I25.2 Old myocardial infarction; K21.9 Gastro-esophageal reflux disease without esophagitis; Z88.0 Allergy status to penicillin; Z79.82 Long term (current) use of aspirin; Z20.822 Contact with and (suspected) exposure to COVID-19
CPT/HCPCS: 36415; 71045; 80053; 83735; 84484; 85025; 85379; 86140; 93005; 96374; 99284; 99284-25; A9270-GY; J2405; J8540; U0002

== ENCOUNTER 2022-01-13 15:39 | Emergency (ER) | payer BC, MEDICARE ==
[2022-01-13 15:55] VITALS: BP 184/98; PULSE 63
== END 2022-01-13 17:12 | disposition home or self-care (01) ==
LOC: CC.ED 15:39
DX: J18.9 Pneumonia, unspecified organism (principal); F41.9 Anxiety disorder, unspecified; I25.2 Old myocardial infarction; I48.91 Unspecified atrial fibrillation; K21.9 Gastro-esophageal reflux disease without esophagitis; E78.00 Pure hypercholesterolemia, unspecified; I10 Essential (primary) hypertension; Z95.1 Presence of aortocoronary bypass graft; Z88.0 Allergy status to penicillin; Z88.8 Allergy status to other drugs, medicaments and biological substances; Z79.82 Long term (current) use of aspirin; Z79.01 Long term (current) use of anticoagulants; Z79.899 Other long term (current) drug therapy
CPT/HCPCS: 36415; 71045; 80053; 82550; 83615; 83735; 84484; 85025; 85379; 85610; 93005; 99284; 99284-25

== ENCOUNTER 2022-06-26 06:58 | Emergency (ER) | payer BC, MEDICARE ==
[2022-06-26] MEDS ORDERED: Clopidogrel 75 MG Tab PO ONE (08:24)
[2022-06-26] MEDS ORDERED: Heparin Sodium/0.45% NaCl 500 ML IV SCH (08:30)
[2022-06-26] MEDS ORDERED: Heparin Sodium 5,000 Units/ML Vial IVPUSH ONE (08:34)
[2022-06-26 09:17] VITALS: BP 149/86; PULSE 50
== END 2022-06-26 09:41 ==
LOC: CC.ED 06:58
DX: I21.4 Non-ST elevation (NSTEMI) myocardial infarction (principal); I48.91 Unspecified atrial fibrillation; I25.10 Atherosclerotic heart disease of native coronary artery without angina pectoris; E78.00 Pure hypercholesterolemia, unspecified; I10 Essential (primary) hypertension; I25.2 Old myocardial infarction; K21.9 Gastro-esophageal reflux disease without esophagitis; Z95.5 Presence of coronary angioplasty implant and graft; Z95.1 Presence of aortocoronary bypass graft; Z88.0 Allergy status to penicillin; Z88.5 Allergy status to narcotic agent; Z79.82 Long term (current) use of aspirin; Z79.01 Long term (current) use of anticoagulants; Z79.899 Other long term (current) drug therapy
CPT/HCPCS: 36415; 71046; 80053; 84484; 85025; 85610; 85730; 93005; 93010; 96360; 99285; 99285-25; A9270-GY; J1644

== ENCOUNTER 2022-07-12 18:38 | Observation (INO) | payer BC, MEDICARE ==
[2022-07-12] MEDS ORDERED: Ondansetron 4 MG/2 ML SDV IVPUSH PRN (19:16)
[2022-07-12 19:17] LABS: CHLORIDE,CL 104 mEq/L (98-106); ESTIMATED GFR 50 mL/min (>=60); SODIUM,NA 144 mEq/L (136-145)
[2022-07-12] MEDS ORDERED: Sodium Chloride 0.9% 1,000 ML IV ONE (19:29)
[2022-07-12] MEDS ORDERED: Pantoprazole 40 MG Vial IVPUSH STA (20:57)
[2022-07-12] MEDS ORDERED: Alum Hydrox/Mag Hydrox/Simeth 30 ML, Lidocaine 2% 15 ML PO ONE ×2 (21:33)
[2022-07-12] MEDS ORDERED: Ondansetron 4 MG/2 ML SDV IV PRN (22:55)
[2022-07-12] MEDS ORDERED: Acetaminophen 325 MG Tab PO PRN (22:55)
[2022-07-13 12:02] VITALS: BP 140/76; PULSE 58
[2022-07-13] MEDS ORDERED: Aspirin 81 MG Tab.Chew PO SCH (20:00)
== END 2022-07-13 14:45 | disposition home or self-care (01) ==
LOC: CC.ED 18:38 → UNDOADMOB 21:26 → CC.MS 21:26 → CC.ED 21:56 → CC.MS 22:55
PROVIDERS: ADMIT Nurse Practitioner Family; ATTEND Nurse Practitioner Family
DX: S06.2X0A Diffuse traumatic brain injury without loss of consciousness, initial encounter (principal); I25.2 Old myocardial infarction; I25.10 Atherosclerotic heart disease of native coronary artery without angina pectoris; E78.00 Pure hypercholesterolemia, unspecified; I10 Essential (primary) hypertension; K21.9 Gastro-esophageal reflux disease without esophagitis; Z98.890 Other specified postprocedural states; Z88.0 Allergy status to penicillin; Z88.8 Allergy status to other drugs, medicaments and biological substances; Z79.82 Long term (current) use of aspirin; Z79.899 Other long term (current) drug therapy; Z86.16 Personal history of COVID-19
CPT/HCPCS: 36415; 70450; 72125; 80053; 83735; 84484; 85025; 85610; 93005; 93010; 96374; 96375; 99217; 99220; 99285-25; C9113; G0378; J2405; J7030

== ENCOUNTER 2022-07-15 23:05 | Emergency (ER) | payer BC, MEDICARE ==
[2022-07-15] MEDS: Sodium Chloride 0.9% 500 ML IV SCH (23:25)
[2022-07-15] MEDS: Ondansetron 4 MG/2 ML SDV IVPUSH STA (23:25)
[2022-07-15 23:44] LABS: CHLORIDE,CL 105 mEq/L (98-106); ESTIMATED GFR 50 mL/min (>=60); SODIUM,NA 144 mEq/L (136-145)
[2022-07-15] MEDS: Alum Hydrox/Mag Hydrox/Simeth 30 ML, Lidocaine 2% 15 ML PO ONE ×2 (23:48)
[2022-07-16] MEDS: Promethazine 12.5 MG in Sodium Chloride 0.9% 100 ML IV ONE (00:07)
[2022-07-16] MEDS: methylPREDNISolone Sodium Succinate 125 MG/2 ML SDV IVPUSH STA (00:35)
[2022-07-16 01:41] VITALS: BP 140/72; PULSE 70
== END 2022-07-16 01:05 | disposition home or self-care (01) ==
LOC: CC.ED 23:05
DX: R11.14 Bilious vomiting (principal); I25.10 Atherosclerotic heart disease of native coronary artery without angina pectoris; S06.890S Other specified intracranial injury without loss of consciousness, sequela; I10 Essential (primary) hypertension; I25.2 Old myocardial infarction; Z88.8 Allergy status to other drugs, medicaments and biological substances; Z88.0 Allergy status to penicillin; Z79.899 Other long term (current) drug therapy; Z79.82 Long term (current) use of aspirin; Z86.16 Personal history of COVID-19; Z90.49 Acquired absence of other specified parts of digestive tract
CPT/HCPCS: 36415; 70450; 80053; 84484; 85025; 86140; 93005; 93010; 96361; 96374; 96375; 99284; 99284-25; A9270-GY; J2405; J2550; J2930; J7040

== ENCOUNTER 2022-09-15 19:38 | Emergency (ER) | payer BC, MEDICARE ==
[2022-09-15] MEDS ORDERED: Aspirin 81 MG Tab.Chew PO ONE (19:45)
[2022-09-15 20:18] LABS: PTT,PARTIAL THROMBOPLSTIN TIME 23.6 SEC (23.2-32.3)
[2022-09-15] MEDS ORDERED: cloNIDine 0.1 MG Tab PO STA (20:38)
[2022-09-15] MEDS ORDERED: Simethicone 80 MG Tab.Chew PO STA (20:38)
[2022-09-15 20:42] LABS: CORONAVIRUS COVID-19 NAA NEGATIVE (NEGATIVE)
[2022-09-15] MEDS ORDERED: Sodium Chloride 0.9% 10 ML Syringe FLUSH PRN (21:00)
[2022-09-15] MEDS ORDERED: Ondansetron 4 MG/2 ML SDV IVPUSH STA (21:00)
[2022-09-15 21:32] VITALS: BP 154/80; PULSE 82
== END 2022-09-15 21:40 | disposition home or self-care (01) ==
LOC: CC.ED 19:38
DX: K52.9 Noninfective gastroenteritis and colitis, unspecified (principal); K21.9 Gastro-esophageal reflux disease without esophagitis; I10 Essential (primary) hypertension; I44.4 Left anterior fascicular block; I25.709 Atherosclerosis of coronary artery bypass graft(s), unspecified, with unspecified angina pectoris; E78.00 Pure hypercholesterolemia, unspecified; I25.2 Old myocardial infarction; Z88.5 Allergy status to narcotic agent; Z88.0 Allergy status to penicillin; Z79.899 Other long term (current) drug therapy; Z20.822 Contact with and (suspected) exposure to COVID-19
CPT/HCPCS: 0240U; 36415; 70450; 71045; 80053; 82550; 83615; 83690; 83735; 84484; 85025; 85610; 85730; 93005; 93010; 96374; 99284; 99285-25; A9270-GY; J2405

== ENCOUNTER 2023-01-31 07:28 | Emergency (ER) | payer BC, MEDICARE ==
[2023-01-31 08:08] LABS: CHLORIDE,CL 105 mEq/L (98-106); SODIUM,NA 142 mEq/L (136-145)
[2023-01-31 08:10] LABS: PTT,PARTIAL THROMBOPLSTIN TIME 24.3 SEC (20.0-30.0)
[2023-01-31 08:17] LABS: ESTIMATED GFR 59 mL/min (>=60)
[2023-01-31 08:40] VITALS: BP 150/77; PULSE 60
== END 2023-01-31 09:10 | disposition home or self-care (01) ==
LOC: CC.ED 07:28
DX: R41.0 Disorientation, unspecified (principal); I25.10 Atherosclerotic heart disease of native coronary artery without angina pectoris; E78.00 Pure hypercholesterolemia, unspecified; I10 Essential (primary) hypertension; I25.2 Old myocardial infarction; Z88.5 Allergy status to narcotic agent; Z88.0 Allergy status to penicillin; Z79.899 Other long term (current) drug therapy; Z79.02 Long term (current) use of antithrombotics/antiplatelets; Z86.16 Personal history of COVID-19
CPT/HCPCS: 36415; 70450; 80048; 81003; 82550; 84484; 85027; 85610; 85730; 93005; 93010; 99284; 99285

== ENCOUNTER 2023-06-25 17:39 | Emergency (ER) | payer BC, MEDICARE ==
[2023-06-25 18:00] LABS: BASOPHILS ABSOLUTE AUTO 0.03 10^3/uL (0.00-0.50); BASOPHILS PERCENT AUTO 0.4 % (0-1); EOSINOPHILS ABSOLUTE AUTO 0.14 10^3/uL (0.00-1.50); HEMATOCRIT 41.5 % (42.0-52.0); HEMOGLOBIN 14.3 g/dL (14.0-18.0); IMMATURE GRAN ABSOLUTE AUTO 0.01 10^3/uL (0.00-0.49); IMMATURE GRAN PERCENT AUTO 0.1 % (0.0-4.9); LYMPHOCYTES ABSOLUTE AUTO 1.78 10^3/uL (0.60-5.00); LYMPHOCYTES PERCENT AUTO 25.2 % (24-44); MEAN CORPUSCULAR HEMOGLOBIN 29.8 pg (27.0-32.0); MEAN CORPUSCULAR HGB CONC 34.5 g/dL (32.0-36.0); MEAN CORPUSCULAR VOLUME 86.5 fL (83.0-97.0); MONOCYTES ABSOLUTE AUTO 0.43 10^3/uL (0.00-1.50); MONOCYTES PERCENT AUTO 6.1 % (0-10); NEUTROPHILS ABSOLUTE AUTO 4.67 x10^3/uL (1.80-8.00); NEUTROPHILS PERCENT AUTO 66.2 % (41-71); PLATELET COUNT,PLT 175 10^3/uL (150-400); WHITE BLOOD CELL COUNT,WBC 7.1 10^3/uL (4.0-11.0)
[2023-06-25 18:16] LABS: ALBUMIN 3.6 g/dL (3.4-5.0); BILIRUBIN TOTAL 0.3 mg/dL (0.0-1.0); CALCIUM 9.3 mg/dL (8.4-10.1); CREATININE 1.5 mg/dL (0.7-1.3); EST CRCL DRUG DOSING (CG) 44.33 mL/min; MAGNESIUM 2.2 mg/dL (1.8-2.4); POTASSIUM,K 3.8 mEq/L (3.5-5.0); PROTEIN TOTAL,TP 7.2 g/dL (6.4-8.2)
[2023-06-25 18:17] LABS: INR 1.02 (0.92-1.18); PROTHROMBIN TIME 10.5 SEC (9.3-11.3); PTT,PARTIAL THROMBOPLSTIN TIME 25.6 SEC (20.0-30.0)
[2023-06-25] MEDS ORDERED: Sodium Chloride 0.9% 500 ML IV SCH (18:30)
[2023-06-25] MEDS ORDERED: Heparin Sodium 5,000 Units/ML Vial IVPUSH ONE (21:10)
[2023-06-25] MEDS ORDERED: Heparin Sodium/0.45% NaCl 500 ML IV SCH (21:15)
[2023-06-25] MEDS ORDERED: Clopidogrel 75 MG Tab PO ONE (21:39)
[2023-06-25] MEDS ORDERED: Nitroglycerin 2% Oint 1 GM UD Packet TOP ONE (21:42)
[2023-06-25] MEDS ORDERED: Morphine 2 MG/ML SYRINGE IV ONE (21:42)
[2023-06-25] MEDS ORDERED: Nitroglycerin/D5W 25 MG/250 ML BOTTLE IV SCH (22:15)
[2023-06-25 23:55] VITALS: PULSE 70
[2023-06-26 00:22] VITALS: BP 191/90
== END 2023-06-25 22:40 ==
LOC: CC.ED 17:39
DX: I21.4 Non-ST elevation (NSTEMI) myocardial infarction (principal); I25.10 Atherosclerotic heart disease of native coronary artery without angina pectoris; E78.00 Pure hypercholesterolemia, unspecified; I10 Essential (primary) hypertension; I25.2 Old myocardial infarction; Z86.73 Personal history of transient ischemic attack (TIA), and cerebral infarction without residual deficits; Z86.16 Personal history of COVID-19; Z95.1 Presence of aortocoronary bypass graft; Z88.5 Allergy status to narcotic agent; Z88.0 Allergy status to penicillin; Z79.899 Other long term (current) drug therapy; Z79.02 Long term (current) use of antithrombotics/antiplatelets
CPT/HCPCS: 36415; 71045; 80053; 82550; 82947; 83690; 83735; 84484; 85025; 85610; 85730; 93005; 93010; 96365; 96368; 96375; 96376; 99284; 99291-25; A9270-GY; J1644; J2270; J3490; J7040

== ENCOUNTER 2023-07-24 10:31 | Emergency (ER) | payer BC, MEDICARE ==
[2023-07-24 10:37] VITALS: BP 162/88; PULSE 58
[2023-07-24] MEDS: Bupivacaine 0.5% 10 ML SDV INJECT ONE (11:03)
[2023-07-24] MEDS: Lidocaine 1% 5 ML VIAL INJECT ONE (11:04)
[2023-07-24] MEDS: Bupivacaine 0.25% 10 ML SDV INJECT ONE (11:05)
[2023-07-24] MEDS: Bacitracin/Neomycin/Polymyxin B Oint 0.9 GM U/D Packet TOP ONE (11:27)
== END 2023-07-24 11:35 | disposition home or self-care (01) ==
LOC: CC.ED 10:31
DX: S61.210A Laceration without foreign body of right index finger without damage to nail, initial encounter (principal); I25.810 Atherosclerosis of coronary artery bypass graft(s) without angina pectoris; I48.91 Unspecified atrial fibrillation; I10 Essential (primary) hypertension; I25.2 Old myocardial infarction; E78.00 Pure hypercholesterolemia, unspecified; K21.9 Gastro-esophageal reflux disease without esophagitis; Z86.16 Personal history of COVID-19; Z88.5 Allergy status to narcotic agent; Z88.0 Allergy status to penicillin; Z79.899 Other long term (current) drug therapy; Z79.02 Long term (current) use of antithrombotics/antiplatelets; W26.8XXA Contact with other sharp object(s), not elsewhere classified, initial encounter
CPT/HCPCS: 12001; 73140-F6; 99283; A9270-GY; J3490

== ENCOUNTER 2023-08-05 19:22 | Inpatient (IN) | payer BC, MEDICARE ==
[2023-08-05] MEDS ORDERED: Aspirin 81 MG Tab.Chew PO ONE (19:25)
[2023-08-05] MEDS ORDERED: Ondansetron 4 MG/2 ML SDV IVPUSH STA (19:35)
[2023-08-05 19:43] LABS: BASOPHILS ABSOLUTE AUTO 0.02 10^3/uL (0.00-0.50); BASOPHILS PERCENT AUTO 0.3 % (0-1); EOSINOPHILS ABSOLUTE AUTO 0.15 10^3/uL (0.00-1.50); EOSINOPHILS PERCENT AUTO 2.4 % (0-6); HEMATOCRIT 41.8 % (42.0-52.0); HEMOGLOBIN 14.3 g/dL (14.0-18.0); IMMATURE GRAN ABSOLUTE AUTO 0.01 10^3/uL (0.00-0.49); IMMATURE GRAN PERCENT AUTO 0.2 % (0.0-4.9); LYMPHOCYTES ABSOLUTE AUTO 1.36 10^3/uL (0.60-5.00); MEAN CORPUSCULAR HEMOGLOBIN 29.6 pg (27.0-32.0); MEAN CORPUSCULAR HGB CONC 34.2 g/dL (32.0-36.0); MEAN CORPUSCULAR VOLUME 86.5 fL (83.0-97.0); MONOCYTES ABSOLUTE AUTO 0.42 10^3/uL (0.00-1.50); MONOCYTES PERCENT AUTO 6.8 % (0-10); NEUTROPHILS ABSOLUTE AUTO 4.21 x10^3/uL (1.80-8.00); NEUTROPHILS PERCENT AUTO 68.3 % (41-71); PLATELET COUNT,PLT 166 10^3/uL (150-400); RED BLOOD CELL COUNT 4.83 x10^6/uL (4.50-6.00); WHITE BLOOD CELL COUNT,WBC 6.2 10^3/uL (4.0-11.0)
[2023-08-05 19:59] LABS: ALBUMIN 3.6 g/dL (3.4-5.0); BILIRUBIN TOTAL 0.3 mg/dL (0.0-1.0); CALCIUM 9.7 mg/dL (8.4-10.1); CREATININE 1.5 mg/dL (0.7-1.3); EST CRCL DRUG DOSING (CG) 43.7 mL/min; MAGNESIUM 1.8 mg/dL (1.8-2.4); POTASSIUM,K 3.9 mEq/L (3.5-5.0); PROTEIN TOTAL,TP 7.4 g/dL (6.4-8.2)
[2023-08-05] MEDS ORDERED: Heparin Sodium 5,000 Units/ML Vial IVPUSH ONE (20:25)
[2023-08-05] MEDS: Heparin Sodium/0.45% NaCl 500 ML IV SCH (21:07)
[2023-08-05] MEDS ORDERED: Polyethylene Glycol 3350 Powder 17 GM Packet PO PRN (22:11)
[2023-08-05] MEDS ORDERED: Ondansetron 4 MG Tab.DIS PO PRN (22:11)
[2023-08-05] MEDS ORDERED: Acetaminophen 325 MG Tab PO PRN (22:11)
[2023-08-05] MEDS ORDERED: Nitroglycerin 0.4 MG Tab.SL SL PRN (22:11)
[2023-08-05] MEDS ORDERED: Docusate Sodium 100 MG Cap PO PRN (22:11)
[2023-08-05] MEDS ORDERED: Ondansetron 4 MG/2 ML SDV IV PRN (22:11)
[2023-08-05] MEDS ORDERED: Morphine 2 MG/ML SYRINGE IVPUSH PRN (22:11)
[2023-08-06] MEDS ORDERED: Clopidogrel 75 MG Tab PO ONE (00:18)
[2023-08-06] MEDS: Pantoprazole 40 MG Tab.CR PO SCH (06:19)
[2023-08-06] MEDS: Cholecalciferol (Vitamin D3) 25 MCG Tab PO SCH (08:15)
[2023-08-06] MEDS: Lisinopril 5 MG Tab PO SCH (08:16)
[2023-08-06] MEDS: Isosorbide Mononitrate 30 MG Tab.ER PO SCH (08:16)
[2023-08-06] MEDS: atorvaSTATin 20 MG Tab PO SCH (08:16)
[2023-08-06 09:15] LABS: BASOPHILS ABSOLUTE AUTO 0.01 10^3/uL (0.00-0.50); BASOPHILS PERCENT AUTO 0.2 % (0-1); EOSINOPHILS ABSOLUTE AUTO 0.14 10^3/uL (0.00-1.50); EOSINOPHILS PERCENT AUTO 2.9 % (0-6); HEMATOCRIT 38.5 % (42.0-52.0); IMMATURE GRAN ABSOLUTE AUTO 0.01 10^3/uL (0.00-0.49); IMMATURE GRAN PERCENT AUTO 0.2 % (0.0-4.9); LYMPHOCYTES ABSOLUTE AUTO 1.06 10^3/uL (0.60-5.00); MEAN CORPUSCULAR HEMOGLOBIN 29.3 pg (27.0-32.0); MEAN CORPUSCULAR HGB CONC 33.8 g/dL (32.0-36.0); MEAN CORPUSCULAR VOLUME 86.7 fL (83.0-97.0); MONOCYTES ABSOLUTE AUTO 0.34 10^3/uL (0.00-1.50); MONOCYTES PERCENT AUTO 7.1 % (0-10); NEUTROPHILS ABSOLUTE AUTO 3.25 x10^3/uL (1.80-8.00); NEUTROPHILS PERCENT AUTO 67.6 % (41-71); PLATELET COUNT,PLT 127 10^3/uL (150-400); RED BLOOD CELL COUNT 4.44 x10^6/uL (4.50-6.00); WHITE BLOOD CELL COUNT,WBC 4.8 10^3/uL (4.0-11.0)
[2023-08-06 09:32] LABS: CALCIUM 8.9 mg/dL (8.4-10.1); CREATININE 1.3 mg/dL (0.7-1.3); EST CRCL DRUG DOSING (CG) 50.42 mL/min; MAGNESIUM 1.7 mg/dL (1.8-2.4); POTASSIUM,K 3.8 mEq/L (3.5-5.0)
[2023-08-06] MEDS ORDERED: Heparin Sodium 5,000 Units/ML Vial IVPUSH ONE (21:27)
[2023-08-06] MEDS: Heparin Sodium/0.45% NaCl 500 ML IV SCH (21:42)
[2023-08-07] MEDS: Pantoprazole 40 MG Tab.CR PO SCH (06:53)
[2023-08-07] MEDS: Cholecalciferol (Vitamin D3) 25 MCG Tab PO SCH (08:18)
[2023-08-07] MEDS: Isosorbide Mononitrate 30 MG Tab.ER PO SCH (08:18)
[2023-08-07] MEDS: Lisinopril 5 MG Tab PO SCH (08:19)
[2023-08-07] MEDS: atorvaSTATin 20 MG Tab PO SCH (08:19)
[2023-08-07] MEDS: Clopidogrel 75 MG Tab PO SCH (08:19)
[2023-08-07] MEDS: Heparin Sodium/0.45% NaCl 500 ML IV SCH (23:01)
[2023-08-08] MEDS: Pantoprazole 40 MG Tab.CR PO SCH (06:40)
[2023-08-08] MEDS: Cholecalciferol (Vitamin D3) 25 MCG Tab PO SCH (07:09)
[2023-08-08] MEDS: Clopidogrel 75 MG Tab PO SCH (07:11)
[2023-08-08] MEDS: Lisinopril 5 MG Tab PO SCH (07:11)
[2023-08-08] MEDS: atorvaSTATin 20 MG Tab PO SCH (07:11)
[2023-08-08] MEDS: Isosorbide Mononitrate 30 MG Tab.ER PO SCH (07:12)
[2023-08-08 09:08] LABS: BASOPHILS ABSOLUTE AUTO 0.03 10^3/uL (0.00-0.50); BASOPHILS PERCENT AUTO 0.5 % (0-1); EOSINOPHILS PERCENT AUTO 3.4 % (0-6); HEMATOCRIT 41.7 % (42.0-52.0); HEMOGLOBIN 14.1 g/dL (14.0-18.0); IMMATURE GRAN ABSOLUTE AUTO 0.01 10^3/uL (0.00-0.49); IMMATURE GRAN PERCENT AUTO 0.2 % (0.0-4.9); LYMPHOCYTES ABSOLUTE AUTO 1.63 10^3/uL (0.60-5.00); LYMPHOCYTES PERCENT AUTO 27.6 % (24-44); MEAN CORPUSCULAR HEMOGLOBIN 29.3 pg (27.0-32.0); MEAN CORPUSCULAR HGB CONC 33.8 g/dL (32.0-36.0); MEAN CORPUSCULAR VOLUME 86.7 fL (83.0-97.0); MONOCYTES ABSOLUTE AUTO 0.46 10^3/uL (0.00-1.50); MONOCYTES PERCENT AUTO 7.8 % (0-10); NEUTROPHILS ABSOLUTE AUTO 3.58 x10^3/uL (1.80-8.00); NEUTROPHILS PERCENT AUTO 60.5 % (41-71); PLATELET COUNT,PLT 141 10^3/uL (150-400); RED BLOOD CELL COUNT 4.81 x10^6/uL (4.50-6.00); WHITE BLOOD CELL COUNT,WBC 5.9 10^3/uL (4.0-11.0)
[2023-08-08 09:24] LABS: ALBUMIN 3.3 g/dL (3.4-5.0); BILIRUBIN TOTAL 0.5 mg/dL (0.0-1.0); CALCIUM 9.1 mg/dL (8.4-10.1); CREATININE 1.5 mg/dL (0.7-1.3); EST CRCL DRUG DOSING (CG) 43.7 mL/min; MAGNESIUM 1.9 mg/dL (1.8-2.4); POTASSIUM,K 4.2 mEq/L (3.5-5.0); PROTEIN TOTAL,TP 6.9 g/dL (6.4-8.2)
[2023-08-08 16:04] VITALS: BP 127/68
[2023-08-08 18:52] VITALS: PULSE 52
== END 2023-08-08 18:10 | DRG 190 ==
LOC: CC.ED 19:22 → CC.MS 21:20
PROVIDERS: ADMIT Nurse Practitioner; ATTEND Nurse Practitioner
PROC: 3E033GC Introduction of Other Therapeutic Substance into Peripheral Vein, Percutaneous Approach (ICD-10-PCS; principal; 2023-08-05)
DX: I21.4 Non-ST elevation (NSTEMI) myocardial infarction (principal); I25.10 Atherosclerotic heart disease of native coronary artery without angina pectoris; I12.9 Hypertensive chronic kidney disease with stage 1 through stage 4 chronic kidney disease, or unspecified chronic kidney disease; N18.32 Chronic kidney disease, stage 3b; E78.00 Pure hypercholesterolemia, unspecified; I48.91 Unspecified atrial fibrillation; K21.9 Gastro-esophageal reflux disease without esophagitis; M19.90 Unspecified osteoarthritis, unspecified site; M54.2 Cervicalgia; G89.29 Other chronic pain; F41.9 Anxiety disorder, unspecified; F32.A Depression, unspecified; I25.2 Old myocardial infarction; Z95.5 Presence of coronary angioplasty implant and graft; Z95.1 Presence of aortocoronary bypass graft; Z88.0 Allergy status to penicillin; Z88.8 Allergy status to other drugs, medicaments and biological substances; Z79.02 Long term (current) use of antithrombotics/antiplatelets; Z79.899 Other long term (current) drug therapy; Z87.01 Personal history of pneumonia (recurrent); Z87.81 Personal history of (healed) traumatic fracture; Z87.442 Personal history of urinary calculi; Z85.828 Personal history of other malignant neoplasm of skin; Z90.49 Acquired absence of other specified parts of digestive tract; Z98.890 Other specified postprocedural states; Z86.73 Personal history of transient ischemic attack (TIA), and cerebral infarction without residual deficits; Z79.82 Long term (current) use of aspirin; Z79.01 Long term (current) use of anticoagulants
CPT/HCPCS: 36415; 71045; 80048; 80053; 83735; 84484; 85025; 85730; 93005; 93010; 96374; 99285-25; A9270-GY; J1644; J2405

== ENCOUNTER 2023-12-07 19:58 | Emergency (ER) | payer BC, MEDICARE ==
[2023-12-07 20:24] LABS: BASOPHILS ABSOLUTE AUTO 0.04 10^3/uL (0.00-0.50); BASOPHILS PERCENT AUTO 0.6 % (0-1); EOSINOPHILS ABSOLUTE AUTO 0.18 10^3/uL (0.00-1.50); EOSINOPHILS PERCENT AUTO 2.9 % (0-6); HEMATOCRIT 44.6 % (42.0-52.0); HEMOGLOBIN 14.9 g/dL (14.0-18.0); IMMATURE GRAN ABSOLUTE AUTO 0.01 10^3/uL (0.00-0.49); IMMATURE GRAN PERCENT AUTO 0.2 % (0.0-4.9); LYMPHOCYTES ABSOLUTE AUTO 2.05 10^3/uL (0.60-5.00); LYMPHOCYTES PERCENT AUTO 32.5 % (24-44); MEAN CORPUSCULAR HEMOGLOBIN 29.3 pg (27.0-32.0); MEAN CORPUSCULAR HGB CONC 33.4 g/dL (32.0-36.0); MEAN CORPUSCULAR VOLUME 87.6 fL (83.0-97.0); MONOCYTES ABSOLUTE AUTO 0.55 10^3/uL (0.00-1.50); MONOCYTES PERCENT AUTO 8.7 % (0-10); NEUTROPHILS ABSOLUTE AUTO 3.48 x10^3/uL (1.80-8.00); NEUTROPHILS PERCENT AUTO 55.1 % (41-71); PLATELET COUNT,PLT 135 10^3/uL (150-400); RED BLOOD CELL COUNT 5.09 x10^6/uL (4.50-6.00); WHITE BLOOD CELL COUNT,WBC 6.3 10^3/uL (4.0-11.0)
[2023-12-07 20:38] LABS: ALBUMIN 3.6 g/dL (3.4-5.0); BILIRUBIN TOTAL 0.4 mg/dL (0.0-1.0); C-REACTIVE PROTEIN 0.53 mg/dL (<=0.50); CALCIUM 9.2 mg/dL (8.4-10.1); CREATININE 1.2 mg/dL (0.7-1.3); EST CRCL DRUG DOSING (CG) 54.63 mL/min; MAGNESIUM 1.8 mg/dL (1.8-2.4); POTASSIUM,K 3.6 mEq/L (3.5-5.0); PROTEIN TOTAL,TP 7.4 g/dL (6.4-8.2)
[2023-12-07 21:53] VITALS: BP 183/85; PULSE 70
== END 2023-12-07 23:27 | disposition home or self-care (01) ==
LOC: CC.ED 19:58
DX: I20.0 Unstable angina (principal); I25.110 Atherosclerotic heart disease of native coronary artery with unstable angina pectoris; E78.00 Pure hypercholesterolemia, unspecified; I10 Essential (primary) hypertension; I25.2 Old myocardial infarction; K21.9 Gastro-esophageal reflux disease without esophagitis; Z88.8 Allergy status to other drugs, medicaments and biological substances; Z88.0 Allergy status to penicillin; Z95.1 Presence of aortocoronary bypass graft; Z95.5 Presence of coronary angioplasty implant and graft; Z86.16 Personal history of COVID-19; Z79.899 Other long term (current) drug therapy
CPT/HCPCS: 36415; 71045; 80053; 83735; 84484; 85025; 86140; 93005; 99285

== ENCOUNTER 2024-02-23 10:23 | Emergency (ER) | payer BC, MEDICARE ==
[2024-02-23 10:55] LABS: BASOPHILS ABSOLUTE AUTO 0.03 10^3/uL (0.00-0.50); BASOPHILS PERCENT AUTO 0.4 % (0-1); EOSINOPHILS ABSOLUTE AUTO 0.16 10^3/uL (0.00-1.50); EOSINOPHILS PERCENT AUTO 2.3 % (0-6); HEMATOCRIT 48.7 % (42.0-52.0); HEMOGLOBIN 16.4 g/dL (14.0-18.0); IMMATURE GRAN ABSOLUTE AUTO 0.02 10^3/uL (0.00-0.49); IMMATURE GRAN PERCENT AUTO 0.3 % (0.0-4.9); LYMPHOCYTES ABSOLUTE AUTO 1.36 10^3/uL (0.60-5.00); LYMPHOCYTES PERCENT AUTO 19.2 % (24-44); MEAN CORPUSCULAR HEMOGLOBIN 29.9 pg (27.0-32.0); MEAN CORPUSCULAR HGB CONC 33.7 g/dL (32.0-36.0); MEAN CORPUSCULAR VOLUME 88.9 fL (83.0-97.0); MONOCYTES ABSOLUTE AUTO 0.54 10^3/uL (0.00-1.50); MONOCYTES PERCENT AUTO 7.6 % (0-10); NEUTROPHILS ABSOLUTE AUTO 4.98 x10^3/uL (1.80-8.00); NEUTROPHILS PERCENT AUTO 70.2 % (41-71); PLATELET COUNT,PLT 160 10^3/uL (150-400); RED BLOOD CELL COUNT 5.48 x10^6/uL (4.50-6.00); WHITE BLOOD CELL COUNT,WBC 7.1 10^3/uL (4.0-11.0)
[2024-02-23 11:08] LABS: ALANINE AMINOTRANSFERASE,ALT 21 U/L (12-78); ALKALINE PHOSPHATASE 91 U/L (46-116); ASPARTATE AMNIOTRANSFERASE,AST 16 U/L (15-37); BILIRUBIN TOTAL 0.6 mg/dL (0.0-1.0); BLOOD UREA NITROGEN,BUN 20 mg/dL (7-18); C-REACTIVE PROTEIN 0.88 mg/dL (<=0.50); CALCIUM 9.3 mg/dL (8.4-10.1); CARBON DIOXIDE,CO2 30 mmol/L (21-32); CHLORIDE,CL 99 mEq/L (98-106); CREATININE 1.6 mg/dL (0.7-1.3); GLUCOSE RANDOM 108 mg/dL (75-99); POTASSIUM,K 4.4 mEq/L (3.5-5.0); PROTEIN TOTAL,TP 7.9 g/dL (6.4-8.2); SODIUM,NA 136 mEq/L (136-145)
[2024-02-23 11:16] LABS: ESTIMATED GFR 46 mL/min (>=60)
[2024-02-23] MEDS ORDERED: Ondansetron 4 MG/2 ML SDV IVPUSH PRN (11:20)
[2024-02-23 14:59] VITALS: BP 180/88; PULSE 55
== END 2024-02-23 12:08 ==
LOC: SUPCPDRO 10:23 → CC.ED 10:23
DX: G93.9 Disorder of brain, unspecified (principal); R00.1 Bradycardia, unspecified; R20.0 Anesthesia of skin; I48.91 Unspecified atrial fibrillation; I10 Essential (primary) hypertension; E78.00 Pure hypercholesterolemia, unspecified; I25.2 Old myocardial infarction; Z95.5 Presence of coronary angioplasty implant and graft; I25.10 Atherosclerotic heart disease of native coronary artery without angina pectoris; K21.9 Gastro-esophageal reflux disease without esophagitis; Z86.73 Personal history of transient ischemic attack (TIA), and cerebral infarction without residual deficits; Z86.16 Personal history of COVID-19; Z88.0 Allergy status to penicillin; Z88.8 Allergy status to other drugs, medicaments and biological substances; Z90.49 Acquired absence of other specified parts of digestive tract
CPT/HCPCS: 36415; 70450; 80053; 83735; 84484; 85025; 85730; 86140; 93005; 93010; 99284; 99285

== ENCOUNTER 2024-07-25 08:29 | Emergency (ER) | payer BC, MEDICARE ==
[2024-07-25 09:14] LABS: BASOPHILS ABSOLUTE AUTO 0.03 10^3/uL (0.00-0.50); BASOPHILS PERCENT AUTO 0.5 % (0-1); EOSINOPHILS ABSOLUTE AUTO 0.16 10^3/uL (0.00-1.50); EOSINOPHILS PERCENT AUTO 2.4 % (0-6); HEMATOCRIT 42.9 % (42.0-52.0); HEMOGLOBIN 14.5 g/dL (14.0-18.0); IMMATURE GRAN ABSOLUTE AUTO 0.02 10^3/uL (0.00-0.49); IMMATURE GRAN PERCENT AUTO 0.3 % (0.0-4.9); LYMPHOCYTES ABSOLUTE AUTO 1.53 10^3/uL (0.60-5.00); LYMPHOCYTES PERCENT AUTO 23.4 % (24-44); MEAN CORPUSCULAR HEMOGLOBIN 30.3 pg (27.0-32.0); MEAN CORPUSCULAR HGB CONC 33.8 g/dL (32.0-36.0); MEAN CORPUSCULAR VOLUME 89.6 fL (83.0-97.0); MONOCYTES ABSOLUTE AUTO 0.51 10^3/uL (0.00-1.50); MONOCYTES PERCENT AUTO 7.8 % (0-10); NEUTROPHILS ABSOLUTE AUTO 4.29 x10^3/uL (1.80-8.00); NEUTROPHILS PERCENT AUTO 65.6 % (41-71); PLATELET COUNT,PLT 161 10^3/uL (150-400); RED BLOOD CELL COUNT 4.79 x10^6/uL (4.50-6.00); WHITE BLOOD CELL COUNT,WBC 6.5 10^3/uL (4.0-11.0)
[2024-07-25 09:29] LABS: ALBUMIN 3.5 g/dL (3.4-5.0); BILIRUBIN TOTAL 0.5 mg/dL (0.0-1.0); C-REACTIVE PROTEIN 0.79 mg/dL (<=0.50); CREATININE 1.5 mg/dL (0.7-1.3); EST CRCL DRUG DOSING (CG) 43.07 mL/min; POTASSIUM,K 4.3 mEq/L (3.5-5.0); PROTEIN TOTAL,TP 6.8 g/dL (6.4-8.2)
[2024-07-25] MEDS: cloNIDine 0.1 MG Tab PO ONE (09:48)
[2024-07-25 09:51] LABS: INR 1.01 (0.92-1.18); PROTHROMBIN TIME 10.6 SEC (9.3-11.3); PTT,PARTIAL THROMBOPLSTIN TIME 25.7 SEC (20.0-30.0)
[2024-07-25 10:24] VITALS: BP 163/82; PULSE 47
== END 2024-07-25 10:40 | disposition home or self-care (01) ==
LOC: CC.ED 08:29
DX: I16.0 Hypertensive urgency (principal); F41.9 Anxiety disorder, unspecified; I10 Essential (primary) hypertension; I25.10 Atherosclerotic heart disease of native coronary artery without angina pectoris; I25.2 Old myocardial infarction; K21.9 Gastro-esophageal reflux disease without esophagitis; Z86.16 Personal history of COVID-19; Z90.49 Acquired absence of other specified parts of digestive tract; Z95.5 Presence of coronary angioplasty implant and graft; Z79.899 Other long term (current) drug therapy; Z88.0 Allergy status to penicillin; Z88.8 Allergy status to other drugs, medicaments and biological substances
CPT/HCPCS: 36415; 70450; 71046; 80053; 84484; 85025; 85610; 85730; 86140; 93005; 99284; A9270-GY

== ENCOUNTER 2024-09-05 08:20 | Emergency (ER) | payer BC, MEDICARE ==
[2024-09-05 08:29] VITALS: BP 172/90; PULSE 68
[2024-09-05 08:44] LABS: APPEARANCE,URINE CLEAR (CLEAR); BASOPHILS ABSOLUTE AUTO 0.04 10^3/uL (0.00-0.50); BASOPHILS PERCENT AUTO 0.6 % (0-1); BILIRUBIN,URINE NEGATIVE (NEGATIVE); COLOR,URINE YELLOW (YELLOW); EOSINOPHILS ABSOLUTE AUTO 0.14 10^3/uL (0.00-1.50); GLUCOSE,URINE NEGATIVE (NEGATIVE); HEMATOCRIT 47.9 % (42.0-52.0); HEMOGLOBIN 16.1 g/dL (14.0-18.0); IMMATURE GRAN ABSOLUTE AUTO 0.01 10^3/uL (0.00-0.49); IMMATURE GRAN PERCENT AUTO 0.1 % (0.0-4.9); KETONES,URINE NEGATIVE (NEGATIVE); LEUKOCYTE ESTERASE,URINE NEGATIVE (NEGATIVE); LYMPHOCYTES ABSOLUTE AUTO 1.61 10^3/uL (0.60-5.00); MEAN CORPUSCULAR HEMOGLOBIN 29.8 pg (27.0-32.0); MEAN CORPUSCULAR HGB CONC 33.6 g/dL (32.0-36.0); MEAN CORPUSCULAR VOLUME 88.7 fL (83.0-97.0); MONOCYTES PERCENT AUTO 8.6 % (0-10); NEUTROPHILS ABSOLUTE AUTO 4.59 x10^3/uL (1.80-8.00); NEUTROPHILS PERCENT AUTO 65.7 % (41-71); NITRITE,URINE NEGATIVE (NEGATIVE); OCCULT BLOOD,URINE NEGATIVE (NEGATIVE); PH,URINE 6.5 (4.5-8.0); PLATELET COUNT,PLT 183 10^3/uL (150-400); PROTEIN,URINE NEGATIVE (NEGATIVE); UROBILINOGEN,URINE 0.2 EU/dL (0.2-1.0)
[2024-09-05 08:57] LABS: ALBUMIN 3.8 g/dL (3.4-5.0); BILIRUBIN TOTAL 0.5 mg/dL (0.0-1.0); CALCIUM 9.7 mg/dL (8.4-10.1); CREATININE 1.6 mg/dL (0.7-1.3); EST CRCL DRUG DOSING (CG) 40.38 mL/min; MAGNESIUM 1.9 mg/dL (1.8-2.4); POTASSIUM,K 4.4 mEq/L (3.5-5.0); PROTEIN TOTAL,TP 7.6 g/dL (6.4-8.2)
== END 2024-09-05 09:27 | disposition home or self-care (01) ==
LOC: CC.ED 08:20
DX: R53.1 Weakness (principal); I25.10 Atherosclerotic heart disease of native coronary artery without angina pectoris; I25.2 Old myocardial infarction; I10 Essential (primary) hypertension; K21.9 Gastro-esophageal reflux disease without esophagitis; Z86.16 Personal history of COVID-19; Z90.49 Acquired absence of other specified parts of digestive tract; Z95.5 Presence of coronary angioplasty implant and graft; Z88.0 Allergy status to penicillin; Z88.8 Allergy status to other drugs, medicaments and biological substances; Z79.899 Other long term (current) drug therapy
CPT/HCPCS: 36415; 80053; 81003; 83735; 85025; 93005; 99285

== ENCOUNTER 2024-10-03 11:15 | Emergency (ER) | payer BC, MEDICARE ==
[2024-10-03 11:48] VITALS: BP 148/83; PULSE 68
[2024-10-03 11:51] LABS: BASOPHILS ABSOLUTE AUTO 0.03 10^3/uL (0.00-0.50); BASOPHILS PERCENT AUTO 0.4 % (0-1); EOSINOPHILS ABSOLUTE AUTO 0.09 10^3/uL (0.00-1.50); EOSINOPHILS PERCENT AUTO 1.3 % (0-6); HEMATOCRIT 43.7 % (42.0-52.0); HEMOGLOBIN 14.6 g/dL (14.0-18.0); IMMATURE GRAN ABSOLUTE AUTO 0.02 10^3/uL (0.00-0.49); IMMATURE GRAN PERCENT AUTO 0.3 % (0.0-4.9); LYMPHOCYTES ABSOLUTE AUTO 1.51 10^3/uL (0.60-5.00); LYMPHOCYTES PERCENT AUTO 22.4 % (24-44); MEAN CORPUSCULAR HGB CONC 33.4 g/dL (32.0-36.0); MEAN CORPUSCULAR VOLUME 89.9 fL (83.0-97.0); MONOCYTES ABSOLUTE AUTO 0.55 10^3/uL (0.00-1.50); MONOCYTES PERCENT AUTO 8.1 % (0-10); NEUTROPHILS ABSOLUTE AUTO 4.55 x10^3/uL (1.80-8.00); NEUTROPHILS PERCENT AUTO 67.5 % (41-71); PLATELET COUNT,PLT 151 10^3/uL (150-400); RED BLOOD CELL COUNT 4.86 x10^6/uL (4.50-6.00); WHITE BLOOD CELL COUNT,WBC 6.8 10^3/uL (4.0-11.0)
[2024-10-03 12:17] LABS: APPEARANCE,URINE CLEAR (CLEAR); BILIRUBIN,URINE NEGATIVE (NEGATIVE); COLOR,URINE DARK YELLOW (YELLOW); GLUCOSE,URINE NEGATIVE (NEGATIVE); KETONES,URINE NEGATIVE (NEGATIVE); LEUKOCYTE ESTERASE,URINE NEGATIVE (NEGATIVE); NITRITE,URINE NEGATIVE (NEGATIVE); OCCULT BLOOD,URINE NEGATIVE (NEGATIVE); PROTEIN,URINE NEGATIVE (NEGATIVE)
[2024-10-03 12:20] LABS: ALBUMIN 3.7 g/dL (3.4-5.0); BILIRUBIN TOTAL 0.6 mg/dL (0.0-1.0); CALCIUM 9.6 mg/dL (8.4-10.1); CREATININE 1.6 mg/dL (0.7-1.3); EST CRCL DRUG DOSING (CG) 40.38 mL/min; POTASSIUM,K 4.5 mEq/L (3.5-5.0); PROTEIN TOTAL,TP 7.4 g/dL (6.4-8.2)
== END 2024-10-03 14:30 | disposition home or self-care (01) ==
LOC: CC.ED 11:15
DX: R55 Syncope and collapse (principal); I10 Essential (primary) hypertension; I25.2 Old myocardial infarction; K21.9 Gastro-esophageal reflux disease without esophagitis; E78.00 Pure hypercholesterolemia, unspecified; Z88.0 Allergy status to penicillin; Z88.8 Allergy status to other drugs, medicaments and biological substances; Z79.899 Other long term (current) drug therapy; Z86.16 Personal history of COVID-19; Z90.49 Acquired absence of other specified parts of digestive tract
CPT/HCPCS: 36415; 70450; 71045; 80053; 81003; 83735; 84484; 85025; 85730; 93005; 93010; 99284; 99285

== ENCOUNTER 2025-02-19 06:34 | Emergency (ER) | payer BC, MEDICARE ==
[2025-02-19 07:24] LABS: BASOPHILS ABSOLUTE AUTO 0.02 10^3/uL (0.00-0.50); BASOPHILS PERCENT AUTO 0.3 % (0-1); EOSINOPHILS ABSOLUTE AUTO 0.13 10^3/uL (0.00-1.50); EOSINOPHILS PERCENT AUTO 1.9 % (0-6); HEMATOCRIT 45.3 % (42.0-52.0); HEMOGLOBIN 15.4 g/dL (14.0-18.0); IMMATURE GRAN ABSOLUTE AUTO 0.01 10^3/uL (0.00-0.49); IMMATURE GRAN PERCENT AUTO 0.1 % (0.0-4.9); LYMPHOCYTES ABSOLUTE AUTO 1.83 10^3/uL (0.60-5.00); LYMPHOCYTES PERCENT AUTO 27.1 % (24-44); MEAN CORPUSCULAR HEMOGLOBIN 30.2 pg (27.0-32.0); MEAN CORPUSCULAR VOLUME 88.8 fL (83.0-97.0); MONOCYTES ABSOLUTE AUTO 0.55 10^3/uL (0.00-1.50); MONOCYTES PERCENT AUTO 8.1 % (0-10); NEUTROPHILS ABSOLUTE AUTO 4.21 x10^3/uL (1.80-8.00); NEUTROPHILS PERCENT AUTO 62.5 % (41-71); PLATELET COUNT,PLT 173 10^3/uL (150-400); WHITE BLOOD CELL COUNT,WBC 6.8 10^3/uL (4.0-11.0)
[2025-02-19 07:46] LABS: INR 0.99 (0.92-1.18); PROTHROMBIN TIME 10.3 SEC (9.3-11.3)
[2025-02-19 07:58] LABS: ALBUMIN 3.6 g/dL (3.4-5.0); BILIRUBIN TOTAL 0.6 mg/dL (0.0-1.0); CALCIUM 9.7 mg/dL (8.4-10.1); CREATININE 1.5 mg/dL (0.7-1.3); EST CRCL DRUG DOSING (CG) 43.07 mL/min; MAGNESIUM 2.1 mg/dL (1.8-2.4); POTASSIUM,K 4.3 mEq/L (3.5-5.0); PROTEIN TOTAL,TP 7.5 g/dL (6.4-8.2)
[2025-02-19 15:06] VITALS: BP 162/88; PULSE 57
== END 2025-02-19 08:15 | disposition home or self-care (01) ==
LOC: CC.ED 06:34
DX: R53.1 Weakness (principal); I10 Essential (primary) hypertension; I48.91 Unspecified atrial fibrillation; I25.2 Old myocardial infarction; I25.10 Atherosclerotic heart disease of native coronary artery without angina pectoris; K21.9 Gastro-esophageal reflux disease without esophagitis; M19.90 Unspecified osteoarthritis, unspecified site; Z88.8 Allergy status to other drugs, medicaments and biological substances; Z88.0 Allergy status to penicillin; Z79.899 Other long term (current) drug therapy; Z79.811 Long term (current) use of aromatase inhibitors; Z86.16 Personal history of COVID-19; Z90.49 Acquired absence of other specified parts of digestive tract
CPT/HCPCS: 36415; 71046; 80053; 83690; 83735; 84484; 85025; 85610; 93005; 99285

== ENCOUNTER 2025-02-25 00:05 | Emergency (ER) | payer BC, MEDICARE ==
[2025-02-25 00:47] LABS: BASOPHILS ABSOLUTE AUTO 0.03 10^3/uL (0.00-0.50); BASOPHILS PERCENT AUTO 0.4 % (0-1); EOSINOPHILS ABSOLUTE AUTO 0.06 10^3/uL (0.00-1.50); EOSINOPHILS PERCENT AUTO 0.8 % (0-6); HEMATOCRIT 41.9 % (42.0-52.0); HEMOGLOBIN 14.5 g/dL (14.0-18.0); IMMATURE GRAN ABSOLUTE AUTO 0.02 10^3/uL (0.00-0.49); IMMATURE GRAN PERCENT AUTO 0.3 % (0.0-4.9); LYMPHOCYTES ABSOLUTE AUTO 1.47 10^3/uL (0.60-5.00); LYMPHOCYTES PERCENT AUTO 19.9 % (24-44); MEAN CORPUSCULAR HEMOGLOBIN 30.9 pg (27.0-32.0); MEAN CORPUSCULAR HGB CONC 34.6 g/dL (32.0-36.0); MEAN CORPUSCULAR VOLUME 89.3 fL (83.0-97.0); MONOCYTES ABSOLUTE AUTO 0.43 10^3/uL (0.00-1.50); MONOCYTES PERCENT AUTO 5.8 % (0-10); NEUTROPHILS ABSOLUTE AUTO 5.37 x10^3/uL (1.80-8.00); NEUTROPHILS PERCENT AUTO 72.8 % (41-71); PLATELET COUNT,PLT 152 10^3/uL (150-400); RED BLOOD CELL COUNT 4.69 x10^6/uL (4.50-6.00); WHITE BLOOD CELL COUNT,WBC 7.4 10^3/uL (4.0-11.0)
[2025-02-25 01:07] LABS: ALBUMIN 3.4 g/dL (3.4-5.0); BILIRUBIN TOTAL 0.5 mg/dL (0.0-1.0); CALCIUM 9.4 mg/dL (8.4-10.1); CREATININE 1.6 mg/dL (0.7-1.3); EST CRCL DRUG DOSING (CG) 40.38 mL/min; MAGNESIUM 1.9 mg/dL (1.8-2.4); POTASSIUM,K 4.2 mEq/L (3.5-5.0); PROTEIN TOTAL,TP 7.2 g/dL (6.4-8.2)
[2025-02-25] MEDS: Morphine 4 MG/ML VIAL IVPUSH ONE (01:29)
[2025-02-25] MEDS: Ondansetron 4 MG/2 ML SDV IVPUSH PRN (01:32)
[2025-02-25] MEDS: Nitroglycerin 0.4 MG Tab.SL SL ONE (01:37)
[2025-02-25 01:45] VITALS: PULSE 80
[2025-02-25] MEDS: Aspirin 81 MG Tab.Chew PO ONE (01:53)
[2025-02-25] MEDS: Heparin Sodium 5,000 Units/ML Vial IVPUSH ONE (01:56)
[2025-02-25] MEDS: Heparin Sodium/0.45% NaCl 25,000 UNITS/250 ML BAG IV SCH (02:05)
[2025-02-25] MEDS: Nitroglycerin/D5W 25 MG/250 ML BOTTLE IV SCH (02:27)
[2025-02-25] MEDS: Nitroglycerin/D5W 25 MG/250 ML BOTTLE ONE (02:52)
[2025-02-25] MEDS: Heparin Sodium/0.45% NaCl 25,000 UNITS/250 ML BAG ONE (02:52)
[2025-02-25 03:35] VITALS: BP 130/87
== END 2025-02-25 03:35 ==
LOC: CC.ED 00:05
DX: I21.4 Non-ST elevation (NSTEMI) myocardial infarction (principal); I24.9 Acute ischemic heart disease, unspecified; I48.91 Unspecified atrial fibrillation; I25.10 Atherosclerotic heart disease of native coronary artery without angina pectoris; I10 Essential (primary) hypertension; E78.00 Pure hypercholesterolemia, unspecified; I25.2 Old myocardial infarction; Z95.5 Presence of coronary angioplasty implant and graft; Z86.73 Personal history of transient ischemic attack (TIA), and cerebral infarction without residual deficits; Z86.16 Personal history of COVID-19; Z95.1 Presence of aortocoronary bypass graft; Z88.0 Allergy status to penicillin; Z88.8 Allergy status to other drugs, medicaments and biological substances; Z79.899 Other long term (current) drug therapy; Z79.02 Long term (current) use of antithrombotics/antiplatelets
CPT/HCPCS: 36415; 71045; 80053; 83735; 83880; 84484; 85025; 85730; 93005; 93010; 96365; 96366; 96375; 99284; 99285-25; A9270-GY; J1644; J2270; J2305; J2405

== ENCOUNTER 2025-06-08 06:25 | Emergency (ER) | payer OTHER, BC, MEDICARE ==
[2025-06-08 07:33] VITALS: BP 172/84; PULSE 59
== END 2025-06-08 07:22 | disposition home or self-care (01) ==
LOC: CC.ED 06:25 → SUPCPDRO 06:25 → CC.ED 07:22
DX: F40.248 Other situational type phobia (principal); Z88.5 Allergy status to narcotic agent; E78.00 Pure hypercholesterolemia, unspecified; I10 Essential (primary) hypertension; I25.2 Old myocardial infarction; K21.9 Gastro-esophageal reflux disease without esophagitis; Z95.5 Presence of coronary angioplasty implant and graft; Z86.73 Personal history of transient ischemic attack (TIA), and cerebral infarction without residual deficits; I48.91 Unspecified atrial fibrillation; I25.10 Atherosclerotic heart disease of native coronary artery without angina pectoris; Z79.899 Other long term (current) drug therapy; Z79.82 Long term (current) use of aspirin
CPT/HCPCS: 99283

== ENCOUNTER 2025-06-10 18:00 | Emergency (ER) | payer BC, MEDICARE ==
[2025-06-10 18:22] LABS: BASOPHILS ABSOLUTE AUTO 0.04 10^3/uL (0.00-0.50); BASOPHILS PERCENT AUTO 0.6 % (0-1); EOSINOPHILS ABSOLUTE AUTO 0.24 10^3/uL (0.00-1.50); EOSINOPHILS PERCENT AUTO 3.4 % (0-6); IMMATURE GRAN ABSOLUTE AUTO 0.04 10^3/uL (0.00-0.49); IMMATURE GRAN PERCENT AUTO 0.6 % (0.0-4.9); LYMPHOCYTES ABSOLUTE AUTO 1.95 10^3/uL (0.60-5.00); LYMPHOCYTES PERCENT AUTO 27.3 % (24-44); MONOCYTES ABSOLUTE AUTO 0.47 10^3/uL (0.00-1.50); MONOCYTES PERCENT AUTO 6.6 % (0-10); NEUTROPHILS ABSOLUTE AUTO 4.41 x10^3/uL (1.80-8.00); NEUTROPHILS PERCENT AUTO 61.5 % (41-71); PLATELET COUNT,PLT 161 10^3/uL (150-400); RED BLOOD CELL COUNT 4.68 x10^6/uL (4.50-6.00); WHITE BLOOD CELL COUNT,WBC 7.2 10^3/uL (4.0-11.0)
[2025-06-10 18:35] LABS: APPEARANCE,URINE CLEAR (CLEAR); GLUCOSE,URINE NEGATIVE (NEGATIVE); OCCULT BLOOD,URINE NEGATIVE (NEGATIVE)
[2025-06-10 18:38] LABS: ALANINE AMINOTRANSFERASE,ALT 17.0 U/L (12-78); ASPARTATE AMNIOTRANSFERASE,AST 12.0 U/L (15-37); BILIRUBIN TOTAL 0.4 mg/dL (0.0-1.0); BLOOD UREA NITROGEN,BUN 9.0 mg/dL (7-18); CARBON DIOXIDE,CO2 28.0 mmol/L (21-32); CHLORIDE,CL 101.0 mEq/L (98-106); CREATININE 1.6 mg/dL (0.7-1.3); EST CRCL DRUG DOSING (CG) 40.38 mL/min; ESTIMATED GFR 46.0 mL/min (>=60); GLUCOSE RANDOM 136.0 mg/dL (75-99); POTASSIUM,K 3.7 mEq/L (3.5-5.0); PROTEIN TOTAL,TP 7.3 g/dL (6.4-8.2); SODIUM,NA 138.0 mEq/L (136-145)
[2025-06-10] MEDS: Iopamidol 755 Mg/ML 100 ML Bottle IVPUSH ONE (19:23)
[2025-06-10 22:15] VITALS: BP 174/92; PULSE 56
== END 2025-06-10 22:25 | disposition home or self-care (01) ==
LOC: CC.ED 18:00
DX: G45.9 Transient cerebral ischemic attack, unspecified (principal); I25.10 Atherosclerotic heart disease of native coronary artery without angina pectoris; I48.91 Unspecified atrial fibrillation; E78.00 Pure hypercholesterolemia, unspecified; I25.2 Old myocardial infarction; K21.9 Gastro-esophageal reflux disease without esophagitis; Z86.16 Personal history of COVID-19; Z95.1 Presence of aortocoronary bypass graft; Z79.82 Long term (current) use of aspirin; Z79.02 Long term (current) use of antithrombotics/antiplatelets; Z79.899 Other long term (current) drug therapy; Z88.0 Allergy status to penicillin; Z88.8 Allergy status to other drugs, medicaments and biological substances
CPT/HCPCS: 36415; 70450; 70496; 70498; 80053; 81003; 83735; 84484; 85025; 85730; 93010; 99284; 99285; Q9967

== ENCOUNTER 2025-06-15 19:40 | Observation (INO) | payer BC, MEDICARE ==
[2025-06-15] MEDS: LORazepam 2 MG/ML SDV IVPUSH ONE (19:56)
[2025-06-15 20:05] LABS: BASOPHILS ABSOLUTE AUTO 0.05 10^3/uL (0.00-0.50); BASOPHILS PERCENT AUTO 0.4 % (0-1); EOSINOPHILS ABSOLUTE AUTO 0.43 10^3/uL (0.00-1.50); EOSINOPHILS PERCENT AUTO 3.5 % (0-6); IMMATURE GRAN ABSOLUTE AUTO 0.07 10^3/uL (0.00-0.49); IMMATURE GRAN PERCENT AUTO 0.6 % (0.0-4.9); LYMPHOCYTES ABSOLUTE AUTO 3.54 10^3/uL (0.60-5.00); LYMPHOCYTES PERCENT AUTO 28.4 % (24-44); MONOCYTES ABSOLUTE AUTO 0.77 10^3/uL (0.00-1.50); MONOCYTES PERCENT AUTO 6.2 % (0-10); NEUTROPHILS ABSOLUTE AUTO 7.60 x10^3/uL (1.80-8.00); NEUTROPHILS PERCENT AUTO 60.9 % (41-71); PLATELET COUNT,PLT 235 10^3/uL (150-400); RED BLOOD CELL COUNT 5.16 x10^6/uL (4.50-6.00); WHITE BLOOD CELL COUNT,WBC 12.5 10^3/uL (4.0-11.0)
[2025-06-15] MEDS: levETIRAcetam 500 MG/5 ML SDV IVPUSH ONE ×2 (20:07→21:43)
[2025-06-15 20:22] LABS: ALANINE AMINOTRANSFERASE,ALT 20 U/L (12-78); ASPARTATE AMNIOTRANSFERASE,AST 12 U/L (15-37); BILIRUBIN TOTAL 0.6 mg/dL (0.0-1.0); BLOOD UREA NITROGEN,BUN 19 mg/dL (7-18); CARBON DIOXIDE,CO2 19 mmol/L (21-32); CHLORIDE,CL 100 mEq/L (98-106); CREATININE 1.9 mg/dL (0.7-1.3); GLUCOSE RANDOM 156 mg/dL (75-99); POTASSIUM,K 3.8 mEq/L (3.5-5.0); PROTEIN TOTAL,TP 7.8 g/dL (6.4-8.2); SODIUM,NA 138 mEq/L (136-145)
[2025-06-15] MEDS: Ondansetron 4 MG/2 ML SDV IVPUSH PRN (20:23)
[2025-06-15 20:25] LABS: ESTIMATED GFR 37 mL/min (>=60)
[2025-06-15] MEDS: Ondansetron 4 MG/2 ML SDV ONE (21:43)
[2025-06-15] MEDS: LORazepam 2 MG/ML SDV ONE (21:43)
[2025-06-15] MEDS: levETIRAcetam 500 MG/5 ML SDV ONE (21:43)
[2025-06-15] MEDS ORDERED: LORazepam 2 MG/ML SDV IVPUSH PRN (22:25)
[2025-06-15] MEDS ORDERED: Sodium Chloride 0.9% 10 ML Syringe FLUSH PRN (22:40)
[2025-06-15] MEDS ORDERED: Ondansetron 4 MG Tab.DIS PO PRN (22:40)
[2025-06-16 00:18] LABS: APPEARANCE,URINE TURBID (CLEAR); GLUCOSE,URINE NEGATIVE (NEGATIVE); OCCULT BLOOD,URINE TRACE-INTACT (NEGATIVE)
[2025-06-16 00:21] LABS: METHAMPHETAMINES,URINE NEGATIVE (NEGATIVE)
[2025-06-16 00:22] LABS: AMPHETAMINES,URINE NEGATIVE (NEGATIVE); BARBITURATES,URINE NEGATIVE (NEGATIVE); MDMA (ECSTASY), URINE NEGATIVE (NEGATIVE); OPIATES,URINE NEGATIVE (NEGATIVE); OXYCODONE,URINE NEGATIVE (NEGATIVE); PHENCYCLIDINE,URINE NEGATIVE (NEGATIVE); TCA,URINE NEGATIVE (NEGATIVE)
[2025-06-16] MEDS: Heparin Sodium 5,000 Units/ML Vial IVPUSH ONE (01:30)
[2025-06-16] MEDS: Heparin Sodium/0.45% NaCl 25,000 UNITS/250 ML BAG IV SCH (01:36)
[2025-06-16 02:23] VITALS: BP 129/69; PULSE 61
== END 2025-06-16 02:52 ==
LOC: CC.ED 19:40 → CC.MS 21:48
PROVIDERS: ADMIT Physician Assistant Medical; ATTEND Physician Assistant Medical
DX: I21.4 Non-ST elevation (NSTEMI) myocardial infarction (principal); R41.82 Altered mental status, unspecified; I48.91 Unspecified atrial fibrillation; I25.10 Atherosclerotic heart disease of native coronary artery without angina pectoris; I10 Essential (primary) hypertension; Z88.8 Allergy status to other drugs, medicaments and biological substances; Z88.0 Allergy status to penicillin; Z79.82 Long term (current) use of aspirin; Z79.899 Other long term (current) drug therapy
CPT/HCPCS: 36415; 70450; 80053; 80305; 81001; 82550; 83735; 84484; 85025; 85730; 93005; 96365; 96375; 96376; 99285; G0378; J1644; J1953; J2060; J2405; J7030; 96374; 99223; 99239